=== PATIENT | female | born 1960 | race Caucasian/White ===

== ENCOUNTER → 2016-09-16 | Outpatient (CLI) | payer OTHER ==
[~2016-09-16] MED LIST: ASPI81CH PO; AUGM875T27 PO; BACIDCA PO; BACT800T5 PO; BACTDSTA PO; CEPA5.4L2 MT; CEPH500C PO; DOCU10CA PO; DOCU10ELUD PO; ENDO5TAB7 PO; GLIP5TAB8 PO; INSUH10VL SQ; INSULANT SC; METFORMIN PO; MICO2POW TOP; NAPR250T2 PO; NEUR250S PO; NOVOINJ13 SC; PERC5TAB6 PO; PERCOCET PO; SULF400T PO; TYLE325T5 PO
[2016-09-16 17:22] LABS: BASO # 0.1 K/mm3 (0.0-0.2); BASO % 0.8 % (0.0-1.0); EOS # 0.3 K/mm3 (0.0-0.50); LARGE UNSTAINED CELL # 0.2 K/mm3 (0.0-0.4); LARGE UNSTAINED CELL % 2.9 % (0.0-4.0); LYMPH # 2.5 K/mm3 (1.5-4.5); LYMPH % 34.3 % (24.0-44.0); MEAN CORPUSCULAR HEMOGLOBIN 28.3 pg (27.0-33.0); MEAN CORPUSCULAR HGB CONC 31.8 g/dl (32.0-36.5); MONO # 0.4 K/mm3 (0.0-0.8); MONO % 5.8 % (0.0-5.0); NEUTROPHILS # 3.9 K/mm3 (1.8-7.7); NEUTROPHILS % 52.2 % (36.0-66.0); PLATELET COUNT, AUTOMATED 224 k/mm3 (150-450); RED CELL DISTRIBUTION WIDTH 12.4 % (11.5-14.5); WHITE BLOOD COUNT 7.4 K/mm3 (4.0-10.0)
[2016-09-16 17:55] LABS: INR 0.81
[2016-09-16 21:28] LABS: ANION GAP 7 MEQ/L (8-16); BLOOD UREA NITROGEN 18 MG/DL (7-18); CALCIUM LEVEL 8.6 MG/DL (8.5-10.1); CARBON DIOXIDE LEVEL 28 MEQ/L (21-32); CHLORIDE LEVEL 102 MEQ/L (98-107); CREATININE FOR GFR 0.76 MG/DL (0.55-1.02); GLOMERULAR FILTRATION RATE > 60.0 (>51); POTASSIUM SERUM 5.1 MEQ/L (3.5-5.1); SODIUM LEVEL 137 MEQ/L (136-145)
[2016-09-16 21:41] LABS: GLUCOSE, FASTING 422 MG/DL (70-105)
== END ==
LOC: M LRY 14:47
PROVIDERS: ATTEND Surgery Vascular Surgery
DX: I70.212 Atherosclerosis of native arteries of extremities with intermittent claudication, left leg (principal); Z01.818 Encounter for other preprocedural examination; D69.8 Other specified hemorrhagic conditions

== ENCOUNTER → 2016-09-16 | Outpatient (REF) | payer OTHER ==
[2016-09-16 17:49] LABS: ALBUMIN 3.5 GM/DL (3.2-5.2); ALBUMIN/GLOBULIN RATIO 0.92 (1.00-1.93); ALKALINE PHOSPHATASE 110 U/L (45-117); ALT/SGPT 28 U/L (12-78); ANION GAP 9 MEQ/L (8-16); AST/SGOT 15 U/L (15-37); BILIRUBIN,TOTAL 0.4 MG/DL (0.2-1.0); BLOOD UREA NITROGEN 18 MG/DL (7-18); CALCIUM LEVEL 8.9 MG/DL (8.5-10.1); CARBON DIOXIDE LEVEL 27 MEQ/L (21-32); CHLORIDE LEVEL 102 MEQ/L (98-107); CHOLESTEROL LEVEL 266 MG/DL (<200); CREATININE FOR GFR 0.77 MG/DL (0.55-1.02); GLOMERULAR FILTRATION RATE > 60.0 (>51); POTASSIUM SERUM 5.1 MEQ/L (3.5-5.1); SODIUM LEVEL 138 MEQ/L (136-145); TOTAL PROTEIN 7.3 GM/DL (6.4-8.2); TRIGLYCERIDES LEVEL 382 MG/DL (<150)
[2016-09-16 18:58] LABS: GLUCOSE, FASTING 429 MG/DL (70-105)
[2016-09-16 21:20] LABS: MEAN CORPUSCULAR HEMOGLOBIN 28.7 pg (27.0-33.0); MEAN CORPUSCULAR HGB CONC 32.2 g/dl (32.0-36.5); RED CELL DISTRIBUTION WIDTH 13.4 % (11.5-14.5); WHITE BLOOD COUNT 8.5 K/mm3 (4.0-10.0)
== END ==
LOC: M SFHCLERA 14:12
PROVIDERS: ATTEND Family Medicine
DX: E11.8 Type 2 diabetes mellitus with unspecified complications (principal)

== ENCOUNTER → 2016-11-14 | Outpatient (REF) | payer OTHER ==
[2016-11-14 19:11] LABS: ANION GAP 6 MEQ/L (8-16); BLOOD UREA NITROGEN 12 MG/DL (7-18); CALCIUM LEVEL 9.2 MG/DL (8.5-10.1); CARBON DIOXIDE LEVEL 30 MEQ/L (21-32); CHLORIDE LEVEL 105 MEQ/L (98-107); GLOMERULAR FILTRATION RATE > 60.0 (>51); GLUCOSE, FASTING 134 MG/DL (70-105); POTASSIUM SERUM 4.2 MEQ/L (3.5-5.1); SODIUM LEVEL 141 MEQ/L (136-145)
== END ==
LOC: M LABDRAW1 16:52
PROVIDERS: ATTEND Physician Assistant Medical
DX: E11.621 Type 2 diabetes mellitus with foot ulcer (principal)

== ENCOUNTER → 2017-01-27 | Outpatient (REF) | payer OTHER ==
[2017-01-27 17:06] LABS: MEAN CORPUSCULAR HEMOGLOBIN 30.1 pg (27.0-33.0); MEAN CORPUSCULAR VOLUME 88.6 fl (80.0-96.0); RED CELL DISTRIBUTION WIDTH 12.5 % (11.5-14.5); WHITE BLOOD COUNT 10.3 K/mm3 (4.0-10.0)
[2017-01-27 17:27] LABS: ALBUMIN/GLOBULIN RATIO 1.05 (1.00-1.93); ALKALINE PHOSPHATASE 89 U/L (45-117); ALT/SGPT 28 U/L (12-78); ANION GAP 8 MEQ/L (8-16); AST/SGOT 12 U/L (15-37); BILIRUBIN,TOTAL 0.8 MG/DL (0.2-1.0); BLOOD UREA NITROGEN 21 MG/DL (7-18); CALCIUM LEVEL 9.4 MG/DL (8.5-10.1); CARBON DIOXIDE LEVEL 28 MEQ/L (21-32); CHLORIDE LEVEL 98 MEQ/L (98-107); CREATININE FOR GFR 0.95 MG/DL (0.55-1.02); GLOMERULAR FILTRATION RATE > 60.0 (>51); GLUCOSE, FASTING 291 MG/DL (70-105); POTASSIUM SERUM 4.7 MEQ/L (3.5-5.1); SODIUM LEVEL 134 MEQ/L (136-145); TOTAL PROTEIN 7.8 GM/DL (6.4-8.2)
== END ==
LOC: M SFHCLERA 11:53
PROVIDERS: ATTEND Family Medicine
DX: E11.621 Type 2 diabetes mellitus with foot ulcer (principal)

== ENCOUNTER → 2017-01-30 | Outpatient (REF) | payer OTHER | LOC: M LAB REF 16:51 | PROVIDERS: ATTEND Advanced Practice Midwife | DX: Z12.4 Encounter for screening for malignant neoplasm of cervix (principal) ==

== ENCOUNTER → 2017-03-13 | Outpatient (CLI) | payer OTHER ==
[~2017-03-13] MED LIST changes: +ENDO5TAB PO; -ENDO5TAB7 PO; +PERC5TAB12 PO; -PERC5TAB6 PO
--- NOTE | 2017-03-18 11:40 | REPMRS ---
Patient History The patient states she had a clinical breast exam in November 2016.Patient is postmenopausal. No known family history of cancer. Digital Mammo Screening Bilat: March 13, 2017 - Exam #: [id number] Bilateral CC and MLO view(s) were taken. Technologist: Pinky Vigil, Technologist FINDINGS: There are scattered fibroglandular densities. There has been no change in the appearance of the mammogram from the prior studies. There is a mild amount of residual fibroglandular tissue which is fairly symmetric. There is no interval development of dominant mass, architectural distortion, or clustered microcalcification suggestive of malignancy. Large coarse benign appearing calcifications are present. We were unable to locate any priors for comparison. No significant changes when compared with prior studies. ASSESSMENT: BI-RADS/ACR category 2 mammogram. Benign finding(s). Recommendation Routine screening mammogram in 1 year (for women over age 40). This mammogram was interpreted with the aid of an FDA-approved computer-aided dectection system. A. Negative x-ray reports should not delay biopsy if a dominant or clinically suspicious mass is present. B. Four to eight percent of cancers are not identified by mammography. C. Adenosis and dense breast may obscure an underlying neoplasm. Electronically Signed By: Jin Henning MD 03/18/17 [id number]
== END ==
LOC: M RAD 13:20
PROVIDERS: ATTEND Family Medicine
DX: Z12.4 Encounter for screening for malignant neoplasm of cervix (principal); Z12.39 Encounter for other screening for malignant neoplasm of breast

== ENCOUNTER → 2017-06-15 | Outpatient (REF) | payer MEDICARE, MEDICAID | LOC: M SFHCLERA 13:10 | PROVIDERS: ATTEND Family Medicine | DX: E10.65 Type 1 diabetes mellitus with hyperglycemia (principal) | CPT/HCPCS: 82043; 83036; G0463 ==

== ENCOUNTER → 2017-09-29 | Outpatient (REF) | payer MEDICARE, MEDICAID ==
[2017-09-29 21:12] LABS: ANION GAP 11 MEQ/L (8-16); BLOOD UREA NITROGEN 22 MG/DL (7-18); CALCIUM LEVEL 9.7 MG/DL (8.5-10.1); CARBON DIOXIDE LEVEL 29 MEQ/L (21-32); CHLORIDE LEVEL 101 MEQ/L (98-107); CREATININE FOR GFR 0.97 MG/DL (0.55-1.30); GLOMERULAR FILTRATION RATE > 60.0 (>51); POTASSIUM SERUM 4.4 MEQ/L (3.5-5.1); SODIUM LEVEL 141 MEQ/L (136-145)
[2017-09-29 21:19] LABS: GLUCOSE, FASTING 414 MG/DL (70-100)
[2017-09-29 21:34] LABS: ESTIMATED AVERAGE GLUCOSE 352 MG/DL (60-110); HEMOGLOBIN A1c 13.9 %
== END ==
LOC: M SFHCLERA 17:25
DX: E11.65 Type 2 diabetes mellitus with hyperglycemia (principal)
CPT/HCPCS: 83036

== ENCOUNTER → 2018-01-14 | Outpatient (REF) | payer MEDICARE, MEDICAID ==
[2018-01-14 12:35] LABS: HEMATOCRIT 38.6 % (36.0-47.0); HEMOGLOBIN 13.1 g/dl (12.0-15.5); MEAN CORPUSCULAR HEMOGLOBIN 29.6 pg (27.0-33.0); MEAN CORPUSCULAR HGB CONC 33.9 g/dl (32.0-36.5); MEAN CORPUSCULAR VOLUME 87.3 fl (80.0-96.0); PLATELET COUNT, AUTOMATED 222 10^3/uL (150-450); RED BLOOD COUNT 4.42 10^6/uL (4.00-5.40); RED CELL DISTRIBUTION WIDTH 12.2 % (11.5-14.5); WHITE BLOOD COUNT 8.5 10^3/uL (4.0-10.0)
[2018-01-14 12:57] LABS: ESTIMATED AVERAGE GLUCOSE 292 MG/DL (60-110); HEMOGLOBIN A1c 11.8 %
[2018-01-14 13:08] LABS: ALBUMIN 3.6 GM/DL (3.2-5.2); ALBUMIN/GLOBULIN RATIO 0.92 (1.00-1.93); ALKALINE PHOSPHATASE 117 U/L (45-117); ALT/SGPT 26 U/L (12-78); ANION GAP 9 MEQ/L (8-16); AST/SGOT 11 U/L (7-37); BILIRUBIN,TOTAL 0.7 MG/DL (0.2-1.0); BLOOD UREA NITROGEN 17 MG/DL (7-18); CALCIUM LEVEL 9.3 MG/DL (8.5-10.1); CARBON DIOXIDE LEVEL 26 MEQ/L (21-32); CHLORIDE LEVEL 103 MEQ/L (98-107); CHOLESTEROL LEVEL 183 MG/DL (<200); CHOLESTEROL RISK RATIO 3.155 (<5); CREATININE FOR GFR 0.81 MG/DL (0.55-1.30); GLOMERULAR FILTRATION RATE > 60.0 (>51); GLUCOSE, FASTING 353 MG/DL (70-100); HDL CHOLESTEROL 58 MG/DL (>40); LDL CHOLESTEROL 78.8 MG/DL (<100); NON-HDL-C 125 MG/DL; POTASSIUM SERUM 4.9 MEQ/L (3.5-5.1); SODIUM LEVEL 138 MEQ/L (136-145); TOTAL PROTEIN 7.5 GM/DL (6.4-8.2); TRIGLYCERIDES LEVEL 231 MG/DL (<150)
== END ==
LOC: M SFHCLERA 08:17
DX: E11.65 Type 2 diabetes mellitus with hyperglycemia (principal)
CPT/HCPCS: 84443

== ENCOUNTER → 2018-05-25 | Outpatient (REF) | payer MEDICARE, OTHER ==
[2018-05-25 17:41] LABS: ANION GAP 10 MEQ/L (8-16); BLOOD UREA NITROGEN 28 MG/DL (7-18); CALCIUM LEVEL 8.9 MG/DL (8.8-10.2); CARBON DIOXIDE LEVEL 26 MEQ/L (21-32); CHLORIDE LEVEL 101 MEQ/L (98-107); GLOMERULAR FILTRATION RATE > 60.0 (>45); GLUCOSE, FASTING 300 MG/DL (70-100); POTASSIUM SERUM 4.8 MEQ/L (3.5-5.1); SODIUM LEVEL 137 MEQ/L (136-145)
[2018-05-25 18:31] LABS: ESTIMATED AVERAGE GLUCOSE 272 MG/DL (60-110); HEMOGLOBIN A1c 11.1 %
== END ==
LOC: M SFHCLERA 14:39
DX: E11.621 Type 2 diabetes mellitus with foot ulcer (principal)
CPT/HCPCS: 83036

== ENCOUNTER → 2018-08-25 | Outpatient (REF) | payer MEDICARE, MEDICAID ==
[2018-08-25 20:18] LABS: BLOOD UREA NITROGEN 18 MG/DL (7-18); CALCIUM LEVEL 9.5 MG/DL (8.8-10.2); CARBON DIOXIDE LEVEL 29 MEQ/L (21-32); CHLORIDE LEVEL 104 MEQ/L (98-107); CREATININE FOR GFR 0.79 MG/DL (0.55-1.30); GLOMERULAR FILTRATION RATE > 60.0 (>45); GLUCOSE, FASTING 111 MG/DL (70-100); POTASSIUM SERUM 4.1 MEQ/L (3.5-5.1); SODIUM LEVEL 141 MEQ/L (136-145)
[2018-08-25 20:41] LABS: HEMOGLOBIN A1c 8.4 %
== END ==
LOC: M SFHCLERA 16:48
PROVIDERS: ATTEND Family Medicine
DX: E11.621 Type 2 diabetes mellitus with foot ulcer (principal)

== ENCOUNTER → 2018-09-08 | Outpatient (REF) | payer MEDICARE, MEDICAID ==
[2018-09-08 17:17] LABS: ALBUMIN 3.7 GM/DL (3.2-5.2); ALT/SGPT 44 U/L (12-78); BILIRUBIN,TOTAL 0.7 MG/DL (0.2-1.0); BLOOD UREA NITROGEN 18 MG/DL (7-18); CALCIUM LEVEL 9.2 MG/DL (8.8-10.2); CARBON DIOXIDE LEVEL 29 MEQ/L (21-32); CHLORIDE LEVEL 106 MEQ/L (98-107); CREATININE FOR GFR 0.71 MG/DL (0.55-1.30); GLOMERULAR FILTRATION RATE > 60.0 (>45); GLUCOSE, FASTING 102 MG/DL (70-100); POTASSIUM SERUM 4.2 MEQ/L (3.5-5.1); SODIUM LEVEL 140 MEQ/L (136-145); TOTAL PROTEIN 7.3 GM/DL (6.4-8.2)
== END ==
LOC: M SFHCLERA 10:44
PROVIDERS: ATTEND Family Medicine
DX: Z01.818 Encounter for other preprocedural examination (principal); H43.12 Vitreous hemorrhage, left eye

== ENCOUNTER → 2018-11-08 | Outpatient (REF) | payer MEDICARE, MEDICAID ==
[2018-11-08 20:51] LABS: ALBUMIN 3.6 GM/DL (3.2-5.2); ALT/SGPT 51 U/L (12-78); BILIRUBIN,TOTAL 0.6 MG/DL (0.2-1.0); BLOOD UREA NITROGEN 18 MG/DL (7-18); CALCIUM LEVEL 9.2 MG/DL (8.8-10.2); CARBON DIOXIDE LEVEL 29 MEQ/L (21-32); CHLORIDE LEVEL 106 MEQ/L (98-107); CHOLESTEROL LEVEL 236 MG/DL (<200); CHOLESTEROL RISK RATIO 4.627 (<5); CREATININE FOR GFR 0.72 MG/DL (0.55-1.30); GLOMERULAR FILTRATION RATE > 60.0 (>45); GLUCOSE, FASTING 127 MG/DL (70-100); HDL CHOLESTEROL 51 MG/DL (>40); LDL CHOLESTEROL 107 MG/DL (<100); NON-HDL-C 185 MG/DL; POTASSIUM SERUM 4.2 MEQ/L (3.5-5.1); SODIUM LEVEL 141 MEQ/L (136-145); TOTAL PROTEIN 7.3 GM/DL (6.4-8.2); TRIGLYCERIDES LEVEL 388 MG/DL (<150)
[2018-11-08 20:57] LABS: HEMOGLOBIN A1c 6.9 %
== END ==
LOC: M SFHCLERA 15:49
PROVIDERS: ATTEND Family Medicine
DX: E11.621 Type 2 diabetes mellitus with foot ulcer (principal)

== ENCOUNTER → 2019-03-03 | Outpatient (REF) | payer MEDICARE, MEDICAID ==
[~2019-03-03] MED LIST changes: -ASPI81CH PO; +ASPI81CH49 PO; -BACTDSTA PO; -DOCU10ELUD PO; +DOCU5LIQ PO; +OXYC1TAB23 PO; -PERCOCET PO; +SULF1TAB23 PO
[2019-03-03 17:01] LABS: ALBUMIN 3.5 GM/DL (3.2-5.2); ALT/SGPT 57 U/L (12-78); BILIRUBIN,TOTAL 0.8 MG/DL (0.2-1.0); BLOOD UREA NITROGEN 16 MG/DL (7-18); CALCIUM LEVEL 9.5 MG/DL (8.8-10.2); CARBON DIOXIDE LEVEL 29 MEQ/L (21-32); CHLORIDE LEVEL 105 MEQ/L (98-107); CHOLESTEROL LEVEL 141 MG/DL (<200); CHOLESTEROL RISK RATIO 2.711 (<5); CREATININE FOR GFR 0.91 MG/DL (0.55-1.30); GLOMERULAR FILTRATION RATE > 60.0 (>45); GLUCOSE, FASTING 222 MG/DL (70-100); HDL CHOLESTEROL 52 MG/DL (>40); LDL CHOLESTEROL 49 MG/DL (<100); NON-HDL-C 89 MG/DL; POTASSIUM SERUM 4.1 MEQ/L (3.5-5.1); SODIUM LEVEL 141 MEQ/L (136-145); TOTAL PROTEIN 7.2 GM/DL (6.4-8.2); TRIGLYCERIDES LEVEL 202 MG/DL (<150)
[2019-03-03 17:02] LABS: BASO # 0.1 10^3/uL (0.0-0.2); BASO % 0.5 % (0.0-1.0); EOS # 0.5 10^3/uL (0.0-0.50); EOS % 4.8 % (0.0-3.0); HEMATOCRIT 41.3 % (36.0-47.0); HEMOGLOBIN 13.2 g/dl (12.0-15.5); LYMPH # 2.5 10^3/uL (1.5-4.5); LYMPH % 23.7 % (24.0-44.0); MEAN CORPUSCULAR HEMOGLOBIN 28.6 pg (27.0-33.0); MEAN CORPUSCULAR VOLUME 89.6 fl (80.0-96.0); MONO # 0.8 10^3/uL (0.0-0.8); MONO % 7.8 % (0.0-5.0); NEUTROPHILS # 6.7 10^3/uL (1.8-7.7); NEUTROPHILS % 62.8 % (36.0-66.0); PLATELET COUNT, AUTOMATED 232 10^3/uL (150-450); RED BLOOD COUNT 4.61 10^6/uL (4.00-5.40); WHITE BLOOD COUNT 10.7 10^3/uL (4.0-10.0)
[2019-03-03 18:01] LABS: HEMOGLOBIN A1c 7.7 %
== END ==
LOC: M SFHCLERA 11:49
PROVIDERS: ATTEND Family Medicine
DX: E78.5 Hyperlipidemia, unspecified (principal); R10.11 Right upper quadrant pain; E11.621 Type 2 diabetes mellitus with foot ulcer

== ENCOUNTER → 2019-04-06 | Outpatient (REF) | payer MEDICARE, MEDICAID ==
[2019-04-06 19:16] LABS: APPEARANCE, URINE CLOUDY (CLEAR); BACTERIA, URINE AUTO 2+ (NEGATIVE); BILIRUBIN, URINE AUTO NEGATIVE (NEGATIVE); BLOOD, URINE BLOOD NEGATIVE (NEGATIVE); COLOR, URINE YELLOW (YELLOW); GLUCOSE, URINE (UA) AUTO NEGATIVE (NEGATIVE); KETONE, URINE AUTO NEGATIVE (NEGATIVE); LEUKOCYTE ESTERASE, URINE AUTO 3+ (NEGATIVE); MUCUS, URINE SMALL (NEGATIVE); NITRITE, URINE AUTO NEGATIVE (NEGATIVE); PROTEIN, URINE AUTO NEGATIVE (NEGATIVE); RBC, URINE AUTO 2 /HPF (0-3); SQUAMOUS EPITHELIAL CELL UR AU 2 /HPF (0-6); UROBILINOGEN, URINE AUTO 0.2 mg/dL (0.0-2.0); WBC, URINE AUTO TNTC /HPF (0-3)
== END ==
LOC: M SFHCLERA 11:30
PROVIDERS: ATTEND Family Medicine
DX: N39.41 Urge incontinence (principal)

== ENCOUNTER → 2019-05-31 | Outpatient (REF) | payer MEDICARE, MEDICAID ==
[2019-05-31 17:00] LABS: APPEARANCE, URINE CLEAR (CLEAR); BACTERIA, URINE AUTO NEGATIVE (NEGATIVE); BILIRUBIN, URINE AUTO NEGATIVE (NEGATIVE); BLOOD, URINE BLOOD NEGATIVE (NEGATIVE); COLOR, URINE YELLOW (YELLOW); GLUCOSE, URINE (UA) AUTO 1+ mg/dL (NEGATIVE); KETONE, URINE AUTO NEGATIVE (NEGATIVE); LEUKOCYTE ESTERASE, URINE AUTO NEGATIVE (NEGATIVE); MUCUS, URINE SMALL (NEGATIVE); NITRITE, URINE AUTO NEGATIVE (NEGATIVE); PROTEIN, URINE AUTO NEGATIVE (NEGATIVE); RBC, URINE AUTO 1 /HPF (0-3); SPECIFIC GRAVITY URINE AUTO 1.014 (1.002-1.035); SQUAMOUS EPITHELIAL CELL UR AU 0 /HPF (0-6); UROBILINOGEN, URINE AUTO 0.2 mg/dL (0.0-2.0); WBC, URINE AUTO 2 /HPF (0-3)
== END ==
LOC: M SFHCLERA 12:21
PROVIDERS: ATTEND Family Medicine
DX: R82.90 Unspecified abnormal findings in urine (principal); Z23 Encounter for immunization
CPT/HCPCS: 81001; 87086; 90682; G0008; G0463

== ENCOUNTER → 2019-06-16 | Outpatient (CLI) | payer MEDICARE, MEDICAID ==
--- NOTE | 2019-06-16 15:26 | REPMRS ---
Patient History The patient states she has not had a clinical breast exam in over a year. No known family history of cancer. The [facility] lifetime risk for breast cancer is 7.2 %. Digital Mammo Screening Bilat: June 16, 2019 - Exam #: [id number] Bilateral CC and MLO view(s) were taken. Technologist: Chrissy Dykes, Technologist Prior study comparison: March 13, 2017, bilateral digital mammo screening bilat performed at [facility]. FINDINGS: There are scattered fibroglandular densities. There has been no change in the appearance of the mammogram from the prior studies. There is a mild amount of residual fibroglandular tissue which is fairly symmetric. There is no interval development of dominant mass, architectural distortion, or clustered microcalcification suggestive of malignancy. Assessment: BI-RADS/ACR category 1 mammogram. Negative Mammogram. Recommendation Routine screening mammogram in 1 year (for women over age 40). This mammogram was interpreted with the aid of an FDA-approved computer-aided dectection system. Electronically Signed By: Peter Young MD 06/16/19 [id number]
== END ==
LOC: M RAD 10:49
PROVIDERS: ATTEND Family Medicine
DX: Z12.31 Encounter for screening mammogram for malignant neoplasm of breast (principal)

== ENCOUNTER → 2019-07-04 | Outpatient (REF) | payer MEDICARE, MEDICAID ==
[2019-07-04 17:37] LABS: CREATININE FOR GFR 1.13 MG/DL (0.55-1.30)
[2019-07-04 17:38] LABS: CALCIUM LEVEL 9.5 MG/DL (8.8-10.2); GLOMERULAR FILTRATION RATE 52.1 (>45); POTASSIUM SERUM 4.5 MEQ/L (3.5-5.1); THYROID STIMULATING HORMONE 1.73 uIU/ML (0.358-3.740)
[2019-07-04 19:22] LABS: HEMOGLOBIN A1c 7.4 %
== END ==
LOC: M SFHCLERA 12:38
PROVIDERS: ATTEND Family Medicine
DX: E11.621 Type 2 diabetes mellitus with foot ulcer (principal)
CPT/HCPCS: 80048; 83036; 84443; G0463

== ENCOUNTER → 2019-09-19 | Outpatient (REF) | payer MEDICARE, MEDICAID ==
[2019-09-19 18:06] LABS: CALCIUM LEVEL 9.5 MG/DL (8.8-10.2); CREATININE FOR GFR 1.2 MG/DL (0.55-1.30); GLOMERULAR FILTRATION RATE 48.6 (>45); POTASSIUM SERUM 4.6 MEQ/L (3.5-5.1)
== END ==
LOC: M SFHCLERA 10:20
PROVIDERS: ATTEND Family Medicine
DX: R82.90 Unspecified abnormal findings in urine (principal); E11.621 Type 2 diabetes mellitus with foot ulcer; I10 Essential (primary) hypertension
CPT/HCPCS: 80048; 83036; 87086; G0463

== ENCOUNTER → 2019-12-28 | Outpatient (REF) | payer MEDICARE, MEDICAID ==
[2019-12-28 18:24] LABS: CALCIUM LEVEL 8.8 MG/DL (8.8-10.2); POTASSIUM SERUM 4.5 MEQ/L (3.5-5.1)
[2019-12-28 18:30] LABS: HEMOGLOBIN A1c 7.3 %
== END ==
LOC: M SFHCLERA 14:13
PROVIDERS: ATTEND Family Medicine
DX: E11.65 Type 2 diabetes mellitus with hyperglycemia (principal)

== ENCOUNTER 2020-02-28 10:04 | Outpatient (RCR) | payer MEDICARE, MEDICAID | END 2020-03-16 | LOC: M PT 10:04 | PROVIDERS: ATTEND Family Medicine | DX: N39.41 Urge incontinence (principal) ==

== ENCOUNTER → 2020-08-27 | Outpatient (CLI) | payer MEDICARE, MEDICAID ==
--- NOTE | 2020-08-27 14:18 | REPMRS ---
Patient History The patient states she has not had a clinical breast exam in over a year. No known family history of cancer. 3D TOMOSYNTHESIS WAS PERFORMED. The [facility] lifetime risk for breast cancer is 7.0%. Volpara breast density b. Digital Woman Screen Mammo: August 27, 2020 - Exam #: [id number] Bilateral CC and MLO view(s) were taken. Technologist: Pinky Vigil, Technologist Prior study comparison: June 16, 2019, bilateral digital mammo screening bilat, performed at [facility]. March 13, 2017, bilateral digital mammo screening bilat, performed at [facility]. FINDINGS: There are scattered fibroglandular densities. There has been no change in the appearance of the mammogram from the prior studies. There is a mild amount of residual fibroglandular tissue which is fairly symmetric. There is no interval development of dominant mass, architectural distortion, or clustered microcalcification suggestive of malignancy. Assessment: BI-RADS/ACR category 1 mammogram. Negative Mammogram. Recommendation Routine screening mammogram in 1 year (for women over age 40). This mammogram was interpreted with the aid of an FDA-approved computer-aided dectection system. Electronically Signed By: Peter Young MD 08/27/20 [id number]
== END ==
LOC: M WHC 13:24
PROVIDERS: ATTEND Family Medicine
DX: Z12.31 Encounter for screening mammogram for malignant neoplasm of breast (principal)

== ENCOUNTER → 2020-09-26 | Outpatient (CLI) | payer MEDICARE, MEDICAID ==
[2020-09-26 13:05] LABS: C REACTIVE PROTEIN QUANTITATIV 0.3 MG/DL (0.00-0.30); CALCIUM LEVEL 9.7 MG/DL (8.8-10.2); CHOLESTEROL RISK RATIO 2.415 (<5); CREATININE FOR GFR 1.48 MG/DL (0.55-1.30); POTASSIUM SERUM 4.5 MEQ/L (3.5-5.1); THYROID STIMULATING HORMONE 1.78 uIU/ML (0.358-3.740); TOTAL PROTEIN 7.8 GM/DL (6.4-8.2)
[2020-09-26 13:35] LABS: HEMOGLOBIN A1c 5.6 %
[2020-09-26 16:35] LABS: APPEARANCE, URINE TURBID (CLEAR); BACTERIA, URINE AUTO NEGATIVE (NEGATIVE); BILIRUBIN, URINE AUTO NEGATIVE (NEGATIVE); BLOOD, URINE BLOOD 1+ (NEGATIVE); COLOR, URINE YELLOW (YELLOW); GLUCOSE, URINE (UA) AUTO NEGATIVE (NEGATIVE); KETONE, URINE AUTO NEGATIVE (NEGATIVE); LEUKOCYTE ESTERASE, URINE AUTO 3+ (NEGATIVE); MUCUS, URINE SMALL (NEGATIVE); NITRITE, URINE AUTO NEGATIVE (NEGATIVE); PROTEIN, URINE AUTO 2+ mg/dL (NEGATIVE); RBC, URINE AUTO TNTC /HPF (0-3); RENAL EPITHELIAL CELLS 6 /HPF; SPECIFIC GRAVITY URINE AUTO 1.016 (1.002-1.035); SQUAMOUS EPITHELIAL CELL UR AU 3 /HPF (0-6); UROBILINOGEN, URINE AUTO 0.2 mg/dL (0.0-2.0); WBC, URINE AUTO TNTC /HPF (0-3)
[2020-09-26 17:24] LABS: MAU/CREAT RATIO 51.4 MCG/MG (0.0-30.0)
== END ==
LOC: M WUC 09:37
PROVIDERS: ATTEND Family Medicine
DX: E11.621 Type 2 diabetes mellitus with foot ulcer (principal); R63.4 Abnormal weight loss

== ENCOUNTER → 2020-10-03 | Outpatient (CLI) | payer MEDICARE, MEDICAID ==
[2020-10-03 16:09] LABS: BASO # 0.1 10^3/uL (0.0-0.2); BASO % 0.5 % (0.0-1.0); EOS # 0.3 10^3/uL (0.0-0.5); EOS % 2.5 % (0.0-3.0); HEMATOCRIT 40.5 % (36.0-47.0); HEMOGLOBIN 13.3 g/dl (12.0-15.5); LYMPH # 3.9 10^3/uL (1.5-5.0); LYMPH % 33.9 % (24.0-44.0); MEAN CORPUSCULAR HEMOGLOBIN 29.6 pg (27.0-33.0); MEAN CORPUSCULAR HGB CONC 32.8 g/dl (32.0-36.5); MEAN CORPUSCULAR VOLUME 90.2 fl (80.0-96.0); MONO # 0.9 10^3/uL (0.0-0.8); MONO % 7.8 % (2.0-8.0); NEUTROPHILS # 6.3 10^3/uL (1.5-8.5); PLATELET COUNT, AUTOMATED 250 10^3/uL (150-450); RED BLOOD COUNT 4.49 10^6/uL (4.00-5.40); WHITE BLOOD COUNT 11.4 10^3/uL (4.0-10.0)
[2020-10-03 16:31] LABS: CALCIUM LEVEL 9.6 MG/DL (8.8-10.2); CREATININE FOR GFR 1.34 MG/DL (0.55-1.30); GLOMERULAR FILTRATION RATE 42.7 (>45); POTASSIUM SERUM 4.3 MEQ/L (3.5-5.1)
== END ==
LOC: M WUC 13:11
PROVIDERS: ATTEND Family Medicine
DX: R42 Dizziness and giddiness (principal)
CPT/HCPCS: 36415; 80048; 85025; G0463

== ENCOUNTER → 2020-11-05 | Outpatient (REF) | payer MEDICARE, MEDICAID | LOC: M SFHCWAGY 13:37 | PROVIDERS: ATTEND Obstetrics & Gynecology | DX: Z12.4 Encounter for screening for malignant neoplasm of cervix (principal); N95.2 Postmenopausal atrophic vaginitis | CPT/HCPCS: 87624; G0101; G0123; G0463 ==

== ENCOUNTER → 2021-04-01 | Outpatient (CLI) | payer MEDICARE, MEDICAID ==
[2021-04-01 16:45] LABS: BASO % 0.3 % (0.0-1.0); EOS # 0.3 10^3/uL (0.0-0.5); EOS % 3.6 % (0.0-3.0); HEMATOCRIT 38.9 % (36.0-47.0); LYMPH # 3.2 10^3/uL (1.5-5.0); LYMPH % 36.6 % (24.0-44.0); MEAN CORPUSCULAR HEMOGLOBIN 29.7 pg (27.0-33.0); MEAN CORPUSCULAR HGB CONC 33.4 g/dl (32.0-36.5); MONO # 0.7 10^3/uL (0.0-0.8); MONO % 7.8 % (2.0-8.0); NEUTROPHILS # 4.5 10^3/uL (1.5-8.5); NEUTROPHILS % 51.6 % (36.0-66.0); PLATELET COUNT, AUTOMATED 223 10^3/uL (150-450); RED BLOOD COUNT 4.37 10^6/uL (4.00-5.40); WHITE BLOOD COUNT 8.7 10^3/uL (4.0-10.0)
[2021-04-01 17:35] LABS: ALBUMIN 3.7 GM/DL (3.2-5.2); ALT/SGPT 23 U/L (12-78); BLOOD UREA NITROGEN 32 MG/DL (7-18); CALCIUM LEVEL 8.9 MG/DL (8.8-10.2); CARBON DIOXIDE LEVEL 25 MEQ/L (21-32); CHLORIDE LEVEL 105 MEQ/L (98-107); CREATININE FOR GFR 1.58 MG/DL (0.55-1.30); FOLATE 10.3 NG/ML; GLOMERULAR FILTRATION RATE 35.2 (>45); GLUCOSE, FASTING 163 MG/DL (70-100); POTASSIUM SERUM 4.4 MEQ/L (3.5-5.1); RHEUMATOID FACTOR QUANT < 10.0 IU/ML (<15.0); SODIUM LEVEL 138 MEQ/L (136-145); TOTAL PROTEIN 7.3 GM/DL (6.4-8.2); VITAMIN B12 LEVEL 635 PG/ML
[2021-04-01 19:41] LABS: ERYTHROCYTE SEDIMENTATION RATE 35 mm/hr (0-30)
== END ==
LOC: M WUC 14:29
PROVIDERS: ATTEND Psychiatry & Neurology Neurology
DX: R41.82 Altered mental status, unspecified (principal); R47.01 Aphasia

== ENCOUNTER → 2021-06-20 | Outpatient (CLI) | payer MEDICARE, MEDICAID ==
[2021-06-20 16:31] LABS: CALCIUM LEVEL 9.5 MG/DL (8.8-10.2); CREATININE FOR GFR 1.15 MG/DL (0.55-1.30); GLOMERULAR FILTRATION RATE 50.7 (>45); POTASSIUM SERUM 4.2 MEQ/L (3.5-5.1)
[2021-06-20 16:49] LABS: HEMOGLOBIN A1c 5.8 %
== END ==
LOC: M WUC 13:13
PROVIDERS: ATTEND Family Medicine
DX: E11.65 Type 2 diabetes mellitus with hyperglycemia (principal)
CPT/HCPCS: 36415; 80048; 83036; G0463

== ENCOUNTER 2021-06-25 09:58 | Inpatient (IN) | payer MEDICARE, MEDICAID ==
[~2021-06-25] VITALS: Ht 160 cm; Wt 77.9 kg
[2021-06-25] MEDS ORDERED: LIDOCAINE 2% 5ML JELLY UROJET TOP ONE (10:20)
[2021-06-25 10:43] LABS: EOS % 0.6 % (0.0-3.0); HEMOGLOBIN 12.5 g/dl (12.0-15.5); LYMPH # 1.6 10^3/uL (1.5-5.0); LYMPH % 24.7 % (24.0-44.0); MEAN CORPUSCULAR HEMOGLOBIN 29.8 pg (27.0-33.0); MEAN CORPUSCULAR HGB CONC 33.8 g/dl (32.0-36.5); MEAN CORPUSCULAR VOLUME 88.3 fl (80.0-96.0); MONO # 0.7 10^3/uL (0.0-0.8); MONO % 10.8 % (2.0-8.0); NEUTROPHILS % 63.6 % (36.0-66.0); PLATELET COUNT, AUTOMATED 149 10^3/uL (150-450); RED BLOOD COUNT 4.19 10^6/uL (4.00-5.40); WHITE BLOOD COUNT 6.3 10^3/uL (4.0-10.0)
--- NOTE | 2021-06-25 11:09 | REP ---
INDICATION: Altered Mental Status. COMPARISON: None. TECHNIQUE: Noncontrast axial soft tissue and bone windows with coronal reconstructions provided. FINDINGS: Ventricles are midline generally symmetric and dilated in proportion to the moderately severe diffuse atrophy. Basal ganglia are symmetric there heterogeneous low-attenuation white matter changes in the periventricular, centrum semiovale and subcortical white matter in both hemispheres. Cortical stripe shows diffuse atrophy, greatest in temporal and frontal lobes. No vascular territory infarct, intracranial hemorrhage, mass or mass effect. The brainstem grossly intact there is some mild cerebellar atrophy without definite infarct, mass or posterior fossa hemorrhage basal cisterns intact visualized mastoids intact sinuses show some minor ethmoid sinus mucosal thickening but otherwise clear. The skull base and calvarium are without fracture or focal lesion. IMPRESSION: 1. Ventriculomegaly in proportion to cerebral/cerebellar atrophy without intracranial hemorrhage, vascular territory infarct, mass or mass effect. 2. Chronic small vessel white matter ischemic changes of aging. 3. Some ethmoid sinus mucosal thickening with sinuses, mastoids, skull base and calvarium without acute finding otherwise. <Electronically signed by Jin Henning > 06/25/21 [id number]
--- NOTE | 2021-06-25 11:13 | REP ---
INDICATION: Altered Mental Status. COMPARISON: None. TECHNIQUE: Trauma protocol with axial soft tissue and bone window settings in both coronal and sagittal bone window reconstructions. FINDINGS: Mastoid aeration symmetric and normal visualized skull base intact the ring of C1 is intact in the patient's ship of the dens to anterior arch and lateral masses C1 is normal. Some loss of the normal cervical lordosis. Vertebral body heights and disc space heights are preserved. No compression deformity or prevertebral swelling. The dens shows some spurring superiorly in narrowing at the articulation between the anterior arch of C1 and the dens. No prevertebral swelling. Spinous processes, lamina, pedicles facets, transverse processes and transverse foramina are without acute finding I see no spinal or foraminal stenosis. Lung apices are clear no abnormal soft tissues findings about the cervical spine no prevertebral swelling. IMPRESSION: 1. Some minor degenerative changes without destructive lesion, fracture, spinal or foraminal stenosis. No prevertebral swelling or other acute finding about the cervical spine. <Electronically signed by Jin Henning > 06/25/21 0611
[2021-06-25 11:24] LABS: RSV AMPLIFICATION NEGATIVE (NEGATIVE)
[2021-06-25] MEDS ORDERED: LISI-898 PO (11:41)
[2021-06-25] MEDS ORDERED: ATOR40TA75 PO (11:41)
[2021-06-25] MEDS ORDERED: TRIA1OI TOP (11:41)
[2021-06-25] MEDS ORDERED: BASA100I SC ×2 (11:41)
[2021-06-25] MEDS ORDERED: CLAR10CA3 PO (11:41)
[2021-06-25] MEDS ORDERED: POLY1POW38 PO (11:41)
[2021-06-25 11:49] LABS: ALT/SGPT 35 IU/L (0-32); BILIRUBIN,TOTAL 0.8 MG/DL (0.2-1.0); BLOOD UREA NITROGEN 23 MG/DL (7-18); CALCIUM LEVEL 8.7 MG/DL (8.8-10.2); CARBON DIOXIDE LEVEL 29 mmol/L (20-29); CHLORIDE LEVEL 106 MEQ/L (98-107); CK-MB VALUE MASS 1.6 NG/ML (<3.6); CPK CREATINE PHOSPHOKINASE 847 U/L (26-192); CREATININE FOR GFR 1.03 MG/DL (0.55-1.30); GLOMERULAR FILTRATION RATE 57.6 (>45); GLUCOSE, FASTING 114 MG/DL (70-100); MB/CK RELATIVE INDEX 0.18 (< OR =4); POTASSIUM SERUM 4.3 MEQ/L (3.5-5.1); SODIUM LEVEL 142 MEQ/L (136-145)
[2021-06-25 11:50] LABS: ACETAMINOPHEN LEVEL < 2.0 UG/ML (10.0-30.0); ALBUMIN 3.1 GM/DL (3.2-5.2); BILIRUBIN,DIRECT 0.3 MG/DL (0.0-0.2); ETHYL ALCOHOL (ETHANOL) < 0.003 % (0.000-0.010); SALICYLATE LEVEL < 1.7 MG/DL (5.0-30.0); THYROID STIMULATING HORMONE 0.268 uIU/ML (0.358-3.740); TOTAL PROTEIN 7.1 GM/DL (6.4-8.2); TROPONIN I 0.07 NG/ML (< 0.10)
[2021-06-25] MEDS ORDERED: LORA-674 PO (12:04)
[2021-06-25] MEDS ORDERED: HOME MED LIST COMPLETE! XX SCH (12:05)
--- NOTE | 2021-06-25 12:12 | REP ---
INDICATION: Altered Mental Status. COMPARISON: None. TECHNIQUE: AP supine FINDINGS: The technique utilized in obtaining the radiograph has magnified the cardiac silhouette and accentuated the interstitial markings. The superior mediastinal structures are midline. The cardiac silhouette is unremarkable in size, shape, and position. The diaphragmatic surfaces of the lungs are regular, and the costophrenic angles are clear. The pulmonary delacruz are clear. The imaged osseous structures are intact. IMPRESSION: There is no acute cardiopulmonary disease. <Electronically signed by Serjio Porter > 06/25/21 2500
--- NOTE | 2021-06-25 12:14 | REP ---
INDICATION: Altered Mental Status. COMPARISON: None. TECHNIQUE: A single AP view of the pelvis was performed. FINDINGS: There is a left femoral neck fracture. There is evidence of a left pubic symphysis fracture. Examination is markedly limited as the AP view is seen with gross artifact and the other attempted AP views which are actually oblique views show the abnormal lucency parent IMPRESSION: There is a fracture of the left femoral neck. Additional pelvic fractures cannot be ruled out. CT is recommended. At least, there appears to be an additional left-sided pubic symphysis fracture. <Electronically signed by Serjio Porter > 06/25/21 [id number]
--- NOTE | 2021-06-25 12:16 | REP ---
INDICATION: Altered Mental Status. COMPARISON: None. TECHNIQUE: AP and lateral views bilateral FINDINGS: The bones are markedly demineralized. There has been previous right tibial and fibular ORIF. There is no evidence of an acute fracture. IMPRESSION: No evidence of an acute osseous abnormality. <Electronically signed by Serjio Porter > 06/25/21 [id number]
--- NOTE | 2021-06-25 12:17 | REP ---
INDICATION: Altered Mental Status. COMPARISON: Bilateral hips and AP pelvis today TECHNIQUE: A total of 9 views were utilized to encompass the entirety of the femur in 2 projections. Exam difficult as patient movement was limited. FINDINGS: Right femur: Some minor degenerative changes of the right hip. There is no fracture or focal lesion of the femoral shaft on the right the distal femoral condyles and patella were without fracture. There are vascular calcifications of the femoral and popliteal arteries as well as proximal calf arteries. Left femur: Subcapital fracture of the left femoral neck with varus deformity. Intertrochanteric region intact proximal to distal femoral shaft unremarkable. Femoral condyles and patella were unremarkable on the right side. Heavy vascular calcifications in the femoral artery. IMPRESSION: 1. Left femoral neck fracture with varus deformity but no dislocation of the femoral head from the acetabulum. Some degenerative changes at the hips on both sides but no other fractures or focal lesions in either femur. <Electronically signed by Jin Henning > 06/25/21 2557
--- NOTE | 2021-06-25 12:17 | REP ---
INDICATION: Altered Mental Status. COMPARISON: None TECHNIQUE: A single attempted frog-lateral view of each hip was obtained FINDINGS: There is a left femoral neck fracture. IMPRESSION: Left femoral neck fracture. Please review the report generated from the AP pelvis also obtained today. <Electronically signed by Serjio Porter > 06/25/21 [id number]
[2021-06-25 13:02] LABS: AMPHETAMINES LEVEL URINE NEGATIVE (NEGATIVE); BARBITURATES URINE NEGATIVE (NEGATIVE); BENZODIAZEPINES URINE NEGATIVE (NEGATIVE); CANNABINOIDS URINE NEGATIVE (NEGATIVE); COCAINE METABOLITE URINE NEGATIVE (NEGATIVE); METHADONE URINE NEGATIVE (NEGATIVE); OPIATES URINE NEGATIVE (NEGATIVE); PHENCYCLIDINE URINE NEGATIVE (NEGATIVE)
--- NOTE | 2021-06-25 13:14 | REP ---
INDICATION: fall...include both hips; plain film + hip fx left. COMPARISON: None. TECHNIQUE: 3 x 3 mm increments using helical technique in windowed primarily in bone settings. FINDINGS: There is a partially impacted left femoral neck fracture. There are no additional fractures. Degenerative changes seen involving the hip joints and sacroiliac joints. There is a pelvic mass with calcifications likely uterine myomatous changes. IMPRESSION: Left hip fracture and degenerative changes. No additional fractures are identified. <Electronically signed by Serjio Porter > 06/25/21 0398
[2021-06-25 13:19] LABS: ABG BASE EXCESS 2.3 (-2.0-2.0); ABG HCO3 26.3 MEQ/L (22.0-26.0); ABG O2 SATURATION 93.9 % (95.0-99.0); ABG PARTIAL PRESSURE CO2 38.4 mmHg (35.0-45.0); ABG PARTIAL PRESSURE O2 67.5 mmHg (75.0-100.0); ABG STANDARD HCO3 26.5 MEQ/L (22.0-26.0); ABG TOTAL CO2 27.4 MEQ/L (23.0-31.0); ABG pH (ARTERIAL) 7.453 UNITS (7.350-7.450)
--- NOTE | 2021-06-25 14:44 | HPEPDOC ---
General Date of Admission 06/25/21 Date of Service: Jun 25, 2021 Chief Complaint The patient is a 61-year-old female admitted with a reason for visit of S/P Fall,Ams. Source: Patient Exam Limitations: No limitations History of Present Illness Patient is 61 years old female with past medical history of expressive aphasia, CVA, type 2 diabetes presented to hospital after mechanical fall. According to her who was present in the room she developed mechanical fall 4 days ago. Patient usually walks with walker after possible stroke around 6 months ago. Her stated that in January 2021 patient developed difficulties in speech and left sided weakness. He did not bring her to the emergency room or to primary care doctor. Patient started using a walker and became aphasic. According to her she understand questions and she can write answer. Sometimes she can tell yes or no. Today, he decided to bring the patient to ER because of her persistent pain over left hip area. In ER CT head was done and showed Ventriculomegaly in proportion to cerebral/cerebellar atrophy without intracranial hemorrhage, vascular territory infarct, mass or mass effect.. Left hip x-ray showed left femoral neck fracture Additional pelvic fractures cannot be ruled out,. Chest x-ray showed no acute cardiopulmonary disease. CT abdomen/pelvis showed Left hip fracture and degenerative changes. No additional fractures are identified. EKG shows normal sinus rhythm without acute ischemic changes. Patient does not have leukocytosis, CPK 847. COVID-19 test positive Home Medications Scheduled Atorvastatin Calcium (Atorvastatin Calcium) 40 Mg Tablet, 40 MG PO QHS, (Reported) Insulin Glargine,Hum.rec.anlog (Basaglar Kwikpen U-100) 100 Unit/1 Ml Insuln.pen, 65 UNITS SC BID, (Reported) Lisinopril (Lisinopril) 5 Mg Tablet, 5 MG PO DAILY, (Reported) Loratadine (Loratadine) 10 Mg Tablet, 10 MG PO DAILY, (Reported) Scheduled PRN Polyethylene Glycol 3350 (Polyethylene Glycol 3350) 17 Gm Powd.pack, 17 GM PO DAILY PRN for CONSTIPATION, (Reported) Triamcinolone Acet (Triamcinolone Acetonide 0.1% Oint) 15 Gm Oint...g., 1 APLCT TOP BID PRN for RASH, (Reported) APPLY TO AFFECTED AREA OF ARMS Allergies Coded Allergies: No Known Allergies (Unverified , 06/25/21) Past Medical History Medical History expressive aphasia, possible CVA, type 2 diabetes Family History Unable to obtain Social History * Smoker: Denies Alcohol: Denies Drugs: denies A-FIB/CHADSVASC A-FIB History Current/History of A-Fib/PAF?: No Current PO Anticoag Therapy: No Review of Systems Constitutional: Denies: Chills, Fever Eyes: Denies: Pain ENT: Denies: Head Aches Pulmonary: Denies: Dyspnea Cardiovascular: Denies: Chest Pain Gastrointestinal: Denies: Nausea Genitourinary: Denies: Dysuria Hematologic: Denies: Bruising Endocrine: Denies: Polydipsia Musculoskeletal: Reports: Leg Pain Neurological: Reports: Weakness (Left-sided weakness), Change in speech Psych: Reports: Mood Normal Physical Examination General Exam: Positive: Alert Eye Exam: Positive: PERRLA ENT Exam: Positive: Atraumatic Neck Exam: Positive: Supple; Negative: JVD Chest Exam: Positive: Clear to auscultation Heart Exam: Positive: Rate Normal Telemetry: Positive: No significant arrhythmia Abdomen Exam: Positive: Normal bowel sounds Extremity Exam: Positive: Tenderness (Over left hip); Negative: Clubbing, Edema Skin Exam: Positive: Nl turgor and temperature Neuro Exam: Positive: Cranial Nerves 3-12 NL Psych Exam: Positive: Mood NL Vital Signs Vital Signs Date Time Temp Pulse Resp B/P (MAP) Pulse Ox O2 Delivery O2 Flow Rate FiO2 06/25/21 14:00 16 149/76 (100) 96 06/25/21 13:58 97 06/25/21 10:18 98.8 Room Air Laboratory Data Labs 24H Laboratory Tests 2 06/25/21 10:34: Anion Gap 7L, Glomerular Filtration Rate 57.6, Calcium Level 8.7L, Total Bilirubin 0.8, Direct Bilirubin 0.3H, Aspartate Amino Transf (AST/SGOT) 71, Alanine Aminotransferase (ALT/SGPT) 35H, Alkaline Phosphatase 64, Ammonia < 10, Total Creatine Kinase 847H, Creatine Kinase MB 1.6, Creatine Kinase MB Relative Index 0.18, Troponin I 0.07, Total Protein 7.1, Albumin 3.1L, Albumin/Globulin Ratio 0.8L, Thyroid Stimulating Hormone (TSH) 0.268L, Salicylates Level < 1.7L, Acetaminophen Level < 2.0L, Ethyl Alcohol Level < 0.003 06/25/21 10:35: Immature Granulocyte % (Auto) 0.3, Neutrophils (%) (Auto) 63.6, Lymphocytes (%) (Auto) 24.7, Monocytes (%) (Auto) 10.8H, Eosinophils (%) (Auto) 0.6, Basophils (%) (Auto) 0.0, Neutrophils # (Auto) 4.0, Lymphocytes # (Auto) 1.6, Monocytes # (Auto) 0.7, Eosinophils # (Auto) 0.0, Basophils # (Auto) 0.0, Nucleated Red Blood Cells % (auto) 0.0, Lactic Acid Level 0.9 06/25/21 10:40: Coronavirus (COVID-19)(PCR) POSITIVEA, Influenza Type A (RT-PCR) NEGATIVE, Influenza Type B (RT-PCR) NEGATIVE, Respiratory Syncytial Virus (PCR) NEGATIVE 06/25/21 12:14: Urine Color JESUS, Urine Appearance CLOUDYH, Urine pH 5.0, Urine Specific Shidler 1.026, Urine Protein 2+H, Urine Glucose (UA) 1+H, Urine Ketones NEGATIVE, Urine Blood NEGATIVE, Urine Nitrite NEGATIVE, Urine Bilirubin NEGATIVE, Urine Urobilinogen 0.2, Urine Leukocyte Esterase NEGATIVE, Urine WBC (Auto) 7H, Urine RBC (Auto) 9H, Urine Hyaline Casts (Auto) 0, Urine Bacteria (Auto) NEGATIVE, Urine Squamous Epithelial Cells 5, Urine Mucus (Auto) LARGE, Urine Sperm (Auto) , Urine Opiates Screen NEGATIVE, Urine Methadone Screen NEGATIVE, Urine Barbiturates Screen NEGATIVE, Urine Phencyclidine Screen NEGATIVE, Urine Amphetamines Screen NEGATIVE, Urine Benzodiazepines Screen NEGATIVE, Urine Cocaine Metabolite Screen NEGATIVE, Urine Cannabinoids Screen NEGATIVE 06/25/21 12:59: Blood Gas Bicarbonate Standard 26.5H, Arterial Blood pH 7.453H, Arterial Blood Partial Pressure CO2 38.4, Arterial Blood Partial Pressure O2 67.5L, Arterial Blood Total CO2 27.4, Arterial Blood HCO3 26.3H, Arterial Blood Base Excess 2.3H, Arterial Blood Oxygen Saturation 93.9L CBC/BMP Laboratory Tests 06/25/21 10:34 06/25/21 10:35 Microbiology Microbiology 06/25/21 Blood Culture, Received Pending Assessment/Plan Patient is 61 years old female with past medical history of expressive aphasia, CVA, type 2 diabetes presented to hospital after mechanical fall. According to her who was present in the room she developed mechanical fall 4 days ago. Patient usually walks with walker after possible stroke around 6 months ago. Her stated that in January 2021 patient developed difficulties in speech and left sided weakness. He did not bring her to the emergency room or to primary care doctor. Patient started using a walker and became aphasic. According to her she understand questions and she can write answer. Sometimes she can tell yes or no. Today, he decided to bring the patient to ER because of her persistent pain over left hip area. In ER CT head was done and showed Ventriculomegaly in proportion to cerebral/cerebellar atrophy without intracranial hemorrhage, vascular territory infarct, mass or mass effect.. Left hip x-ray showed left femoral neck fracture Additional pelvic fractures cannot be ruled out,. Chest x-ray showed no acute cardiopulmonary disease. CT abdomen/pelvis showed Left hip fracture and degenerative changes. No additional fractures are identified. EKG shows normal sinus rhythm without acute ischemic changes. Patient does not have leukocytosis, CPK 847. COVID-19 test positive Problems (1) Femoral neck fracture Status: Acute Problem Text: Appreciate/agree with orthopedic surgeon consult Pain management EKG does not show any acute ischemic changes Around 5 PM patient developed fever 101. Most likely secondary to viral infection with COVID-19. Patient not tachycardic, normotensive. Unlikely patient has any source of bacterial infection. Chest x-ray negative for acute pulmonary infiltrate. No open skin sources of infection. Patient cleared for surgery today (2) Fall Status: Acute Problem Text: PT/OT (3) Type 2 diabetes mellitus Problem Text: Detemir 65 units twice daily Insulin sliding scale (4) Neglected elder Status: Acute Problem Text: Social work on board (5) Expressive aphasia Status: Chronic Problem Text: Unclear etiology Differential diagnosis includes CV versus normal pressure hydrocephalus I talked to Dr. Sabillon he recommended neck MRI and MRI of the brain (6) COVID-19 Status: Acute Problem Text: Patient seems to be asymptomatic She is on room air Lungs clear on auscultation Continue to monitor labs according to COVID-19 protocol Plan / VTE VTE Prophylaxis Ordered?: Yes ARACELI TORRES DO Jun 25, 2021 14:44
[2021-06-25] MEDS ORDERED: GLUCOSE 4GM CHEW TABLET PO PRN (14:50)
[2021-06-25] MEDS ORDERED: GLUCAGON INJ 1MG VIAL SC PRN (14:50)
[2021-06-25 16:50] VITALS: BP 122/76
[2021-06-25] MEDS: HumaLOG INSULIN (NovoLOG) PER UNIT SC SCH ×2 (17:30→21:00)
[2021-06-25] MEDS ORDERED: methylPREDNISolone 125MG 2ML VIAL IV PRN (17:40)
[2021-06-25] MEDS ORDERED: diphenhydrAMINE 50MG/ML VIAL (J1200) IV PRN (17:40)
[2021-06-25] MEDS ORDERED: NS 1,000 ML IV SCH (17:40)
[2021-06-25] MEDS ORDERED: ALBUTEROL SULFATE 2.5 MG/0.5 ML INH NEB SOLN INH PRN (17:40)
[2021-06-25] MEDS ORDERED: ALBUTEROL 90 MCG/ACT 8GM HFA INHALER INH PRN (17:40)
[2021-06-25] MEDS ORDERED: BAMLANIVIMAB 700 MG, ETESEVIMAB 1,400 MG in NS 250 ML IV ONE (17:40)
[2021-06-25] MEDS ORDERED: EPINEPHrine INJ 1 MG/ML 1ML AMP IM PRN (17:40)
[2021-06-25] MEDS ORDERED: VANCOMYCIN 1000MG/20ML VIAL As Ordered ONE (18:39)
[2021-06-25] MEDS ORDERED: ceFAZolin 1GM VIAL (J0690 PER 500MG) As Ordered ONE (18:40)
[2021-06-25] MEDS: NS 1,000 ML IV SCH ×2 (18:52→21:10)
--- NOTE | 2021-06-25 19:36 | ECGEPIP ---
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
[2021-06-25 20:00] VITALS: O2SAT 94
[2021-06-25] MEDS ORDERED: CASIRIVIMAB (REGN10933) 600 MG, IMDEVIMAB (REGN10987) 600 MG in NS 250 ML IV ONE (21:00)
[2021-06-25] MEDS: ATORVASTATIN 20 MG TAB PO SCH (21:33)
[2021-06-25] MEDS: LEVEMIR (INSULIN DETEMIR) 1 UNITS/0.01ML SC SCH (21:33)
[2021-06-25] MEDS: HEPARIN SOD (PORCINE) 5000UNITS/ML 1ML VIAL/SYRINGE SC SCH (21:33)
[2021-06-25 22:00] VITALS: BP 126/85
[2021-06-26] VITALS (9 sets, daily range): BP systolic 113–136; BP diastolic 63–98; O2SAT 93–100
[2021-06-26] MEDS: NS 1,000 ML IV SCH ×3 (05:44→19:47)
[2021-06-26 06:14] LABS: BASO % 0.2 % (0.0-1.0); EOS % 0.4 % (0.0-3.0); HEMOGLOBIN 11.4 g/dl (12.0-15.5); LYMPH # 1.7 10^3/uL (1.5-5.0); LYMPH % 31.3 % (24.0-44.0); MEAN CORPUSCULAR HEMOGLOBIN 29.5 pg (27.0-33.0); MEAN CORPUSCULAR HGB CONC 33.5 g/dl (32.0-36.5); MEAN CORPUSCULAR VOLUME 88.1 fl (80.0-96.0); MONO # 0.7 10^3/uL (0.0-0.8); MONO % 13.5 % (2.0-8.0); NEUTROPHILS # 2.9 10^3/uL (1.5-8.5); NEUTROPHILS % 54.2 % (36.0-66.0); PLATELET COUNT, AUTOMATED 134 10^3/uL (150-450); RED BLOOD COUNT 3.86 10^6/uL (4.00-5.40); WHITE BLOOD COUNT 5.3 10^3/uL (4.0-10.0)
[2021-06-26 06:28] LABS: BLOOD UREA NITROGEN 29 MG/DL (7-18); CARBON DIOXIDE LEVEL 26 MEQ/L (21-32); CHLORIDE LEVEL 110 MEQ/L (98-107); CREATININE FOR GFR 0.96 MG/DL (0.55-1.30); GLOMERULAR FILTRATION RATE > 60.0 (>45); GLUCOSE, FASTING 94 MG/DL (70-100); POTASSIUM SERUM 3.9 MEQ/L (3.5-5.1); SODIUM LEVEL 142 MEQ/L (136-145)
[2021-06-26 06:29] LABS: ALBUMIN 2.5 GM/DL (3.2-5.2); ALT/SGPT 31 U/L (12-78); BILIRUBIN,TOTAL 0.7 MG/DL (0.2-1.0); CALCIUM LEVEL 8.3 MG/DL (8.8-10.2); TOTAL PROTEIN 6.7 GM/DL (6.4-8.2)
[2021-06-26] MEDS: HumaLOG INSULIN (NovoLOG) PER UNIT SC SCH ×4 (07:30→21:00)
[2021-06-26] MEDS ORDERED: EPINEPHrine INJ 1 MG/ML 1ML AMP IM PRN (09:00)
[2021-06-26] MEDS ORDERED: ALBUTEROL SULFATE 2.5 MG/0.5 ML INH NEB SOLN INH PRN (09:00)
[2021-06-26] MEDS ORDERED: CASIRIVIMAB (REGN10933) 600 MG, IMDEVIMAB (REGN10987) 600 MG in NS 250 ML IV ONE (09:00)
[2021-06-26] MEDS ORDERED: diphenhydrAMINE 50MG/ML VIAL (J1200) IV PRN (09:00)
[2021-06-26] MEDS ORDERED: ALBUTEROL 90 MCG/ACT 8GM HFA INHALER INH PRN (09:00)
[2021-06-26] MEDS ORDERED: methylPREDNISolone 125MG 2ML VIAL IV PRN (09:00)
[2021-06-26] MEDS: lisinopriL 5 MG TAB PO SCH (09:16)
[2021-06-26] MEDS: LEVEMIR (INSULIN DETEMIR) 1 UNITS/0.01ML SC SCH ×2 (09:17→21:00)
[2021-06-26] MEDS: HEPARIN SOD (PORCINE) 5000UNITS/ML 1ML VIAL/SYRINGE SC SCH (09:17)
[2021-06-26] MEDS: LORATADINE 10 MG TAB PO SCH (09:19)
[2021-06-26] MEDS: D5W/0.45% SODIUM CHLORIDE 1,000 ML IV SCH (12:38)
--- NOTE | 2021-06-26 13:48 | IPNPDOC ---
Text Note Date of Service The patient was seen on 06/26/21. NOTE Subjective: No new acute events overnight. Patient denied shortness of breath, chest pain, palpitations, diarrhea or dysuria. Patient developed fever yesterday subsided after Tylenol. Objective: GENERAL APPEARANCE: Aphasic female HEENT: no scleral icterus, no JVD, EOMI CARDIOVASCULAR: S1S2 LUNGS: Diminished lung sounds bilaterally ABDOMEN: soft & not tender w palpation MUSCULOSKELETAL: no cyanosis, no swelling INTEGUMENT: no generalized pallor NEUROLOGICAL: cranial nerve function from 2-12 intact, follows commands Assessment/Plan Patient is 61 years old female with past medical history of expressive aphasia, CVA, type 2 diabetes presented to hospital after mechanical fall. According to her who was present in the room she developed mechanical fall 4 days ago. Patient usually walks with walker after possible stroke around 6 months ago. Her stated that in January 2021 patient developed difficulties in speech and left sided weakness. He did not bring her to the emergency room or to primary care doctor. Patient started using a walker and became aphasic. According to her she understand questions and she can write answer. Sometimes she can tell yes or no. Today, he decided to bring the patient to ER because of her persistent pain over left hip area. In ER CT head was done and showed Ventriculomegaly in proportion to cerebral/cerebellar atrophy without intracranial hemorrhage, vascular territory infarct, mass or mass effect.. Left hip x-ray showed left femoral neck fracture Additional pelvic fractures cannot be ruled out,. Chest x-ray showed no acute cardiopulmonary disease. CT abdomen/pelvis showed Left hip fracture and degenerative changes. No additional fractures are identified. EKG shows normal sinus rhythm without acute ischemic changes. Patient does not have leukocytosis, CPK 847. COVID-19 test positive Problems (1) Femoral neck fracture Orthopedics team will proceed with surgery today Pain management Patient cleared for surgery today (2) Fall/deconditioning PT/OT (3) Type 2 diabetes mellitus Detemir 65 units twice daily Insulin sliding scale (4) Neglected elder Social work on board (5) Expressive aphasia Unclear etiology Differential diagnosis includes CV versus normal pressure hydrocephalus I talked to Dr. Sabillon he recommended neck MRI and MRI of the brain (6) COVID-19 Patient seems to be asymptomatic She is on room air Lungs clear on auscultation Continue to monitor labs according to COVID-19 protocol Patient will receive monoclonal antibody infusion DVT prophylaxis with heparin 5000 units twice daily VS,Fishbone, I+O VS, Fishbone, I+O Laboratory Tests 06/26/21 05:30 Vital Signs Date Time Temp Pulse Resp B/P (MAP) Pulse Ox O2 Delivery O2 Flow Rate FiO2 06/26/21 12:00 100 Nasal Cannula 2.0 06/26/21 11:30 97.6 80 16 126/74 (91) I&O- Last 24 Hours up to 6 AM 06/26/21 06:00 Intake Total 720 ml Output Total 500 ml Balance 220 ml ARACELI TORRES DO Jun 26, 2021 13:48
[2021-06-26] MEDS ORDERED: MIDAZOLAM INJ 2MG/2ML VIAL (J2250 PER 1MG) As Ordered ONE (16:46)
[2021-06-26] MEDS ORDERED: ROCURONIUM BROMIDE 50 MG/5 ML VIAL As Ordered ONE (16:46)
[2021-06-26] MEDS ORDERED: propofoL 200 MG/20 ML VIAL As Ordered ONE ×7 (16:46→23:43)
[2021-06-26] MEDS ORDERED: LIDOCAINE 2% 100MG/5ML SDV (FOR ANES.) As Ordered ONE (16:46)
[2021-06-26] MEDS ORDERED: fentaNYL 100 MCG/2 ML INJECTION (J3010) As Ordered ONE (16:47)
[2021-06-26] MEDS ORDERED: dexameTHASONE 4 MG/ML 1ML VIAL (J1100 PER 1MG) As Ordered ONE (16:47)
[2021-06-26] MEDS ORDERED: ONDANSETRON 4MG/2ML VIAL As Ordered ONE (16:47)
[2021-06-26] MEDS: DEXTROSE 50% 50 ML SYRINGE IV PRN (17:04)
[2021-06-26] MEDS ORDERED: VANCOMYCIN 1000MG/20ML VIAL As Ordered ONE (17:08)
[2021-06-26] MEDS ORDERED: ceFAZolin 1GM VIAL (J0690 PER 500MG) As Ordered ONE (17:08)
[2021-06-26] MEDS ORDERED: KETAMINE HCL 200 MG/20 ML VIAL As Ordered ONE (18:01)
[2021-06-26] MEDS ORDERED: PHENYLephrine 500MCG 5ML (100MCG/ML) SYRINGE As Ordered ONE ×2 (18:50→20:40)
[2021-06-26] MEDS ORDERED: DEXTROSE 50% 50 ML VIAL As Ordered ONE (19:37)
[2021-06-26] MEDS ORDERED: TRANEXAMIC ACID 100 MG/ML 10ML VIAL As Ordered ONE (19:56)
[2021-06-26] MEDS ORDERED: ceFAZolin 2 GM/D5W 50 ML IV BAG (J0690 PER 500MG) As Ordered ONE ×2 (19:56→22:51)
[2021-06-26] MEDS ORDERED: LIDOCAINE 2% W/EPINEPHRINE 20ML VIAL **PRES FREE As Ordered ONE (20:26)
[2021-06-26] MEDS ORDERED: PHENYLEPHRINE 10MG/ML 1ML VIAL (J2370 PER 1) As Ordered ONE (21:21)
[2021-06-26] MEDS ORDERED: BUPIVACAINE LIPOSOME/PF 1.3% 20ML VIAL (13.3MG/ML)(EXPAREL)(C9290 PER1MG) As Ordered ONE (22:34)
[2021-06-26] MEDS ORDERED: BUPIVACAINE HCL 0.25% 10ML VIAL As Ordered ONE (22:34)
[2021-06-27] VITALS (13 sets, daily range): BP systolic 78–113; BP diastolic 46–67; O2SAT 94–95
[2021-06-27] MEDS ORDERED: NS 500 ML IV ONE (02:05)
[2021-06-27] MEDS: D5W/0.45% SODIUM CHLORIDE 1,000 ML IV SCH ×2 (02:27→09:33)
[2021-06-27] MEDS: HEPARIN SOD (PORCINE) 5000UNITS/ML 1ML VIAL/SYRINGE SC SCH ×3 (02:27→21:55)
[2021-06-27] MEDS: ATORVASTATIN 20 MG TAB PO SCH ×2 (02:27→21:54)
--- NOTE | 2021-06-27 05:55 | CR ---
CONSULTATION DATE: 06/25/2021 CONSULTING SERVICE: Orthopedic Surgery CONSULTING PHYSICIAN: PAOLA CRABTREE MD HISTORY OF PRESENT ILLNESS: This is a 61-year-old female with a left Garden Type 4 femoral neck fracture which is closed. Patient sustained a ground-level fall, reported to be on the June. Patient was brought to the [facility] Emergency Department by her for inability to bear weight on the left lower extremity. Orthopedic Surgery was consulted for further evaluation and treatment regarding her left hip pain and left hip fracture. PAST MEDICAL HISTORY: Stroke, aphasia. Please see internal medicine note for further details. PAST SURGICAL HISTORY: Please see internal medicine note for further details. ALLERGIES TO MEDICATIONS: Please see internal medicine note for further details. CURRENT MEDICATIONS: Please see internal medicine note for further details. REVIEW OF SYSTEMS: A 14 point review of systems is negative unless otherwise described in the HPI above. PHYSICAL EXAMINATION: Patient was alert and oriented to person, time and place. The left lower extremity was resting in a flexion, abducted and externally rotated position. However, she had no breaks in the skin. She had a positive log roll exam, tenderness with palpation of the left hip, 5/5 motor strength in the EHL, FHL, tibialis anterior, gastrocnemius and peroneal musculature. Sensation intact to light touch to the deep and superficial sural saphenous and tibial nerve distributions. She had a warm well-perfused foot, palpable dorsalis pedis and posterior tibial pulse. Radiographs were of poor quality but demonstrated a Type [address] left femoral neck fracture. CT scan confirmed the above diagnosis with a left femoral neck fracture Garden Type 4 with a completely displaced femoral neck. IMPRESSION: A 66-year-old female with a left femoral neck fracture Garden Type 4. PLAN: At this point in time, the patient had been optimized for surgery. She had a low-grade fever which kept her out of the OR yesterday, however today she has been optimized for surgery. She is COVID positive. We are taking the necessary precautions to perform a left hip hemiarthroplasty which will allow her to bear weight immediately after surgery to help mobilize the patient and help with pain control. Patient is going for the aforementioned surgery of the left hip hemiarthroplasty this evening on the June.
--- NOTE | 2021-06-27 07:13 | RO ---
OPERATIVE NOTE DATE OF OPERATION: 06/26/2021 TIME: 8 p.m. PREOPERATIVE DIAGNOSIS: Left femoral neck fracture and chronic greater trochanteric fracture and callus. POSTOPERATIVE DIAGNOSIS: Left femoral neck fracture and chronic greater trochanteric fracture and callus. NAME OF OPERATION: Left hip hemiarthroplasty with greater trochanteric open reduction and internal fixation. SURGEON: Davonte Rush MD PARKING RAMP ATTENDANT: None. SUPERVISING ATTENDING: Davonte Rush MD FINDINGS: The patient had a type IV left femoral neck fracture, significant displacement and an intraoperative propagation of a greater trochanter fracture. INDICATIONS: This was a 61-year-old female who sustained a ground-level fall in her home residence. She sustained the aforementioned injury. She has a medical history of expressive aphasia, CVA, type 2 diabetes, is indicated for the aforementioned procedure in order to encourage painless transfers and to allow her minimal ambulation with use of a walker which is her previous baseline. ANESTHESIA: GETA. TOURNIQUET TIME: None used. ESTIMATED BLOOD LOSS: 750 mL. IV FLUIDS: Please see anesthesia report. IV ANTIBIOTICS: Please see anesthesia report. IMPLANTS: DePuy [employer]. CULTURES: None. SPECIMENS: None. DESCRIPTION OF PROCEDURE: The patient was met in the preoperative holding area where the patient's operative extremity was signed, the patient's consent was confirmed to be correct, and the patient's identity was confirmed to be correct. The patient was then transported to the operating theater where she was placed in the lateral decubitus position using a pegboard table. A safety strap secured the patient to the bed. All bony prominences were well padded. The contralateral lower extremity had an SCD placed. A timeout was called which confirmed the correct patient, correct operative extremity and correct consent. All staff were in agreement. The patient was then draped in the usual sterile fashion. We began the procedure by using a direct lateral approach for the hip hemiarthroplasty, incised the skin sharply and used meticulous hemostasis to make my way to the iliotibial band. This was incised sharp and divided and retracted using a Charnley retractor. This exposed the proximal aspect of the vastus lateralis as well as the anterior 2/3 of the gluteus medius insertion of the greater trochanter. There appeared to be small fracture. However, this was very minimal and likely could have been chronic fracture. I then made my way to the femoral neck fracture by elevating the anterior 1/3 of the gluteus medius and the anterior 1/3 of the vastus lateralis along the femoral neck using electrocautery. When I made my way to the femoral neck, I whipstitched the nondividing capsule in order to reflect the capsule away from the acetabulum. We identified the fracture. I then identified the fracture. I then made a femoral neck cut using the shallow point as a reference and the lesser trochanter as a second reference and my cut just 12 mm proximal to the lesser trochanter. Once I made my cut using an osteotome to complete my cut and remove the wafer of bone which was excised femoral neck, I then used a corkscrew drill in order to gain purchase of the femoral head which was then removed, incised with a 49 mm head. This was trialed and this obtained appropriate suction seal at this point in time and then placed the patient's left leg into the bag on the contralateral side of the table. This was flexion, adduction and external rotation position. This exposed the proximal femur where we began sequentially broaching from 1 to 3 during trialing of the #3 broach, -3 femoral neck and 49 mm femoral head. There was propagation of the previous chronic greater trochanter fracture. At this point in time, we elected to proceed with additional fixation in order to fix the greater trochanter fracture. We kept the 3 broach in position, placed two large cables about the patient's femoral neck and three additional cables to secure the hook plate which now secured our greater trochanter avulsion fracture. We then completed our broaching. We performed a reduction with trials in place to include those mentioned before and the patient had supraphysiologic range of motion and stability throughout. We removed the trials. I then exposed the proximal femur, placed a #3 cement restrictor 2 cm distal to where the planned placement of the femoral implant would be, prepared the cement, used fourth generation cement technique in order to fill the canal, placed our femoral implant which is a size #3 into position and held it until the glue dries. I then placed a -3 femoral neck spacer within the femoral head which was measured to be 49 mm and unipolar. The patient's hip was then reduced. We then tested the range of motion which was supraphysiologic. The patient had no instability. There was supraphysiologic range of motion. There was no shuck. The patient had near restored limb length. We then placed one liter of Betadine solution within the wound. This was then removed with normal saline. I placed one gram of vancomycin in direct contact with the femoral implant. I then closed the capsule. I then closed the gluteus medius and vastus lateralis using a Stratafix suture size 0. I then copiously irrigated. Then I closed the IT band over the greater trochanter plate using #2 braided polyethylene suture as well as Stratafix. I then closed the skin using 2-0 Vicryl to close the lateral incision using metallic brandi. The patient was then extubated without complication and transferred to the postanesthesia care unit. At this point in time, I would like to protect the patient's weightbearing for 6-8 weeks for weightbearing as tolerated with use of a walker to the left lower extremity. I do encourage the patient to walk around. However, I would protect weightbearing to the patient's left lower extremity given the greater trochanter fracture. The patient otherwise will continue range of motion and strengthening of the left lower extremity per the physical therapy rehabilitative protocol. She is a minimal ambulator but whatever she is able to achieve would be the best. The patient can follow up with Dr. Cox on the June, for postoperative wound check. He will follow up with myself in the [facility] on the July, for a six week postoperative followup. The patient's care will be transferred to the internal medicine team and we recommend 81 mg of aspirin daily or the equivalent for 30 days or a similar DVT chemoprophylaxis.
[2021-06-27 08:00] LABS: INR 1.1; PROTHROMBIN TIME 14.6 SECONDS (12.7-14.5)
[2021-06-27 08:01] LABS: PARTIAL THROMBOPLASTIN TIME 49.9 SECONDS (25.9-37.0)
[2021-06-27 08:02] LABS: HEMATOCRIT 25.9 % (36.0-47.0); LYMPH # 1.6 10^3/uL (1.5-5.0); LYMPH % 23.3 % (24.0-44.0); MEAN CORPUSCULAR HEMOGLOBIN 29.9 pg (27.0-33.0); MEAN CORPUSCULAR VOLUME 88.1 fl (80.0-96.0); MONO # 0.6 10^3/uL (0.0-0.8); MONO % 8.3 % (2.0-8.0); NEUTROPHILS # 4.8 10^3/uL (1.5-8.5); PLATELET COUNT, AUTOMATED 141 10^3/uL (150-450); RED BLOOD COUNT 2.94 10^6/uL (4.00-5.40)
[2021-06-27 08:06] LABS: HEMOGLOBIN 8.8 g/dl (12.0-15.5)
[2021-06-27 08:24] LABS: ALT/SGPT 27 U/L (12-78); BILIRUBIN,DIRECT 0.2 MG/DL (0.0-0.2); BILIRUBIN,TOTAL 0.4 MG/DL (0.2-1.0); BLOOD UREA NITROGEN 20 MG/DL (7-18); CALCIUM LEVEL 7.7 MG/DL (8.8-10.2); CARBON DIOXIDE LEVEL 25 MEQ/L (21-32); CHLORIDE LEVEL 109 MEQ/L (98-107); CPK CREATINE PHOSPHOKINASE 1771 U/L (26-192); CREATININE FOR GFR 0.75 MG/DL (0.55-1.30); FERRITIN 1389 NG/ML (8-252); GLOMERULAR FILTRATION RATE > 60.0 (>45); GLUCOSE, FASTING 172 MG/DL (70-100); LDH LACTATE DEHYDROGENASE 340 U/L (84-246); NT-PRO BNP 92 PG/ML (<125); POTASSIUM SERUM 4.5 MEQ/L (3.5-5.1); SODIUM LEVEL 140 MEQ/L (136-145); TOTAL PROTEIN 5.1 GM/DL (6.4-8.2); TROPONIN I 0.06 NG/ML (< 0.10)
--- NOTE | 2021-06-27 08:29 | REP ---
INDICATION: SURGERY-NOT NEEDED RIGHT NOW, WILL CALL WHEN READY. COMPARISON: 06/25/2021 a pre operative exam TECHNIQUE: A single AP view of the pelvis was performed. FINDINGS: Since the last examination a total left hip prosthesis has been placed. The femoral and acetabular components appear well seated and well approximated. The alignment is near anatomical. IMPRESSION: Status post THR as described <Electronically signed by Serjio Porter > 06/27/21 [id number]
[2021-06-27] MEDS: lisinopriL 5 MG TAB PO SCH (09:00)
[2021-06-27] MEDS: ASPIRIN 81MG ENTERIC TABLET PO SCH (09:29)
[2021-06-27] MEDS: LEVEMIR (INSULIN DETEMIR) 1 UNITS/0.01ML SC SCH ×2 (09:29→21:00)
[2021-06-27] MEDS: LORATADINE 10 MG TAB PO SCH (09:29)
[2021-06-27] MEDS: HumaLOG INSULIN (NovoLOG) PER UNIT SC SCH ×4 (09:30→21:00)
--- NOTE | 2021-06-27 14:59 | IPNPDOC ---
Text Note Date of Service The patient was seen on 06/27/21. NOTE Subjective: No new acute events overnight. Patient stated that she feels better and she does not have any pain. Objective: GENERAL APPEARANCE: Aphasic female HEENT: no scleral icterus, no JVD, EOMI CARDIOVASCULAR: S1S2 LUNGS: Diminished lung sounds bilaterally ABDOMEN: soft & not tender w palpation MUSCULOSKELETAL: no cyanosis, no swelling, dressing over left hip INTEGUMENT: no generalized pallor NEUROLOGICAL: cranial nerve function from 2-12 intact, follows commands Assessment/Plan Patient is 61 years old female with past medical history of expressive aphasia, CVA, type 2 diabetes presented to hospital after mechanical fall. According to her who was present in the room she developed mechanical fall 4 days ago. Patient usually walks with walker after possible stroke around 6 months ago. Her stated that in January 2021 patient developed difficulties in speech and left sided weakness. He did not bring her to the emergency room or to primary care doctor. Patient started using a walker and became aphasic. According to her she understand questions and she can write answer. Sometimes she can tell yes or no. Today, he decided to bring the patient to ER because of her persistent pain over left hip area. In ER CT head was done and showed Ventriculomegaly in proportion to cerebral/cerebellar atrophy without intracranial hemorrhage, vascular territory infarct, mass or mass effect.. Left hip x-ray showed left femoral neck fracture Additional pelvic fractures cannot be ruled out,. Chest x-ray showed no acute cardiopulmonary disease. CT abdomen/pelvis showed Left hip fracture and degenerative changes. No additional fractures are identified. EKG shows normal sinus rhythm without acute ischemic changes. Patient does not have leukocytosis, CPK 847. COVID-19 test positive Problems (1) Femoral neck fracture Orthopedics team performed left hip hemiarthroplasty with greater trochanteric open reduction and internal fixation. Day 1 Ortho team recommended weightbearing for 6-8 weeks for weightbearing as tolerated with use of a walker to the left lower extremity, protect weightbearing to the patient's left lower extremity given the greater trochanter fracture. The patient otherwise will continue range of motion and strengthening of the left lower extremity per the physical therapy rehabilitative protocol. Pain management ARU screen (2) Fall/deconditioning PT/OT (3) Type 2 diabetes mellitus Detemir 65 units twice daily Insulin sliding scale Glucose level under control (4) Neglected elder Social work on board (5) Expressive aphasia Unclear etiology Differential diagnosis includes CV versus normal pressure hydrocephalus I talked to Dr. Sabillon he recommended neck MRI and MRI of the brain, pending (6) COVID-19 Patient seems to be asymptomatic She is on room air Lungs clear on auscultation Continue to monitor labs according to COVID-19 protocol Patient received monoclonal antibody infusion yesterday DVT prophylaxis with heparin 5000 units twice daily VS,Fishbone, I+O VS, Fishbone, I+O Laboratory Tests 06/27/21 06:36 Vital Signs Date Time Temp Pulse Resp B/P (MAP) Pulse Ox O2 Delivery O2 Flow Rate FiO2 06/27/21 10:00 98.2 92 16 98/53 (68) 98 Room Air 06/27/21 01:15 12.0 I&O- Last 24 Hours up to 6 AM 06/27/21 05:59 Intake Total 3360 ml Output Total 1560 ml Balance 1800 ml ARACELI TORRES DO Jun 27, 2021 14:59
[2021-06-27] MEDS: ACETAMINOPHEN TAB 650MG DOSE (2X325MG) PO PRN (18:03)
[2021-06-27] MEDS: NS 1,000 ML IV SCH (20:52)
--- NOTE | 2021-06-27 21:38 | REPVR ---
PROCEDURE INFORMATION: Exam: MR Head Without Contrast Exam date and time: 06/27/2021 8:19 PM Age: 61 years old Clinical indication: Other: Ventriculomegaly TECHNIQUE: Imaging protocol: MR of the head without contrast. COMPARISON: CT Head without contrast 06/25/2021 10:46 AM FINDINGS: Brain: There is marked atrophy most focally in the anterior temporal lobes and frontal lobes. There is increased T2/FLAIR signal within the periventricular white matter most focally in the frontal lobes. There is volume loss in the brainstem as well. Cerebral ventricles: There is enlargement of the lateral and 3rd ventricles. Bones/joints: Unremarkable. Paranasal sinuses: There is minimal mucoperiosteal reaction in the maxillary sinuses. Mastoid air cells: Normal as visualized. No mastoid effusion. Orbital cavity: Unremarkable. Soft tissues: Unremarkable. IMPRESSION: 1. Marked diffuse atrophy with ex vacuo dilatation of the ventricular system. 2. No acute intracranial abnormality. Electronically signed by: Yonathan Martino On 06/27/2021 21:38:04 PM
--- NOTE | 2021-06-27 21:44 | REPVR ---
PROCEDURE INFORMATION: Exam: MR Cervical Spine Without Contrast Exam date and time: 06/27/2021 8:19 PM Age: 61 years old Clinical indication: Other: Ventriculomegaly TECHNIQUE: Imaging protocol: Multiplanar magnetic resonance images of the cervical spine without contrast. COMPARISON: CT Spine,cervical w/o contrast 06/25/2021 10:46 AM FINDINGS: Vertebrae: Unremarkable. Disc spaces: There is loss of T2 signal within intervertebral disc spaces, related to degenerative disc disease. Spinal cord: Normal signal. No cord compression. C2-C3: No significant disc disease. No significant spinal stenosis. C3-C4: No significant disc disease. No significant spinal stenosis. C4-C5: No significant disc disease. No significant spinal stenosis. C5-C6: No significant disc disease. No significant spinal stenosis. C6-C7: No significant disc disease. No significant spinal stenosis. C7-T1: No significant disc disease. No significant spinal stenosis. Soft tissues: Unremarkable. Vertebral arteries: Expected flow voids in the vertebral arteries. IMPRESSION: No disc herniation or central stenosis. Electronically signed by: Yonathan Martino On 06/27/2021 21:43:54 PM
[2021-06-28] VITALS (13 sets, daily range): BP systolic 88–109; BP diastolic 50–73; O2SAT 94–97
[2021-06-28] MEDS: ACETAMINOPHEN TAB 650MG DOSE (2X325MG) PO PRN (02:06)
[2021-06-28] MEDS: lisinopriL 5 MG TAB PO SCH (05:11)
[2021-06-28 06:24] LABS: EOS % 0.2 % (0.0-3.0); HEMATOCRIT 22.6 % (36.0-47.0); HEMOGLOBIN 7.8 g/dl (12.0-15.5); LYMPH # 2.7 10^3/uL (1.5-5.0); LYMPH % 30.4 % (24.0-44.0); MEAN CORPUSCULAR HEMOGLOBIN 29.9 pg (27.0-33.0); MEAN CORPUSCULAR HGB CONC 34.5 g/dl (32.0-36.5); MEAN CORPUSCULAR VOLUME 86.6 fl (80.0-96.0); MONO # 0.8 10^3/uL (0.0-0.8); NEUTROPHILS # 5.3 10^3/uL (1.5-8.5); NEUTROPHILS % 60.1 % (36.0-66.0); PLATELET COUNT, AUTOMATED 142 10^3/uL (150-450); RED BLOOD COUNT 2.61 10^6/uL (4.00-5.40); WHITE BLOOD COUNT 8.9 10^3/uL (4.0-10.0)
[2021-06-28 06:52] LABS: BLOOD UREA NITROGEN 25 MG/DL (7-18); CALCIUM LEVEL 8.2 MG/DL (8.8-10.2); CARBON DIOXIDE LEVEL 26 MEQ/L (21-32); CHLORIDE LEVEL 109 MEQ/L (98-107); CREATININE FOR GFR 0.97 MG/DL (0.55-1.30); GLOMERULAR FILTRATION RATE > 60.0 (>45); GLUCOSE, FASTING 49 MG/DL (70-100); POTASSIUM SERUM 3.9 MEQ/L (3.5-5.1); SODIUM LEVEL 141 MEQ/L (136-145)
[2021-06-28] MEDS: HumaLOG INSULIN (NovoLOG) PER UNIT SC SCH ×4 (07:30→21:00)
[2021-06-28] MEDS: LEVEMIR (INSULIN DETEMIR) 1 UNITS/0.01ML SC SCH (09:00)
[2021-06-28] MEDS: LORATADINE 10 MG TAB PO SCH (09:33)
[2021-06-28] MEDS: ASPIRIN 81MG ENTERIC TABLET PO SCH (09:33)
[2021-06-28] MEDS: HEPARIN SOD (PORCINE) 5000UNITS/ML 1ML VIAL/SYRINGE SC SCH ×2 (09:33→21:42)
--- NOTE | 2021-06-28 14:53 | IPNPDOC ---
Text Note Date of Service The patient was seen on 06/28/21. NOTE Subjective: No new acute events overnight. Patient seems slightly more confused today. Objective: GENERAL APPEARANCE: Aphasic female HEENT: no scleral icterus, no JVD, EOMI CARDIOVASCULAR: S1S2 LUNGS: Diminished lung sounds bilaterally ABDOMEN: soft & not tender w palpation MUSCULOSKELETAL: no cyanosis, no swelling, dressing over left hip INTEGUMENT: no generalized pallor NEUROLOGICAL: cranial nerve function from 2-12 intact, follows commands Assessment/Plan Patient is 61 years old female with past medical history of expressive aphasia, CVA, type 2 diabetes presented to hospital after mechanical fall. According to her who was present in the room she developed mechanical fall 4 days ago. Patient usually walks with walker after possible stroke around 6 months ago. Her stated that in January 2021 patient developed difficulties in speech and left sided weakness. He did not bring her to the emergency room or to primary care doctor. Patient started using a walker and became aphasic. According to her she understand questions and she can write answer. Sometimes she can tell yes or no. Today, he decided to bring the patient to ER because of her persistent pain over left hip area. In ER CT head was done and showed Ventriculomegaly in proportion to cerebral/cerebellar atrophy without intracranial hemorrhage, vascular territory infarct, mass or mass effect.. Left hip x-ray showed left femoral neck fracture Additional pelvic fractures cannot be ruled out,. Chest x-ray showed no acute cardiopulmonary disease. CT abdomen/pelvis showed Left hip fracture and degenerative changes. No additional fractures are identified. EKG shows normal sinus rhythm without acute ischemic changes. Patient does not have leukocytosis, CPK 847. COVID-19 test positive Problems (1) Femoral neck fracture Orthopedics team performed left hip hemiarthroplasty with greater trochanteric open reduction and internal fixation. Day 1 Ortho team recommended weightbearing for 6-8 weeks for weightbearing as tolerated with use of a walker to the left lower extremity, protect weightbearing to the patient's left lower extremity given the greater trochanter fracture. The patient otherwise will continue range of motion and strengthening of the left lower extremity per the physical therapy rehabilitative protocol. Pain management ARU screen (2) Fall/deconditioning PT/OT (3) Type 2 diabetes mellitus Detemir 65 units twice daily Insulin sliding scale Glucose level under control (4) Neglected elder Social work on board (5) Expressive aphasia Unclear etiology Differential diagnosis includes CV versus normal pressure hydrocephalus I talked to Dr. Sabillon he recommended neck MRI and MRI of the brain, pending (6) COVID-19 Patient seems to be asymptomatic She is on room air Lungs clear on auscultation Continue to monitor labs according to COVID-19 protocol Patient received monoclonal antibody infusion yesterday DVT prophylaxis with heparin 5000 units twice daily VS,Fishbone, I+O VS, Fishbone, I+O Laboratory Tests 06/28/21 06:09 Vital Signs Date Time Temp Pulse Resp B/P (MAP) Pulse Ox O2 Delivery O2 Flow Rate FiO2 06/28/21 14:37 99.5 102 18 104/55 96 Room Air 06/27/21 01:15 12.0 I&O- Last 24 Hours up to 6 AM 06/28/21 06:00 Intake Total 110 ml Output Total 475 ml Balance -365 ml ARACELI TORRES DO Jun 28, 2021 14:53
[2021-06-28] MEDS ORDERED: NS 1,000 ML IV ONE (15:50)
[2021-06-28] MEDS ORDERED: LEVEMIR (INSULIN DETEMIR) 1 UNITS/0.01ML SC SCH (21:00)
[2021-06-28] MEDS: ATORVASTATIN 20 MG TAB PO SCH (21:39)
[2021-06-29] VITALS (10 sets, daily range): BP systolic 102–116; BP diastolic 56–67; O2SAT 91–95
[2021-06-29] MEDS: HumaLOG INSULIN (NovoLOG) PER UNIT SC SCH ×4 (07:30→20:13)
[2021-06-29 07:34] LABS: BASO % 0.1 % (0.0-1.0); EOS # 0.1 10^3/uL (0.0-0.5); EOS % 0.9 % (0.0-3.0); HEMATOCRIT 25.3 % (36.0-47.0); HEMOGLOBIN 8.6 g/dl (12.0-15.5); LYMPH # 2.1 10^3/uL (1.5-5.0); LYMPH % 23.3 % (24.0-44.0); MEAN CORPUSCULAR VOLUME 88.2 fl (80.0-96.0); MONO # 0.7 10^3/uL (0.0-0.8); NEUTROPHILS # 6.2 10^3/uL (1.5-8.5); NEUTROPHILS % 67.4 % (36.0-66.0); PLATELET COUNT, AUTOMATED 155 10^3/uL (150-450); RED BLOOD COUNT 2.87 10^6/uL (4.00-5.40); WHITE BLOOD COUNT 9.2 10^3/uL (4.0-10.0)
[2021-06-29 07:53] LABS: INR 1.04
[2021-06-29 07:55] LABS: PARTIAL THROMBOPLASTIN TIME 74.7 SECONDS (25.9-37.0)
[2021-06-29 08:17] LABS: ALBUMIN 1.7 GM/DL (3.2-5.2); ALT/SGPT 28 U/L (12-78); BILIRUBIN,DIRECT 0.2 MG/DL (0.0-0.2); BILIRUBIN,TOTAL 0.5 MG/DL (0.2-1.0); BLOOD UREA NITROGEN 21 MG/DL (7-18); CALCIUM LEVEL 8.2 MG/DL (8.8-10.2); CARBON DIOXIDE LEVEL 26 MEQ/L (21-32); CHLORIDE LEVEL 110 MEQ/L (98-107); CPK CREATINE PHOSPHOKINASE 1267 U/L (26-192); CREATININE FOR GFR 0.62 MG/DL (0.55-1.30); FERRITIN 1210 NG/ML (8-252); GLOMERULAR FILTRATION RATE > 60.0 (>45); GLUCOSE, FASTING 75 MG/DL (70-100); LDH LACTATE DEHYDROGENASE 297 U/L (84-246); NT-PRO BNP 78 PG/ML (<125); POTASSIUM SERUM 3.7 MEQ/L (3.5-5.1); SODIUM LEVEL 141 MEQ/L (136-145); TOTAL PROTEIN 5.5 GM/DL (6.4-8.2); TROPONIN I 0.04 NG/ML (< 0.10)
[2021-06-29] MEDS: LORATADINE 10 MG TAB PO SCH (08:49)
[2021-06-29] MEDS: ASPIRIN 81MG ENTERIC TABLET PO SCH (08:49)
[2021-06-29] MEDS: HEPARIN SOD (PORCINE) 5000UNITS/ML 1ML VIAL/SYRINGE SC SCH ×2 (08:49→20:26)
[2021-06-29] MEDS: LEVEMIR (INSULIN DETEMIR) 1 UNITS/0.01ML SC SCH (08:53)
--- NOTE | 2021-06-29 14:27 | IPNPDOC ---
Text Note Date of Service The patient was seen on 06/29/21. NOTE Subjective: No new acute events overnight. Patient denied any chest pain, p alpitations, abdominal pain. Objective: GENERAL APPEARANCE: Aphasic female HEENT: no scleral icterus, no JVD, EOMI CARDIOVASCULAR: S1S2 LUNGS: Diminished lung sounds bilaterally ABDOMEN: soft & not tender w palpation MUSCULOSKELETAL: no cyanosis, no swelling, dressing over left hip INTEGUMENT: no generalized pallor NEUROLOGICAL: cranial nerve function from 2-12 intact, follows commands Assessment/Plan Patient is 61 years old female with past medical history of expressive aphasia, CVA, type 2 diabetes presented to hospital after mechanical fall. According to her who was present in the room she developed mechanical fall 4 days ago. Patient usually walks with walker after possible stroke around 6 months ago. Her stated that in January 2021 patient developed difficulties in speech and left sided weakness. He did not bring her to the emergency room or to primary care doctor. Patient started using a walker and became aphasic. According to her she understand questions and she can write answer. Sometimes she can tell yes or no. Today, he decided to bring the patient to ER because of her persistent pain over left hip area. In ER CT head was done and showed Ventriculomegaly in proportion to cerebral/cerebellar atrophy without intracranial hemorrhage, vascular territory infarct, mass or mass effect.. Left hip x-ray showed left femoral neck fracture Additional pelvic fractures cannot be ruled out,. Chest x-ray showed no acute cardiopulmonary disease. CT abdomen/pelvis showed Left hip fracture and degenerative changes. No additional fractures are identified. EKG shows normal sinus rhythm without acute ischemic changes. Patient does not have leukocytosis, CPK 847. COVID-19 test positive Problems (1) Femoral neck fracture Orthopedics team performed left hip hemiarthroplasty with greater trochanteric open reduction and internal fixation. Day 2 Ortho team recommended weightbearing for 6-8 weeks for weightbearing as tolerated with use of a walker to the left lower extremity, protect weightbearing to the patient's left lower extremity given the greater trochanter fracture. The patient otherwise will continue range of motion and strengthening of the left lower extremity per the physical therapy rehabilitative protocol. Pain management ARU screen (2) Fall/deconditioning PT/OT (3) Type 2 diabetes mellitus Detemir twice daily Insulin sliding scale Glucose level under control (4) Neglected elder Social work on board (5) Expressive aphasia MRI showed Marked diffuse atrophy with ex vacuo dilatation of the ventricular system. I talked to Dr. Sabillon he diagnosed her with severe frontotemporal dementia He recommended follow-up with him after discharge (6) COVID-19 Patient seems to be asymptomatic She is on room air Lungs clear on auscultation Continue to monitor labs according to COVID-19 protocol Patient received monoclonal antibody infusion Normocytic anemia Most likely secondary to previous surgery for hip repair Patient received 1 unit of blood transfusion yesterday. Hemoglobin stable Continue to monitor DVT prophylaxis with heparin 5000 units twice daily VS,Fishbone, I+O VS, Fishbone, I+O Laboratory Tests 06/29/21 06:41 06/29/21 06:42 Vital Signs Date Time Temp Pulse Resp B/P (MAP) Pulse Ox O2 Delivery O2 Flow Rate FiO2 06/29/21 12:00 95 Room Air 06/29/21 04:00 99.0 95 17 113/65 (81) 06/27/21 01:15 12.0 I&O- Last 24 Hours up to 6 AM 06/29/21 06:00 Intake Total 2480 ml Output Total 600 ml Balance 1880 ml ARACELI TORRES DO Jun 29, 2021 14:27
[2021-06-29] MEDS: ATORVASTATIN 20 MG TAB PO SCH (20:26)
[2021-06-29] MEDS ORDERED: LEVEMIR (INSULIN DETEMIR) 1 UNITS/0.01ML SC SCH (21:00)
[2021-06-30] VITALS (13 sets, daily range): BP systolic 98–119; BP diastolic 55–73; O2SAT 93–95
[2021-06-30] MEDS: HumaLOG INSULIN (NovoLOG) PER UNIT SC SCH ×4 (07:30→21:00)
[2021-06-30 07:39] LABS: BASO % 0.1 % (0.0-1.0); EOS # 0.1 10^3/uL (0.0-0.5); EOS % 1.5 % (0.0-3.0); HEMATOCRIT 22.5 % (36.0-47.0); HEMOGLOBIN 7.5 g/dl (12.0-15.5); LYMPH % 21.1 % (24.0-44.0); MEAN CORPUSCULAR HEMOGLOBIN 29.2 pg (27.0-33.0); MEAN CORPUSCULAR HGB CONC 33.3 g/dl (32.0-36.5); MEAN CORPUSCULAR VOLUME 87.5 fl (80.0-96.0); MONO # 0.9 10^3/uL (0.0-0.8); MONO % 9.7 % (2.0-8.0); NEUTROPHILS # 6.5 10^3/uL (1.5-8.5); PLATELET COUNT, AUTOMATED 222 10^3/uL (150-450); RED BLOOD COUNT 2.57 10^6/uL (4.00-5.40); WHITE BLOOD COUNT 9.6 10^3/uL (4.0-10.0)
[2021-06-30 07:58] LABS: BLOOD UREA NITROGEN 17 MG/DL (7-18); CALCIUM LEVEL 8.1 MG/DL (8.8-10.2); CARBON DIOXIDE LEVEL 27 MEQ/L (21-32); CHLORIDE LEVEL 109 MEQ/L (98-107); GLOMERULAR FILTRATION RATE > 60.0 (>45); GLUCOSE, FASTING 42 MG/DL (70-100); POTASSIUM SERUM 3.6 MEQ/L (3.5-5.1); SODIUM LEVEL 142 MEQ/L (136-145)
[2021-06-30] MEDS: LEVEMIR (INSULIN DETEMIR) 1 UNITS/0.01ML SC SCH ×2 (09:00→21:42)
[2021-06-30] MEDS: ASPIRIN 81MG ENTERIC TABLET PO SCH (09:24)
[2021-06-30] MEDS: HEPARIN SOD (PORCINE) 5000UNITS/ML 1ML VIAL/SYRINGE SC SCH ×2 (09:24→21:26)
[2021-06-30] MEDS: LORATADINE 10 MG TAB PO SCH (09:24)
--- NOTE | 2021-06-30 12:53 | IPNPDOC ---
Text Note Date of Service The patient was seen on 06/30/21. NOTE Subjective: No new acute events overnight. Patient denied any chest pain, p alpitations, abdominal pain. She has one episode of hypoglycemia in the morning Objective: GENERAL APPEARANCE: Aphasic female HEENT: no scleral icterus, no JVD, EOMI CARDIOVASCULAR: S1S2 LUNGS: Diminished lung sounds bilaterally ABDOMEN: soft & not tender w palpation MUSCULOSKELETAL: no cyanosis, no swelling, dressing over left hip INTEGUMENT: no generalized pallor NEUROLOGICAL: cranial nerve function from 2-12 intact, follows commands Assessment/Plan Patient is 61 years old female with past medical history of expressive aphasia, CVA, type 2 diabetes presented to hospital after mechanical fall. According to her who was present in the room she developed mechanical fall 4 days ag o. Patient usually walks with walker after possible stroke around 6 months ago. Her stated that in January 2021 patient developed difficulties in speech and left sided weakness. He did not bring her to the emergency room or to primary care doctor. Patient started using a walker and became aphasic. According to her she understand questions and she can write answer. Sometimes she can tell yes or no. Today, he decided to bring the patient to ER because of her persistent pain over left hip area. In ER CT head was done and showed Ventriculomegaly in proportion to cerebral/cerebellar atrophy without intracranial hemorrhage, vascular territory infarct, mass or mass effect.. Left hip x-ray showed left femoral neck fracture Additional pelvic fractures cannot be ruled out,. Chest x-ray showed no acute cardiopulmonary disease. CT abdomen/pelvis showed Left hip fracture and degenerative changes. No additional fractures are identified. EKG shows normal sinus rhythm without acute ischemic changes. Patient does not have leukocytosis, CPK 847. COVID-19 test positive Problems (1) Femoral neck fracture Orthopedics team performed left hip hemiarthroplasty with greater trochanteric open reduction and internal fixation. Day 2 Ortho team recommended weightbearing for 6-8 weeks for weightbearing as tolerated with use of a walker to the left lower extremity, protect weigh tbearing to the patient's left lower extremity given the greater trochanter fracture. The patient otherwise will continue range of motion and strengthening of the left lower extremity per the physical therapy rehabilitative protocol. Pain management ARU screen (2) Fall/deconditioning PT/OT (3) Type 2 diabetes mellitus I decreased the dose of night insulin to 10 units Insulin sliding scale (4) Neglected elder Social work on board (5) Expressive aphasia/frontotemporal dementia MRI showed Marked diffuse atrophy with ex vacuo dilatation of the ventricular system. I talked to Dr. Sabillon he diagnosed her with severe frontotemporal dementia He recommended follow-up with him after discharge (6) COVID-19 Patient seems to be asymptomatic She is on room air Lungs clear on auscultation Continue to monitor labs according to COVID-19 protocol Patient received monoclonal antibody infusion Normocytic anemia Most likely secondary to previous surgery for hip repair Patient received 1 unit of blood transfusion yesterday. Hemoglobin 7.5 today. There is concern for stress ulcer. I will check stool for occult blood. PPI IV twice daily. I will transfuse 2 units of blood Continue to monitor VS,Fishbone, I+O VS, Fishbone, I+O Laboratory Tests 06/30/21 06:57 Vital Signs Date Time Temp Pulse Resp B/P (MAP) Pulse Ox O2 Delivery O2 Flow Rate FiO2 06/30/21 04:00 93 Room Air 06/30/21 04:00 97.6 91 20 102/73 (83) 06/27/21 01:15 12.0 I&O- Last 24 Hours up to 6 AM 06/30/21 06:00 Intake Total 240 ml Output Total 700 ml Balance -460 ml ARACELI TORRES DO Jun 30, 2021 12:53
[2021-06-30] MEDS: PANTOPRAZOLE 40MG VIAL (C9113 PER 1) IV SCH ×2 (14:58→21:25)
[2021-06-30] MEDS: ACETAMINOPHEN TAB 650MG DOSE (2X325MG) PO PRN ×2 (15:38→21:43)
[2021-06-30] MEDS: ATORVASTATIN 20 MG TAB PO SCH (21:26)
[2021-07-01] VITALS (8 sets, daily range): BP systolic 103–108; BP diastolic 58–74; O2SAT 93–96
[2021-07-01 07:25] LABS: BASO % 0.1 % (0.0-1.0); EOS # 0.4 10^3/uL (0.0-0.5); EOS % 3.9 % (0.0-3.0); LYMPH # 1.8 10^3/uL (1.5-5.0); LYMPH % 18.1 % (24.0-44.0); MEAN CORPUSCULAR HEMOGLOBIN 29.8 pg (27.0-33.0); MEAN CORPUSCULAR HGB CONC 34.6 g/dl (32.0-36.5); MEAN CORPUSCULAR VOLUME 86.2 fl (80.0-96.0); MONO # 0.8 10^3/uL (0.0-0.8); MONO % 8.4 % (2.0-8.0); NEUTROPHILS # 6.9 10^3/uL (1.5-8.5); NEUTROPHILS % 68.6 % (36.0-66.0); PLATELET COUNT, AUTOMATED 269 10^3/uL (150-450); RED BLOOD COUNT 3.25 10^6/uL (4.00-5.40)
[2021-07-01 07:33] LABS: INR 1.15; PROTHROMBIN TIME 15.2 SECONDS (12.7-14.5)
[2021-07-01 07:34] LABS: PARTIAL THROMBOPLASTIN TIME 45.2 SECONDS (25.9-37.0)
[2021-07-01 07:35] LABS: HEMOGLOBIN 9.7 g/dl (12.0-15.5)
[2021-07-01 07:47] LABS: ALBUMIN 1.4 GM/DL (3.2-5.2); ALT/SGPT 26 U/L (12-78); BILIRUBIN,DIRECT 0.3 MG/DL (0.0-0.2); BILIRUBIN,TOTAL 0.9 MG/DL (0.2-1.0); BLOOD UREA NITROGEN 19 MG/DL (7-18); CALCIUM LEVEL 7.9 MG/DL (8.8-10.2); CARBON DIOXIDE LEVEL 28 MEQ/L (21-32); CHLORIDE LEVEL 109 MEQ/L (98-107); CPK CREATINE PHOSPHOKINASE 809 U/L (26-192); CREATININE FOR GFR 0.72 MG/DL (0.55-1.30); FERRITIN 1078 NG/ML (8-252); GLOMERULAR FILTRATION RATE > 60.0 (>45); GLUCOSE, FASTING 188 MG/DL (70-100); LDH LACTATE DEHYDROGENASE 276 U/L (84-246); NT-PRO BNP 96 PG/ML (<125); POTASSIUM SERUM 3.9 MEQ/L (3.5-5.1); SODIUM LEVEL 141 MEQ/L (136-145); TOTAL PROTEIN 5.5 GM/DL (6.4-8.2); TROPONIN I 0.03 NG/ML (< 0.10)
[2021-07-01] MEDS: HEPARIN SOD (PORCINE) 5000UNITS/ML 1ML VIAL/SYRINGE SC SCH ×2 (09:20→20:39)
[2021-07-01] MEDS: PANTOPRAZOLE 40MG VIAL (C9113 PER 1) IV SCH (09:20)
[2021-07-01] MEDS: ASPIRIN 81MG ENTERIC TABLET PO SCH (09:20)
[2021-07-01] MEDS: LORATADINE 10 MG TAB PO SCH (09:21)
[2021-07-01] MEDS: HumaLOG INSULIN (NovoLOG) PER UNIT SC SCH ×4 (09:21→20:18)
[2021-07-01] MEDS: LEVEMIR (INSULIN DETEMIR) 1 UNITS/0.01ML SC SCH ×2 (09:22→20:18)
--- NOTE | 2021-07-01 09:40 | IPNPDOC ---
Text Note Date of Service The patient was seen on 07/01/21. NOTE Subjective: No new acute events overnight. Patient denied any chest pain, p alpitations, abdominal pain. Objective: GENERAL APPEARANCE: Aphasic female HEENT: no scleral icterus, no JVD, EOMI CARDIOVASCULAR: S1S2 LUNGS: Diminished lung sounds bilaterally ABDOMEN: soft & not tender w palpation MUSCULOSKELETAL: no cyanosis, no swelling, dressing over left hip INTEGUMENT: no generalized pallor NEUROLOGICAL: cranial nerve function from 2-12 intact, follows commands Assessment/Plan Patient is 61 years old female with past medical history of expressive aphasia, CVA, type 2 diabetes presented to hospital after mechanical fall. According to her who was present in the room she developed mechanical fall 4 days ago. Patient usually walks with walker after possible stroke around 6 months ago. Her stated that in January 2021 patient developed difficulties in speech and left sided weakness. He did not bring her to the emergency room or to primary care doctor. Patient started using a walker and became aphasic. According to her she understand questions and she can write answer. Sometimes she can tell yes or no. Today, he decided to bring the patient to ER because of her persistent pain over left hip area. In ER CT head was done and showed Ventriculomegaly in proportion to cerebral/cerebellar atrophy without intracranial hemorrhage, vascular territory infarct, mass or mass effect.. Left hip x-ray showed left femoral neck fracture Additional pelvic fractures cannot be ruled out,. Chest x-ray showed no acute cardiopulmonary disease. CT abdomen/pelvis showed Left hip fracture and degenerative changes. No additional fractures are identified. EKG shows normal sinus rhythm without acute ischemic changes. Patient does not have leukocytosis, CPK 847. COVID-19 test positive Problems (1) Femoral neck fracture Orthopedics team performed left hip hemiarthroplasty with greater trochanteric open reduction and internal fixation. Day 3 Ortho team recommended weightbearing for 6-8 weeks for weightbearing as tolerated with use of a walker to the left lower extremity, protect weightbearing to the patient's left lower extremity given the greater trochanter fracture. The patient otherwise will continue range of motion and strengthening of the left lower extremity per the physical therapy rehabilitative protocol. Pain management ARU screen (2) Fall/deconditioning PT/OT (3) Type 2 diabetes mellitus I decreased the dose of night insulin to 10 units Insulin sliding scale (4) Neglected elder Social work on board (5) Expressive aphasia/frontotemporal dementia MRI showed Marked diffuse atrophy with ex vacuo dilatation of the ventricular system. I talked to Dr. Sabillon he diagnosed her with severe frontotemporal dementia He recommended follow-up with him after discharge (6) COVID-19 Patient seems to be asymptomatic She is on room air Lungs clear on auscultation Continue to monitor labs according to COVID-19 protocol Patient received monoclonal antibody infusion Normocytic anemia Most likely secondary to previous surgery for hip repair Patient received 1 unit of blood transfusion on . Hemoglobin 7.5 on 08/30/2020. There is concern for stress ulcer. Await stool for occult blood. Continue PPI. Patient received additional 2 units of blood on 06/30/2021 Continue to monitor VS,Fishbone, I+O VS, Fishbone, I+O Laboratory Tests 07/01/21 06:56 Vital Signs Date Time Temp Pulse Resp B/P (MAP) Pulse Ox O2 Delivery O2 Flow Rate FiO2 07/01/21 06:00 90 Room Air 07/01/21 04:00 98.8 71 20 107/58 (74) 06/27/21 01:15 12.0 I&O- Last 24 Hours up to 6 AM 07/01/21 06:00 Intake Total 1540 ml Output Total 125 ml Balance 1415 ml ARACELI TORRES DO Jul 01, 2021 09:40
[2021-07-01] MEDS: DEXTROSE 50% 50 ML SYRINGE IV PRN (18:14)
[2021-07-01] MEDS: PANTOPRAZOLE 40MG TAB (PROTONIX) PO SCH (20:39)
[2021-07-01] MEDS: ATORVASTATIN 20 MG TAB PO SCH (20:39)
[2021-07-02] VITALS (9 sets, daily range): BP systolic 117–143; BP diastolic 62–73; O2SAT 93–100
[2021-07-02 06:46] LABS: BASO % 0.2 % (0.0-1.0); EOS # 0.5 10^3/uL (0.0-0.5); EOS % 5.2 % (0.0-3.0); HEMATOCRIT 26.9 % (36.0-47.0); HEMOGLOBIN 9.1 g/dl (12.0-15.5); LYMPH # 1.9 10^3/uL (1.5-5.0); LYMPH % 18.1 % (24.0-44.0); MEAN CORPUSCULAR HEMOGLOBIN 29.1 pg (27.0-33.0); MEAN CORPUSCULAR HGB CONC 33.8 g/dl (32.0-36.5); MEAN CORPUSCULAR VOLUME 85.9 fl (80.0-96.0); MONO # 0.7 10^3/uL (0.0-0.8); MONO % 7.2 % (2.0-8.0); NEUTROPHILS # 7.1 10^3/uL (1.5-8.5); NEUTROPHILS % 68.6 % (36.0-66.0); PLATELET COUNT, AUTOMATED 348 10^3/uL (150-450); RED BLOOD COUNT 3.13 10^6/uL (4.00-5.40); WHITE BLOOD COUNT 10.3 10^3/uL (4.0-10.0)
[2021-07-02 07:11] LABS: BLOOD UREA NITROGEN 15 MG/DL (7-18); CALCIUM LEVEL 8.4 MG/DL (8.8-10.2); CARBON DIOXIDE LEVEL 29 MEQ/L (21-32); CHLORIDE LEVEL 107 MEQ/L (98-107); CREATININE FOR GFR 0.65 MG/DL (0.55-1.30); GLOMERULAR FILTRATION RATE > 60.0 (>45); GLUCOSE, FASTING 125 MG/DL (70-100); POTASSIUM SERUM 3.6 MEQ/L (3.5-5.1); SODIUM LEVEL 140 MEQ/L (136-145)
[2021-07-02] MEDS: HumaLOG INSULIN (NovoLOG) PER UNIT SC SCH ×4 (07:30→20:03)
[2021-07-02] MEDS: LORATADINE 10 MG TAB PO SCH (08:41)
[2021-07-02] MEDS: ASPIRIN 81MG ENTERIC TABLET PO SCH (08:41)
[2021-07-02] MEDS: PANTOPRAZOLE 40MG TAB (PROTONIX) PO SCH ×2 (08:42→20:10)
[2021-07-02] MEDS: HEPARIN SOD (PORCINE) 5000UNITS/ML 1ML VIAL/SYRINGE SC SCH ×2 (08:43→20:10)
[2021-07-02] MEDS ORDERED: LEVEMIR (INSULIN DETEMIR) 1 UNITS/0.01ML SC SCH (09:00)
--- NOTE | 2021-07-02 19:32 | IPNPDOC ---
Text Note Date of Service The patient was seen on 07/02/21. NOTE Subjective: 61-year-old female presented to the hospital following a mechanical fall 4 days prior to admission. She was noted to have a left hip fracture, and is status post ORIF. She was also noted to be Covid positive but asymptomatic. A [place]vian abrasive grinder was used (agent #[id number]). Patient is aphasic and was unable to articulate responses. However she was following commands. According to previous documentation following a stroke in January 2021 patient had difficulties with speech and left-sided weakness. Review of systems: Difficult to obtain review of systems due to patient's aphasia Physical exam: General: Lying in bed, no acute distress Head/Neck/Throat: Trachea midline, mucous membranes moist Eyes: Sclera anicteric, no erythema or discharge appreciated bilaterally Thorax: Normal respiratory effort on room air, lungs clear to auscultation bilaterally, no wheezes/rales/rhonchi Cardiovascular: Normal rate, regular rhythm, normal S1, S2; no S3, S4, rubs/gall ops/murmurs Abdomen: Bowel sounds present, soft/nontender/nondistended Genitourinary: No CVA tenderness, no Bansal in place Musculoskeletal: Moving all extremities, no edema Skin: Warm, dry Neurologic: She is aphasic. Left-sided weakness in the upper and lower extremities. Follows simple commands with the use of abrasive grinder Labs: See below Imaging: Please see imaging section Assessment/plan: #Femoral neck fracture -Postoperative day #4 of left hip hemiarthroplasty with greater trochanteric open reduction and internal fixation. -Ortho team recommended weightbearing as tolerated for 6 to 8 weeks with the use of a walker to the left lower extremity. -Pain management #Fall/deconditioning -Continue with PT/OT #Diabetes -Episode of hypoglycemia likely due to poor p.o. intake. We will discontinue a.m. Levemir. Continue with sliding scale, and Accu-Cheks. #Social issues -Suspect patient needs/requirements may be more than what the may be more than what the can tolerate. spring salvage worker on board. #History of CVA -Residual left-sided weakness and aphasia. Patient is at baseline. -An MRI done also showed diffuse atrophy with ex vacuo dilatation of the ventricular system. This was discussed with neurology team and there is suspicion for severe frontotemporal dementia as well; and outpatient follow-up was recommended upon discharge #COVID-19 -Asymptomatic at this time. Adequate saturations on room air. Continue to monitor respiratory status #Acute blood loss anemia -Likely due to surgery. Patient received 1 unit of blood transfusion on 06/29. Hemoglobin remained stable. #DVT prophylaxis -Heparin subcu Disposition: Medically stable for rehab and possible placement. VS,Fishbone, I+O VS, Fishbone, I+O Laboratory Tests 07/02/21 06:27 Vital Signs Date Time Temp Pulse Resp B/P (MAP) Pulse Ox O2 Delivery O2 Flow Rate FiO2 07/02/21 16:00 100 Room Air 07/02/21 14:20 96.9 90 20 143/73 (96) 06/27/21 01:15 12.0 I&O- Last 24 Hours up to 6 AM 07/02/21 06:00 Intake Total 240 ml Output Total 1200 ml Balance -960 ml BOO RODRIGUEZ M.D. Jul 02, 2021 19:32
[2021-07-02] MEDS: LEVEMIR (INSULIN DETEMIR) 1 UNITS/0.01ML SC SCH (20:09)
[2021-07-02] MEDS: ATORVASTATIN 20 MG TAB PO SCH (20:10)
[2021-07-03] VITALS (8 sets, daily range): BP systolic 122–136; BP diastolic 67–72; O2SAT 95–100
[2021-07-03 07:29] LABS: BASO % 0.2 % (0.0-1.0); EOS # 0.5 10^3/uL (0.0-0.5); EOS % 5.5 % (0.0-3.0); HEMATOCRIT 25.9 % (36.0-47.0); HEMOGLOBIN 8.7 g/dl (12.0-15.5); LYMPH % 20.4 % (24.0-44.0); MEAN CORPUSCULAR HGB CONC 33.6 g/dl (32.0-36.5); MEAN CORPUSCULAR VOLUME 86.3 fl (80.0-96.0); MONO # 0.9 10^3/uL (0.0-0.8); NEUTROPHILS # 6.3 10^3/uL (1.5-8.5); NEUTROPHILS % 64.1 % (36.0-66.0); PLATELET COUNT, AUTOMATED 394 10^3/uL (150-450); WHITE BLOOD COUNT 9.9 10^3/uL (4.0-10.0)
[2021-07-03 07:53] LABS: BLOOD UREA NITROGEN 13 MG/DL (7-18); CALCIUM LEVEL 8.2 MG/DL (8.8-10.2); CARBON DIOXIDE LEVEL 29 MEQ/L (21-32); CHLORIDE LEVEL 107 MEQ/L (98-107); CREATININE FOR GFR 0.59 MG/DL (0.55-1.30); GLOMERULAR FILTRATION RATE > 60.0 (>45); GLUCOSE, FASTING 128 MG/DL (70-100); MAGNESIUM LEVEL 1.8 MG/DL (1.8-2.4); PHOSPHORUS LEVEL 1.8 MG/DL (2.5-4.9); POTASSIUM SERUM 3.8 MEQ/L (3.5-5.1); SODIUM LEVEL 140 MEQ/L (136-145)
[2021-07-03] MEDS: ASPIRIN 81MG ENTERIC TABLET PO SCH (08:52)
[2021-07-03] MEDS: HumaLOG INSULIN (NovoLOG) PER UNIT SC SCH ×4 (08:53→20:37)
[2021-07-03] MEDS: PANTOPRAZOLE 40MG TAB (PROTONIX) PO SCH ×2 (08:53→21:22)
[2021-07-03] MEDS: HEPARIN SOD (PORCINE) 5000UNITS/ML 1ML VIAL/SYRINGE SC SCH ×2 (08:53→21:22)
[2021-07-03] MEDS: LORATADINE 10 MG TAB PO SCH (08:53)
--- NOTE | 2021-07-03 17:48 | IPNPDOC ---
Text Note Date of Service The patient was seen on 07/03/21. NOTE Subjective: 61-year-old female presented to the hospital following a mechanical fall 4 days prior to admission. She was noted to have a left hip fracture, and is status post ORIF. She was also noted to be Covid positive but asymptomatic. Review of systems: Difficult to obtain review of systems due to patient's aphasia Physical exam: General: Lying in bed, no acute distress Head/Neck/Throat: Trachea midline, mucous membranes moist Eyes: Sclera anicteric, no erythema or discharge appreciated bilaterally Thorax: Normal respiratory effort on room air, lungs clear to auscultation bilaterally, no wheezes/rales/rhonchi Cardiovascular: Normal rate, regular rhythm, normal S1, S2; no S3, S4, rubs/gallops/murmurs Abdomen: Bowel sounds present, soft/nontender/nondistended Genitourinary: No CVA tenderness, no Bansal in place Musculoskeletal: Moving all extremities, no edema Labs: See below Imaging: Please see imaging section Assessment/plan: #Femoral neck fracture -Postoperative day #5 of left hip hemiarthroplasty with greater trochanteric open reduction and internal fixation. -Ortho team recommended weightbearing as tolerated for 6 to 8 weeks with the use of a walker to the left lower extremity. -Pain management #Fall/deconditioning -Continue with PT/OT #Diabetes -Episode of hypoglycemia likely due to poor p.o. intake. We will discontinue a.m. Levemir. Continue with sliding scale, and Accu-Cheks. #Social issues -Suspect patient needs/requirements may be more than what the may be more than what the can tolerate. plastics worker on board. #History of CVA -Residual left-sided weakness and aphasia. Patient is at baseline. -An MRI done also showed diffuse atrophy with ex vacuo dilatation of the ventricular system. This was discussed with neurology team and there is suspicion for severe frontotemporal dementia as well; and outpatient follow-up was recommended upon discharge #COVID-19 -Asymptomatic at this time. Adequate saturations on room air. Continue to monitor respiratory status #Acute blood loss anemia -Likely due to surgery. Patient received 1 unit of blood transfusion on 06/29. Hemoglobin remained stable. #DVT prophylaxis -Heparin subcu Disposition: Medically stable for rehab and possible placement. She'll be made ALC status. VS,Fishbone, I+O VS, Fishbone, I+O Laboratory Tests 07/03/21 06:25 Vital Signs Date Time Temp Pulse Resp B/P (MAP) Pulse Ox O2 Delivery O2 Flow Rate FiO2 07/03/21 16:00 100 Room Air 07/03/21 14:00 98.6 90 20 122/67 (85) 06/27/21 01:15 12.0 I&O- Last 24 Hours up to 6 AM 07/03/21 06:00 Intake Total 480 ml Output Total 725 ml Balance -245 ml BOO RODRIGUEZ M.D. Jul 03, 2021 17:48
[2021-07-03] MEDS: LEVEMIR (INSULIN DETEMIR) 1 UNITS/0.01ML SC SCH (21:22)
[2021-07-03] MEDS: ATORVASTATIN 20 MG TAB PO SCH (21:22)
[2021-07-04] VITALS (8 sets, daily range): BP systolic 111–118; BP diastolic 60–68; O2SAT 95–98
[2021-07-04] MEDS: PANTOPRAZOLE 40MG TAB (PROTONIX) PO SCH ×2 (09:35→22:11)
[2021-07-04] MEDS: HEPARIN SOD (PORCINE) 5000UNITS/ML 1ML VIAL/SYRINGE SC SCH ×2 (09:35→22:11)
[2021-07-04] MEDS: ASPIRIN 81MG ENTERIC TABLET PO SCH (09:35)
[2021-07-04] MEDS: HumaLOG INSULIN (NovoLOG) PER UNIT SC SCH ×4 (09:35→21:00)
[2021-07-04] MEDS: LORATADINE 10 MG TAB PO SCH (09:36)
--- NOTE | 2021-07-04 17:55 | IPNPDOC ---
Text Note Date of Service The patient was seen on 07/04/21. NOTE Patient's , was contacted and updated regards to clinical course and placement. A [place]ian spice room worker (agent #[id number]) was used. He had no questions and had been previously updated by the director social welfare for placement. He was presently working on paperwork that he had picked up from the hospital and will be returning hopefully by tomorrow. He was asked to call the hospital if he had any questions. VS,Fishbone, I+O VS, Fishbone, I+O Vital Signs Date Time Temp Pulse Resp B/P (MAP) Pulse Ox O2 Delivery O2 Flow Rate FiO2 07/04/21 16:00 98 Room Air 07/04/21 14:00 98.1 83 20 117/65 (82) I&O- Last 24 Hours up to 6 AM 07/04/21 06:00 Intake Total 840 ml Output Total 1225 ml Balance -385 ml BOO RODRIGUEZ M.D. Jul 04, 2021 17:55
[2021-07-04] MEDS: ATORVASTATIN 20 MG TAB PO SCH (22:11)
[2021-07-04] MEDS: LEVEMIR (INSULIN DETEMIR) 1 UNITS/0.01ML SC SCH (22:12)
[2021-07-05] VITALS: O2SAT 96
[2021-07-05 04:00] VITALS: O2SAT 97
[2021-07-05] MEDS: LORATADINE 10 MG TAB PO SCH (08:47)
[2021-07-05] MEDS: PANTOPRAZOLE 40MG TAB (PROTONIX) PO SCH (08:48)
[2021-07-05] MEDS: HumaLOG INSULIN (NovoLOG) PER UNIT SC SCH ×4 (08:48→21:00)
[2021-07-05] MEDS: HEPARIN SOD (PORCINE) 5000UNITS/ML 1ML VIAL/SYRINGE SC SCH (08:48)
[2021-07-05] MEDS: ASPIRIN 81MG ENTERIC TABLET PO SCH (08:48)
[2021-07-05 20:00] VITALS: BP 113/61
[2021-07-05 22:00] VITALS: O2SAT 94
[2021-07-06] VITALS: O2SAT 97
[2021-07-06] MEDS: LEVEMIR (INSULIN DETEMIR) 1 UNITS/0.01ML SC SCH ×2 (01:15→22:28)
[2021-07-06] MEDS: HEPARIN SOD (PORCINE) 5000UNITS/ML 1ML VIAL/SYRINGE SC SCH ×3 (01:15→22:29)
[2021-07-06] MEDS: PANTOPRAZOLE 40MG TAB (PROTONIX) PO SCH ×3 (01:16→22:27)
[2021-07-06] MEDS: ATORVASTATIN 20 MG TAB PO SCH ×2 (01:20→22:27)
[2021-07-06 04:00] VITALS: BP 122/73; O2SAT 98
[2021-07-06] MEDS: HumaLOG INSULIN (NovoLOG) PER UNIT SC SCH ×4 (08:44→22:35)
[2021-07-06] MEDS: LORATADINE 10 MG TAB PO SCH (08:46)
[2021-07-06] MEDS: ASPIRIN 81MG ENTERIC TABLET PO SCH (08:46)
[2021-07-06 20:00] VITALS: BP 162/76; O2SAT 99
[2021-07-06 22:25] VITALS: BP 116/68
[2021-07-06] MEDS: ACETAMINOPHEN TAB 650MG DOSE (2X325MG) PO PRN (22:27)
[2021-07-07] VITALS (7 sets, daily range): BP systolic 102–103; BP diastolic 57–59; O2SAT 97–99
[2021-07-07] MEDS: HumaLOG INSULIN (NovoLOG) PER UNIT SC SCH ×4 (08:31→22:17)
[2021-07-07] MEDS: ASPIRIN 81MG ENTERIC TABLET PO SCH (08:31)
[2021-07-07] MEDS: LORATADINE 10 MG TAB PO SCH (08:31)
[2021-07-07] MEDS: PANTOPRAZOLE 40MG TAB (PROTONIX) PO SCH ×2 (08:32→22:18)
[2021-07-07] MEDS: HEPARIN SOD (PORCINE) 5000UNITS/ML 1ML VIAL/SYRINGE SC SCH ×2 (08:37→22:18)
[2021-07-07] MEDS: LEVEMIR (INSULIN DETEMIR) 1 UNITS/0.01ML SC SCH (22:17)
[2021-07-07] MEDS: ATORVASTATIN 20 MG TAB PO SCH (22:18)
[2021-07-07] MEDS: ACETAMINOPHEN TAB 650MG DOSE (2X325MG) PO PRN (22:19)
[2021-07-08] VITALS: O2SAT 98
[2021-07-08 04:00] VITALS: BP 105/66; O2SAT 99
[2021-07-08 08:00] VITALS: O2SAT 97
[2021-07-08] MEDS: ASPIRIN 81MG ENTERIC TABLET PO SCH (09:17)
[2021-07-08] MEDS: HEPARIN SOD (PORCINE) 5000UNITS/ML 1ML VIAL/SYRINGE SC SCH ×2 (09:17→20:49)
[2021-07-08] MEDS: PANTOPRAZOLE 40MG TAB (PROTONIX) PO SCH ×2 (09:17→20:49)
[2021-07-08] MEDS: LORATADINE 10 MG TAB PO SCH (09:17)
[2021-07-08] MEDS: HumaLOG INSULIN (NovoLOG) PER UNIT SC SCH ×4 (09:18→20:49)
[2021-07-08 20:00] VITALS: O2SAT 96
[2021-07-08] MEDS: ATORVASTATIN 20 MG TAB PO SCH (20:49)
[2021-07-08] MEDS: LEVEMIR (INSULIN DETEMIR) 1 UNITS/0.01ML SC SCH (20:50)
[2021-07-09] VITALS: O2SAT 99
[2021-07-09 04:00] VITALS: O2SAT 97
[2021-07-09 06:00] VITALS: BP 125/69
[2021-07-09] MEDS: HumaLOG INSULIN (NovoLOG) PER UNIT SC SCH ×4 (09:51→20:24)
[2021-07-09] MEDS: HEPARIN SOD (PORCINE) 5000UNITS/ML 1ML VIAL/SYRINGE SC SCH ×2 (09:52→20:24)
[2021-07-09] MEDS: ASPIRIN 81MG ENTERIC TABLET PO SCH (09:52)
[2021-07-09] MEDS: PANTOPRAZOLE 40MG TAB (PROTONIX) PO SCH ×2 (09:52→20:23)
[2021-07-09] MEDS: LORATADINE 10 MG TAB PO SCH (09:53)
[2021-07-09] MEDS: ACETAMINOPHEN TAB 650MG DOSE (2X325MG) PO PRN (09:53)
[2021-07-09] MEDS ORDERED: LIDOCAINE W/EPINEPHRINE 1% 20ML VIAL SC ONE (13:00)
[2021-07-09 20:00] VITALS: O2SAT 98
[2021-07-09] MEDS: ATORVASTATIN 20 MG TAB PO SCH (20:24)
[2021-07-09] MEDS: LEVEMIR (INSULIN DETEMIR) 1 UNITS/0.01ML SC SCH (20:26)
[2021-07-10] VITALS: O2SAT 96
[2021-07-10 04:00] VITALS: O2SAT 94
[2021-07-10 04:43] VITALS: BP 117/68
[2021-07-10] MEDS: HumaLOG INSULIN (NovoLOG) PER UNIT SC SCH ×4 (07:30→20:53)
[2021-07-10 07:39] VITALS: BP 113/57
[2021-07-10] MEDS: PANTOPRAZOLE 40MG TAB (PROTONIX) PO SCH ×2 (08:57→22:03)
[2021-07-10] MEDS: ASPIRIN 81MG ENTERIC TABLET PO SCH (08:57)
[2021-07-10] MEDS: LORATADINE 10 MG TAB PO SCH (08:57)
[2021-07-10] MEDS: HEPARIN SOD (PORCINE) 5000UNITS/ML 1ML VIAL/SYRINGE SC SCH ×2 (08:57→22:03)
[2021-07-10 13:01] VITALS: BP 113/61
[2021-07-10 20:00] VITALS: BP 143/75; O2SAT 97
[2021-07-10] MEDS: ATORVASTATIN 20 MG TAB PO SCH (22:02)
[2021-07-10] MEDS: LEVEMIR (INSULIN DETEMIR) 1 UNITS/0.01ML SC SCH (22:04)
[2021-07-11] VITALS: O2SAT 95
[2021-07-11 04:00] VITALS: O2SAT 96
[2021-07-11 05:00] VITALS: BP 126/59
[2021-07-11 08:00] VITALS: O2SAT 98
--- NOTE | 2021-07-11 08:10 | CR.PDOC ---
General Surgery Consultation Date of Consultation 07/11/21 History and Physical CONSULT REPORT FOR: hospitalist service REASON FOR CONSULTATION: sacral pressure wound HISTORY OF PRESENT ILLNESS: I was asked to evaluate the patient's. Sacral pressure wound. She has been admitted in the hospital on 06/25/2021 for reported history of a mechanical fall and found to have a femoral neck fracture. She was also coincidentally found to have COVID-19 infection. She currently is on the Covid floor for isolation though I was told she is not having any symptoms related to her COVID-19 infection at this point. She underwent repair of her femoral neck fracture a couple of days after the admission. She remains hemodynamically stable. She is mostly bedridden, dependent on care to the hospitalist staff. She is noted to have expressive aphasia also is having difficulty with communicating secondary to her mainly Cypriot-speaking. I was told that the sacral ulcer is present on admission. Currently patient is not having any fever. PAST MEDICAL HISTORY: 1. Recent fall with femoral neck fracture status post left hemiarthroplasty. 2. Suspected history of prior CVA with expressive aphasia 3. Diabetes 4. Deconditioned PAST SURGICAL HISTORY: INCLUDES: 1. Status post ORIF left hip fracture. ALLERGIES: Please see below. HOME MEDICATIONS: Please see below. REVIEW OF SYSTEMS: A formal review of systems cannot be performed secondary to patient's aphasia. PHYSICAL EXAMINATION: VITALS SIGNS: Please see below. GENERAL APPEARANCE: Patient seen, awake but I was not able to communicate with her. She seems to be able to nod and understand me when asked simple questions. SKIN: Warm and dry. She was turned to her side for me to evaluate the wound. She has a large eschar covering both sides of the sacral/gluteal cleft roughly about 12 cm transversely under 10 cm vertically. Extent, depth and grade of the sacral wound not unstageable at this point. There is no periwound erythema. There is some faint smell from the wound. There is some minimal drainage in between the demarcation of the black eschar and normal skin. No fluctuance. ANCILLARIES: . LABORATORY DATA: Please see below. IMAGING STUDIES: . IMPRESSION AND PLAN: sacral pressure wound large 10 x 8 cm black eschar with faint foul smell, unstageable at the moment. I have tried to get hold of the was not available to obtain consent for bedside debridement. I will try again later. Plan is to perform bedside debridement both to stage the ulcer and to allow for dressing changes to allow it to heal. She looks malnourished. She is entirely dependent on staff for her care. I do not see any contamination of stool from the wound though this certainly would be a concern the size and location of the wound. Further recommendation depending on what is underneath the black eschar. I have called her to obtain consent for bedside debridement to begin with to stage the ulcer and help with the dressing/packing of the wound. Vital Signs Vital Signs Date Time Temp Pulse Resp B/P (MAP) Pulse Ox O2 Delivery O2 Flow Rate FiO2 07/11/21 05:00 98.6 81 19 126/59 (81) 96 Room Air I&Os I&O- Last 24 Hours up to 6 AM 07/11/21 05:59 Intake Total 680 ml Output Total 750 ml Balance -70 ml Laboratory Data Labs 24H Laboratory Tests 2 07/10/21 11:29: Bedside Glucose (Misc Panel) 165H 07/10/21 18:11: Bedside Glucose (Misc Panel) 190H 07/10/21 20:46: Bedside Glucose (Misc Panel) 153H 07/11/21 07:50: Bedside Glucose (Misc Panel) 173H Home Medications Scheduled Aspirin (Aspirin) 81 Mg Chw, 325 MG PO DAILY, (Reported) Atorvastatin Calcium (Atorvastatin Calcium) 40 Mg Tablet, 40 MG PO QHS, (Reported) Docusate Sodium (Colace) 100 Mg Cap, 100 MG PO BID, (Reported) Glipizide (Glipizide) 5 Mg Tab, 4 MG PO DAILY, (Reported) Insulin Glargine,Hum.rec.anlog (Basaglar Kwikpen U-100) 100 Unit/1 Ml Insuln.pen, 65 UNITS SC BID, (Reported) Insulin NPH Human Isophane (Novolin N) 100 Unit/Ml Inj, 20 UNITS SC ACB, (Reported) Insulin NPH Human Isophane (Novolin N) 100 Unit/Ml Inj, 20 UNITS SC ACS, (Reported) Lisinopril (Lisinopril) 5 Mg Tablet, 5 MG PO DAILY, (Reported) Loratadine (Loratadine) 10 Mg Tablet, 10 MG PO DAILY, (Reported) [Metformin] , 1 TAB PO BID, (Reported) Scheduled PRN (Cepacol Sore Throat) 5.4 Mg Jhony, 5.4 MG MT Q2HP PRN for SORE THROAT, (Reported) Oxycodone HCl/Acetaminophen (Percocet 5-325 mg Tablet) 1 Tab Tab, 1 TAB PO Q4HP PRN for PAIN OR DISCOMFORT, (Reported) Oxycodone HCl/Acetaminophen (Percocet 5-325 mg Tablet) 1 Tab Tab, 2 TAB PO Q4HP PRN for PAIN SCALE 6-10, (Reported) Polyethylene Glycol 3350 (Polyethylene Glycol 3350) 17 Gm Powd.pack, 17 GM PO DAILY PRN for CONSTIPATION, (Reported) Triamcinolone Acet (Triamcinolone Acetonide 0.1% Oint) 15 Gm Oint...g., 1 APLCT TOP BID PRN for RASH, (Reported) APPLY TO AFFECTED AREA OF ARMS Allergies Coded Allergies: No Known Allergies (Unverified , 02/23/13) HELGA CARCAMO MD Jul 11, 2021 08:10
[2021-07-11] MEDS: HEPARIN SOD (PORCINE) 5000UNITS/ML 1ML VIAL/SYRINGE SC SCH ×2 (08:31→21:23)
[2021-07-11] MEDS: LORATADINE 10 MG TAB PO SCH (08:31)
[2021-07-11] MEDS: ASPIRIN 81MG ENTERIC TABLET PO SCH (08:31)
[2021-07-11] MEDS: PANTOPRAZOLE 40MG TAB (PROTONIX) PO SCH ×2 (08:31→21:23)
[2021-07-11] MEDS: HumaLOG INSULIN (NovoLOG) PER UNIT SC SCH ×4 (08:32→21:00)
[2021-07-11 12:00] VITALS: O2SAT 97
[2021-07-11 16:00] VITALS: O2SAT 96
--- NOTE | 2021-07-11 16:21 | ROOPDOC ---
[facility] Report Of Operation Report of Operation DATE OF PROCEDURE: 07/11/21 PREPROCEDURE DIAGNOSES: Sacral necrotic wound. POSTPROCEDURE DIAGNOSES: Deep stage III sacral wound 8 x 6 x 3 cm PROCEDURE PERFORMED: Excisional debridement necrotic sacral wound. SURGEON: Abel Hernandez MD INSEAMER: ANESTHESIA: Local anesthesia using 1% lidocaine with epinephrine. ESTIMATED BLOOD LOSS: Approximately less than 5 mL. COMPLICATIONS: None. REMARKS: Patient is admitted in the hospital since 06/25/2021 for femoral neck fracture following a fall, is mainly bedridden. She baseline has expressive aphasia from prior CVA. It is unclear if she developed the sacral wound or she came in with the sacral wound that was asked to evaluate and stage to wound and debride the wound.. FINDINGS: Deep stage III sacral wound after sharp bedside debridement. Most likely will need further debridement down the road. Wound measures 8 x 6 cm 3 cm depth at the midline primarily sacrum but also approaching the coccyx. SPECIMENS REMOVED: Necrotic skin and soft tissue. DESCRIPTION OF PROCEDURE: I obtain consent from the via a telephone call. Procedure was done at the bedside. She was positioned on a left lateral decubitus position. The sacral area and lower back was prepped with Betadine and sterile drapes were placed. She has a well-demarcated black eschar covering an area about 8 cm transversely 6 cm vertically. There is no skin erythema but there is a faint foul smell. I remove the black necrotic skin eschar with a 15 blade scalpel after infiltrating the surrounding skin and soft tissue with 1% lidocaine containing epinephrine. Underneath it is further necrotic macerated adipose/soft tissue. This was further debrided down. I then used a sharp curette to remove the loose liquefied fat tissue. This appears to be deep stage III. Unclear if this is involving the muscle but definitely not to the bone yet. Hemostasis performed local pressure. Wound dimensions measures 8 x 6 cm and at 3 cm depth after debridement. Plan is to perform dressing changes over the weekend and reevaluate after the weekend. Most likely will need further debridement, possibly in the OR. ABEL HERNANDEZ MD Jul 11, 2021 16:21
[2021-07-11] MEDS: ATORVASTATIN 20 MG TAB PO SCH (21:23)
[2021-07-11] MEDS: LEVEMIR (INSULIN DETEMIR) 1 UNITS/0.01ML SC SCH (21:23)
[2021-07-12 04:00] VITALS: O2SAT 91
[2021-07-12 04:55] VITALS: O2SAT 96
[2021-07-12 06:00] VITALS: BP 117/70
[2021-07-12 08:00] VITALS: O2SAT 96
[2021-07-12] MEDS: PANTOPRAZOLE 40MG TAB (PROTONIX) PO SCH ×2 (09:08→21:08)
[2021-07-12] MEDS: LORATADINE 10 MG TAB PO SCH (09:08)
[2021-07-12] MEDS: ASPIRIN 81MG ENTERIC TABLET PO SCH (09:08)
[2021-07-12] MEDS: HumaLOG INSULIN (NovoLOG) PER UNIT SC SCH ×4 (09:09→21:00)
[2021-07-12] MEDS: HEPARIN SOD (PORCINE) 5000UNITS/ML 1ML VIAL/SYRINGE SC SCH ×2 (09:09→21:08)
[2021-07-12 14:23] VITALS: BP 99/56
[2021-07-12] MEDS: ACETAMINOPHEN TAB 650MG DOSE (2X325MG) PO PRN (14:27)
[2021-07-12 20:00] VITALS: O2SAT 97
[2021-07-12] MEDS: LEVEMIR (INSULIN DETEMIR) 1 UNITS/0.01ML SC SCH (21:07)
[2021-07-12] MEDS: ATORVASTATIN 20 MG TAB PO SCH (21:09)
[2021-07-13] VITALS: O2SAT 95
[2021-07-13 04:00] VITALS: BP 102/60; O2SAT 95
[2021-07-13 08:00] VITALS: O2SAT 96
[2021-07-13 09:15] VITALS: BP 98/54
[2021-07-13] MEDS: HumaLOG INSULIN (NovoLOG) PER UNIT SC SCH ×4 (09:16→20:26)
[2021-07-13] MEDS: HEPARIN SOD (PORCINE) 5000UNITS/ML 1ML VIAL/SYRINGE SC SCH ×2 (09:16→19:54)
[2021-07-13] MEDS: ASPIRIN 81MG ENTERIC TABLET PO SCH (09:16)
[2021-07-13] MEDS: LORATADINE 10 MG TAB PO SCH (09:16)
[2021-07-13] MEDS: PANTOPRAZOLE 40MG TAB (PROTONIX) PO SCH ×2 (09:16→19:53)
[2021-07-13] MEDS: ACETAMINOPHEN TAB 650MG DOSE (2X325MG) PO PRN (09:17)
--- NOTE | 2021-07-13 12:32 | IPNPDOC ---
Text Note Date of Service The patient was seen on 07/13/21. NOTE Subjective: 61-year-old female presented to the hospital following a mechanical fall 4 days prior to admission. She was noted to have a left hip fracture, and is status post ORIF. She was also noted to be Covid positive but asymptomatic. Review of systems: Difficult to obtain review of systems due to patient's aphasia Physical exam: General: Lying in bed, no acute distress Head/Neck/Throat: Trachea midline, mucous membranes moist Eyes: Sclera anicteric, no erythema or discharge appreciated bilaterally Thorax: Normal respiratory effort on room air, lungs clear to auscultation bilaterally, no wheezes/rales/rhonchi Cardiovascular: Normal rate, regular rhythm, normal S1, S2; no S3, S4, rubs/gallops/murmurs Abdomen: Bowel sounds present, soft/nontender/nondistended Genitourinary: No CVA tenderness, no Bansal in place Skin: Wound was examined and noted to have brownish discoloration. There is no erythema or purulent discharge appreciated. Musculoskeletal: Moving all extremities, no edema Labs: See below Imaging: Please see imaging section Assessment/plan: #Sacral wound -POD#2 excisional debridement of necrotic sacral wound. Continue with local wound care. Plan for possible wound VAC. #Femoral neck fracture -Postoperative day #14 of left hip hemiarthroplasty with greater trochanteric open reduction and internal fixation. -Ortho team recommended weightbearing as tolerated for 6 to 8 weeks with the use of a walker to the left lower extremity. However due to her previous stroke it has been difficult to for her to ambulate. -Pain management #Fall/deconditioning -Continue with PT/OT #Diabetes -Episode of hypoglycemia likely due to poor p.o. intake. We will discontinue a.m. Levemir. Continue with sliding scale, and Accu-Cheks. #Social issues -Suspect patient needs/requirements may be more than what the may be more than what the can tolerate. pull worker on board. #History of CVA -Residual left-sided weakness and aphasia. Patient is at baseline. -An MRI done also showed diffuse atrophy with ex vacuo dilatation of the ventricular system. This was discussed with neurology team and there is suspicion for severe frontotemporal dementia as well; and outpatient follow-up was recommended upon discharge #COVID-19 -Asymptomatic at this time. Adequate saturations on room air. Continue to monitor respiratory status #Acute blood loss anemia -Likely due to surgery. Patient received 1 unit of blood transfusion on 06/29. Hemoglobin remained stable. #DVT prophylaxis -Heparin subcu Disposition: Medically stable for rehab and possible placement. She'll be made ALC status. VS,Fishbone, I+O VS, Fishbone, I+O Vital Signs Date Time Temp Pulse Resp B/P (MAP) Pulse Ox O2 Delivery O2 Flow Rate FiO2 07/13/21 09:15 99.2 92 18 98/54 (69) 96 Room Air I&O- Last 24 Hours up to 6 AM 07/13/21 05:59 Intake Total 570 ml Output Total 450 ml Balance 120 ml BOO RODRIGUEZ M.D. Jul 13, 2021 12:32
[2021-07-13] MEDS: LEVEMIR (INSULIN DETEMIR) 1 UNITS/0.01ML SC SCH (19:54)
[2021-07-13] MEDS: ATORVASTATIN 20 MG TAB PO SCH (19:54)
[2021-07-14 05:00] VITALS: BP 117/69
[2021-07-14 06:07] LABS: HEMATOCRIT 27.4 % (36.0-47.0); HEMOGLOBIN 8.9 g/dl (12.0-15.5); MEAN CORPUSCULAR HEMOGLOBIN 28.8 pg (27.0-33.0); MEAN CORPUSCULAR HGB CONC 32.5 g/dl (32.0-36.5); MEAN CORPUSCULAR VOLUME 88.7 fl (80.0-96.0); PLATELET COUNT, AUTOMATED 377 10^3/uL (150-450); RED BLOOD COUNT 3.09 10^6/uL (4.00-5.40); WHITE BLOOD COUNT 11.5 10^3/uL (4.0-10.0)
[2021-07-14 06:24] LABS: BLOOD UREA NITROGEN 15 MG/DL (7-18); CALCIUM LEVEL 8.8 MG/DL (8.8-10.2); CARBON DIOXIDE LEVEL 28 MEQ/L (21-32); CHLORIDE LEVEL 100 MEQ/L (98-107); CREATININE FOR GFR 0.77 MG/DL (0.55-1.30); GLOMERULAR FILTRATION RATE > 60.0 (>45); GLUCOSE, FASTING 239 MG/DL (70-100); PHOSPHORUS LEVEL 2.2 MG/DL (2.5-4.9); POTASSIUM SERUM 4.2 MEQ/L (3.5-5.1); SODIUM LEVEL 134 MEQ/L (136-145)
[2021-07-14 07:29] VITALS: BP 139/75
[2021-07-14] MEDS: LORATADINE 10 MG TAB PO SCH (09:05)
[2021-07-14] MEDS: HumaLOG INSULIN (NovoLOG) PER UNIT SC SCH ×4 (09:05→20:32)
[2021-07-14] MEDS: ASPIRIN 81MG ENTERIC TABLET PO SCH (09:05)
[2021-07-14] MEDS: PANTOPRAZOLE 40MG TAB (PROTONIX) PO SCH ×2 (09:05→20:55)
[2021-07-14] MEDS: HEPARIN SOD (PORCINE) 5000UNITS/ML 1ML VIAL/SYRINGE SC SCH ×2 (09:05→20:55)
[2021-07-14] MEDS ORDERED: K-PHOS ORIGINAL (POT.ACID PHOSPHATE) 500MG TAB PO ONE (18:55)
[2021-07-14] MEDS: ATORVASTATIN 20 MG TAB PO SCH (20:55)
[2021-07-14] MEDS: LEVEMIR (INSULIN DETEMIR) 1 UNITS/0.01ML SC SCH (20:56)
[2021-07-15 04:00] VITALS: BP 127/79
[2021-07-15] MEDS: PANTOPRAZOLE 40MG TAB (PROTONIX) PO SCH ×2 (08:26→23:25)
[2021-07-15] MEDS: LORATADINE 10 MG TAB PO SCH (08:26)
[2021-07-15] MEDS: HumaLOG INSULIN (NovoLOG) PER UNIT SC SCH ×4 (08:26→23:27)
[2021-07-15] MEDS: HEPARIN SOD (PORCINE) 5000UNITS/ML 1ML VIAL/SYRINGE SC SCH ×2 (08:26→23:24)
[2021-07-15] MEDS: ASPIRIN 81MG ENTERIC TABLET PO SCH (08:26)
[2021-07-15 14:00] VITALS: BP 145/73
[2021-07-15] MEDS: ATORVASTATIN 20 MG TAB PO SCH (23:25)
[2021-07-15] MEDS: LEVEMIR (INSULIN DETEMIR) 1 UNITS/0.01ML SC SCH (23:28)
[2021-07-16 05:30] VITALS: BP 101/58
[2021-07-16 07:15] VITALS: BP 113/41
[2021-07-16] MEDS: ASPIRIN 81MG ENTERIC TABLET PO SCH (08:37)
[2021-07-16] MEDS: LORATADINE 10 MG TAB PO SCH (08:37)
[2021-07-16] MEDS: PANTOPRAZOLE 40MG TAB (PROTONIX) PO SCH ×2 (08:37→21:34)
[2021-07-16] MEDS: HumaLOG INSULIN (NovoLOG) PER UNIT SC SCH ×4 (08:37→21:35)
[2021-07-16] MEDS: HEPARIN SOD (PORCINE) 5000UNITS/ML 1ML VIAL/SYRINGE SC SCH ×2 (08:38→21:34)
[2021-07-16] MEDS: ACETAMINOPHEN TAB 650MG DOSE (2X325MG) PO PRN (21:34)
[2021-07-16] MEDS: ATORVASTATIN 20 MG TAB PO SCH (21:34)
[2021-07-16] MEDS: LEVEMIR (INSULIN DETEMIR) 1 UNITS/0.01ML SC SCH (21:35)
[2021-07-17 06:00] VITALS: BP 114/66
[2021-07-17] MEDS: OMEPRAZOLE 20 MG CAP PO SCH (08:10)
[2021-07-17] MEDS: HumaLOG INSULIN (NovoLOG) PER UNIT SC SCH ×4 (08:10→21:00)
[2021-07-17] MEDS: LORATADINE 10 MG TAB PO SCH (08:11)
[2021-07-17] MEDS: HEPARIN SOD (PORCINE) 5000UNITS/ML 1ML VIAL/SYRINGE SC SCH ×2 (08:11→23:00)
[2021-07-17] MEDS: ASPIRIN 81MG ENTERIC TABLET PO SCH (08:11)
[2021-07-17] MEDS: ACETAMINOPHEN TAB 650MG DOSE (2X325MG) PO PRN (17:46)
[2021-07-17 18:22] LABS: HEMATOCRIT 27.9 % (36.0-47.0); HEMOGLOBIN 9.2 g/dl (12.0-15.5); PLATELET COUNT, AUTOMATED 333 10^3/uL (150-450); RED BLOOD COUNT 3.17 10^6/uL (4.00-5.40); WHITE BLOOD COUNT 12.8 10^3/uL (4.0-10.0)
[2021-07-17 18:47] LABS: ALBUMIN 1.9 GM/DL (3.2-5.2); ALT/SGPT 26 U/L (12-78); BILIRUBIN,TOTAL 1.1 MG/DL (0.2-1.0); BLOOD UREA NITROGEN 18 MG/DL (7-18); CALCIUM LEVEL 8.4 MG/DL (8.8-10.2); CARBON DIOXIDE LEVEL 27 MEQ/L (21-32); CHLORIDE LEVEL 100 MEQ/L (98-107); CREATININE FOR GFR 0.98 MG/DL (0.55-1.30); GLOMERULAR FILTRATION RATE > 60.0 (>45); GLUCOSE, FASTING 247 MG/DL (70-100); POTASSIUM SERUM 5.5 MEQ/L (3.5-5.1); SODIUM LEVEL 134 MEQ/L (136-145); TOTAL PROTEIN 6.7 GM/DL (6.4-8.2)
[2021-07-17] MEDS ORDERED: VANCOMYCIN HCL 750 MG, VIAL MATE ADAPTER 1 EACH in NS 250 ML IV SCH (20:00)
--- NOTE | 2021-07-17 20:09 | IPNPDOC ---
Text Note Date of Service The patient was seen on 07/17/21. NOTE I was notified by nurse that patient had a fever of 102. I saw patient at bed side. She appeared comfortable but warm to touch. Nursing told me they had just changed her sacral wound dressing and she had felt warm which was when they found the fever. Otherwise, she had a salazar catheter from 06/25/21 with dark appearing urine. She has not drank much fluids. I ordered for CBC, CMP, procalcitonin, and blood cultures. I requested that the salazar catheter be changed and a UA be drawn off the new salazar catheter. Procalcitonin increased to 2.87 from 0.15. Added CXR and wound culture. Empirically started patient on Zosyn and Vancomycin. VS,Fishbone, I+O VS, Fishbone, I+O Laboratory Tests 07/17/21 18:12 Vital Signs Date Time Temp Pulse Resp B/P (MAP) Pulse Ox O2 Delivery O2 Flow Rate FiO2 07/17/21 18:00 102.7 07/17/21 06:00 104 18 114/66 (82) 93 Room Air I&O- Last 24 Hours up to 6 AM 07/17/21 06:00 Intake Total 1195 ml Output Total 200 ml Balance 995 ml DIMITRY LEÓN DO Jul 17, 2021 20:09
[2021-07-17] MEDS: PIPERACILLIN/TAZOBACTAM SOD 3.375 GM in D5W MINI-BAG PLUS 50 ML IV SCH (21:29)
[2021-07-17] MEDS ORDERED: VANCOMYCIN HCL 750 MG, VIAL MATE ADAPTER 1 EACH in NS 250 ML IV ONE ×2 (22:00→23:00)
[2021-07-17] MEDS: LEVEMIR (INSULIN DETEMIR) 1 UNITS/0.01ML SC SCH (23:00)
[2021-07-17] MEDS: NS 1,000 ML IV SCH (23:00)
[2021-07-17] MEDS: ATORVASTATIN 20 MG TAB PO SCH (23:00)
[2021-07-18] MEDS: PIPERACILLIN/TAZOBACTAM SOD 3.375 GM in D5W MINI-BAG PLUS 50 ML IV SCH ×4 (03:36→21:20)
[2021-07-18] MEDS: VANCOMYCIN HCL 1,000 MG, VIAL MATE ADAPTER 1 EACH in NS 250 ML IV SCH ×2 (06:30→17:56)
[2021-07-18 06:32] VITALS: BP 115/67
[2021-07-18 07:13] LABS: BASO % 0.2 % (0.0-1.0); EOS # 0.1 10^3/uL (0.0-0.5); EOS % 0.7 % (0.0-3.0); HEMATOCRIT 25.5 % (36.0-47.0); HEMOGLOBIN 8.1 g/dl (12.0-15.5); LYMPH # 1.8 10^3/uL (1.5-5.0); LYMPH % 14.5 % (24.0-44.0); MEAN CORPUSCULAR HEMOGLOBIN 28.5 pg (27.0-33.0); MEAN CORPUSCULAR HGB CONC 31.8 g/dl (32.0-36.5); MEAN CORPUSCULAR VOLUME 89.8 fl (80.0-96.0); NEUTROPHILS # 9.2 10^3/uL (1.5-8.5); NEUTROPHILS % 75.9 % (36.0-66.0); PLATELET COUNT, AUTOMATED 283 10^3/uL (150-450); RED BLOOD COUNT 2.84 10^6/uL (4.00-5.40); WHITE BLOOD COUNT 12.2 10^3/uL (4.0-10.0)
[2021-07-18 07:37] LABS: BLOOD UREA NITROGEN 21 MG/DL (7-18); CALCIUM LEVEL 8.3 MG/DL (8.8-10.2); CARBON DIOXIDE LEVEL 27 MEQ/L (21-32); CHLORIDE LEVEL 102 MEQ/L (98-107); CREATININE FOR GFR 0.98 MG/DL (0.55-1.30); GLOMERULAR FILTRATION RATE > 60.0 (>45); GLUCOSE, FASTING 267 MG/DL (70-100); POTASSIUM SERUM 3.9 MEQ/L (3.5-5.1); SODIUM LEVEL 136 MEQ/L (136-145)
[2021-07-18] MEDS: LORATADINE 10 MG TAB PO SCH (08:24)
[2021-07-18] MEDS: HumaLOG INSULIN (NovoLOG) PER UNIT SC SCH ×4 (08:24→20:59)
[2021-07-18] MEDS: ASPIRIN 81MG ENTERIC TABLET PO SCH (08:24)
[2021-07-18] MEDS: HEPARIN SOD (PORCINE) 5000UNITS/ML 1ML VIAL/SYRINGE SC SCH ×2 (08:25→21:22)
[2021-07-18] MEDS: OMEPRAZOLE 20 MG CAP PO SCH (08:25)
[2021-07-18] MEDS: NS 1,000 ML IV SCH (12:34)
--- NOTE | 2021-07-18 18:43 | IPNPDOC ---
Subjective Date Seen The patient was seen on 07/18/21. Subjective Chief Complaint/HPI Mrs. Pearson is a 61 year old female with expressive aphasia, CVA, DM type 2 here after left hip fracture 2/[address] Rush performed left hip hemiarthroplasty with greater trochanteric open reduction and internal fixation on 06/26/2021. Patient was unable to work with PT due to language barrier, aphasia, and dementia. Therapy was discontinued, and she was pending placement. On 07/11/2021, Dr. Hernandez was consulted for sacral ulcer which he debrided. Then on 07/17/2021, patient spiked a fever. Infectious work-up initiated and patient started on Zosyn and Vanco. Procalcitonin increased from 0.15 to 2.87. Today, patient appears comfortable. We were not able to communicate. When I spoke with the nurse, they tried multiple forms of communication including break out man. Still unable to communicate with patient. Otherwise, blood culture positive for gram-negative rods. Wound culture demonstrates many gram-negative rods and moderate gram-positive cocci in pairs, chains, and clusters. She may have seeded from her wound. Anticipate wound debridement tomorrow with general surgery. Objective Physical Examination General Exam: Positive: Alert Eye Exam: Negative: Sclera icteric Neck Exam: Positive: Supple Chest Exam: Positive: Clear to auscultation Heart Exam: Positive: Rate Normal, Regular Rhythm Abdomen Exam: Positive: Normal bowel sounds, Soft, Tenderness Extremity Exam: Negative: Edema Neuro Exam: Negative: Normal Speech (Unable to communicate) Psych Exam: Positive: Other (Unable to communicate, but appears normal) Assessment /Plan Assessment Mrs. Pearson is a 61 year old female with expressive aphasia, CVA, DM type 2 here after left hip fracture 2/[address] Rush performed left hip hemiarthroplasty with greater trochanteric open reduction and internal fixation on 06/26/2021. Patient was unable to work with PT due to language barrier, aphasia, and dementia. Therapy was discontinued, and she was pending placement. On 07/11/2021, Dr. Hernandez was consulted for sacral ulcer which he debrided. Then on 07/17/2021, patient spiked a fever. Infectious work-up initiated and patient started on Zosyn and Vanco. Procalcitonin increased from 0.15 to 2.87. Patient's blood culture demonstrates gram-negative rods. Most likely seeded from wound. Patient start on broad-spectrum antibiotics. Anticipate debridement tomorrow with general surgery Plan/VTE VTE Prophylaxis Ordered?: Yes Plan 1. Gram-negative bacteremia secondary to sacral wound Necrotic sacral wound was initially debrided on 07/11/[address] Hernandez Anticipate return to the OR for another debridement on 07/18/2021 Wound culture and blood culture both have gram-negative rods Empirically on Zosyn and Vanco 2. Gram-negative sepsis Patient had fever and leukocytosis Procalcitonin elevated at 2.87 Zosyn and Vanco day 1 3. Femoral neck fracture Status post left hip hemiarthroplasty with greater trochanteric open reduction and internal fixation on 06/26/2021 4. Diabetes mellitus Continue basalbolus insulin 5. History of CVA Patient has residual left-sided weakness and aphasia MRI was done which demonstrated diffuse atrophy with ex vacuo dilatation of the ventricular system. Neurology team has a suspicion for severe frontotemporal dementia Can consider outpatient follow-up on discharge 6. COVID-19 positive Asymptomatic Patient completed quarantine 7. DVT prophylaxis Teds Disposition: Pending blood culture results and surgery. Patient was switched back to inpatient today. VS, I&O, 24H, [facility] Vital Signs/I&O Vital Signs Date Time Temp Pulse Resp B/P (MAP) Pulse Ox O2 Delivery O2 Flow Rate FiO2 07/18/21 06:32 100.1 95 20 115/67 (83) 95 Nasal Cannula 2.0 I&O- Last 24 Hours up to 6 AM 07/18/21 06:00 Intake Total 1130 ml Output Total 300 ml Balance 830 ml Laboratory Data 24H LABS Laboratory Tests 2 07/17/21 18:12: Nucleated Red Blood Cells % (auto) 0.0, Anion Gap 7L, Glomerular Filtration Rate > 60.0, Calcium Level 8.4L, Total Bilirubin 1.1H, Aspartate Amino Transf (AST/SGOT) 54H, Alanine Aminotransferase (ALT/SGPT) 26, Alkaline Phosphatase 143H, Total Protein 6.7, Albumin 1.9L, Albumin/Globulin Ratio 0.4L, Procalcitonin 2.87 07/17/21 20:23: Urine Color JESUS, Urine Appearance CLOUDYH, Urine pH 5.0, Urine Specific [place] 1.029, Urine Protein 2+H, Urine Glucose (UA) 1+H, Urine Ketones TRACEH, Urine Blood NEGATIVE, Urine Nitrite NEGATIVE, Urine Bilirubin 1+H, Urine Urobilinogen 4.0H, Urine Leukocyte Esterase TRACEH, Urine WBC (Auto) 8H, Urine RBC (Auto) 19H, Urine Hyaline Casts (Auto) 2, Urine Bacteria (Auto) NEGATIVE, Urine Squamous Epithelial Cells 3, Urine Mucus (Auto) LARGE, Urine Sperm (Auto) 07/17/21 21:28: Bedside Glucose (Misc Panel) 210H 07/18/21 07:01: Nucleated Red Blood Cells % (auto) 0.0, Anion Gap 7L, Glomerular Filtration Rate > 60.0, Calcium Level 8.3L, Immature Granulocyte % (Auto) 0.7, Neutrophils (%) (Auto) 75.9H, Lymphocytes (%) (Auto) 14.5L, Monocytes (%) (Auto) 8.0, Eosinophils (%) (Auto) 0.7, Basophils (%) (Auto) 0.2, Neutrophils # (Auto) 9.2H, Lymphocytes # (Auto) 1.8, Monocytes # (Auto) 1.0H, Eosinophils # (Auto) 0.1, Basophils # (Auto) 0.0 07/18/21 12:29: Bedside Glucose (Misc Panel) 247H 07/18/21 16:58: Bedside Glucose (Misc Panel) 211H CBC/BMP Laboratory Tests 07/17/21 18:12 07/18/21 07:01 Microbiology Microbiology 07/17/21 Gram Stain - Final, Resulted 07/17/21 Wound Culture, Resulted Pending 07/17/21 Urine Culture, Received Pending 07/17/21 Blood Culture - Preliminary, Resulted 07/17/21 Blood Culture, Received Pending DIMITRY LEÓN DO Jul 18, 2021 18:43
[2021-07-18 21:02] VITALS: BP 112/61
[2021-07-18] MEDS: ATORVASTATIN 20 MG TAB PO SCH (21:20)
[2021-07-18] MEDS: ACETAMINOPHEN TAB 650MG DOSE (2X325MG) PO PRN (21:20)
[2021-07-18] MEDS: LEVEMIR (INSULIN DETEMIR) 1 UNITS/0.01ML SC SCH (21:21)
[2021-07-19] VITALS (9 sets, daily range): BP systolic 98–110; BP diastolic 56–81
[2021-07-19] MEDS: PIPERACILLIN/TAZOBACTAM SOD 3.375 GM in D5W MINI-BAG PLUS 50 ML IV SCH ×4 (02:54→20:22)
[2021-07-19 05:35] LABS: BASO % 0.1 % (0.0-1.0); EOS # 0.4 10^3/uL (0.0-0.5); EOS % 2.6 % (0.0-3.0); HEMATOCRIT 24.2 % (36.0-47.0); HEMOGLOBIN 7.6 g/dl (12.0-15.5); LYMPH # 2.1 10^3/uL (1.5-5.0); LYMPH % 15.8 % (24.0-44.0); MEAN CORPUSCULAR HEMOGLOBIN 28.7 pg (27.0-33.0); MEAN CORPUSCULAR HGB CONC 31.4 g/dl (32.0-36.5); MEAN CORPUSCULAR VOLUME 91.3 fl (80.0-96.0); MONO # 1.2 10^3/uL (0.0-0.8); MONO % 8.7 % (2.0-8.0); NEUTROPHILS # 9.7 10^3/uL (1.5-8.5); PLATELET COUNT, AUTOMATED 274 10^3/uL (150-450); RED BLOOD COUNT 2.65 10^6/uL (4.00-5.40); WHITE BLOOD COUNT 13.5 10^3/uL (4.0-10.0)
[2021-07-19 06:10] LABS: BLOOD UREA NITROGEN 20 MG/DL (7-18); CALCIUM LEVEL 7.7 MG/DL (8.8-10.2); CARBON DIOXIDE LEVEL 27 MEQ/L (21-32); CHLORIDE LEVEL 107 MEQ/L (98-107); CREATININE FOR GFR 0.98 MG/DL (0.55-1.30); GLOMERULAR FILTRATION RATE > 60.0 (>45); GLUCOSE, FASTING 279 MG/DL (70-100); POTASSIUM SERUM 3.9 MEQ/L (3.5-5.1); SODIUM LEVEL 140 MEQ/L (136-145); VANCOMYCIN LEVEL TROUGH 17.7 UG/ML (10.0-20.0)
[2021-07-19] MEDS: VANCOMYCIN HCL 1,000 MG, VIAL MATE ADAPTER 1 EACH in NS 250 ML IV SCH ×2 (06:23→18:27)
[2021-07-19] MEDS: HumaLOG INSULIN (NovoLOG) PER UNIT SC SCH ×4 (07:30→20:24)
[2021-07-19] MEDS: HEPARIN SOD (PORCINE) 5000UNITS/ML 1ML VIAL/SYRINGE SC SCH ×2 (08:03→20:21)
[2021-07-19] MEDS: ASPIRIN 81MG ENTERIC TABLET PO SCH (08:04)
[2021-07-19] MEDS: LORATADINE 10 MG TAB PO SCH (08:04)
[2021-07-19] MEDS: OMEPRAZOLE 20 MG CAP PO SCH (08:04)
[2021-07-19 08:27] LABS: FERRITIN 1658 NG/ML (8-252); IRON (FE) 23 UG/DL (50-170); LDH LACTATE DEHYDROGENASE 316 U/L (84-246); PERCENT SATURATION 17.4 % (13.2-45.0); TOTAL IRON BINDING CAPACITY 132 UG/DL (250-450)
[2021-07-19] MEDS ORDERED: ROCURONIUM BROMIDE 50 MG/5 ML VIAL As Ordered ONE ×2 (09:19→11:22)
[2021-07-19] MEDS ORDERED: ACETAMINOPHEN 1000MG 100ML IV BTL (OFIRMEV) (J0131 PER 10MG) As Ordered ONE ×2 (09:19→10:33)
[2021-07-19] MEDS ORDERED: SUGAMMADEX SODIUM 500 MG/5 ML VIAL (BRIDION) As Ordered ONE (09:19)
[2021-07-19] MEDS ORDERED: propofoL 200 MG/20 ML VIAL As Ordered ONE (09:19)
[2021-07-19] MEDS ORDERED: LIDOCAINE 2% 100MG/5ML SDV (FOR ANES.) As Ordered ONE (09:19)
[2021-07-19] MEDS ORDERED: dexameTHASONE 4 MG/ML 1ML VIAL (J1100 PER 1MG) As Ordered ONE (09:19)
[2021-07-19] MEDS ORDERED: MIDAZOLAM INJ 2MG/2ML VIAL (J2250 PER 1MG) As Ordered ONE (09:19)
[2021-07-19] MEDS ORDERED: ONDANSETRON 4MG/2ML VIAL As Ordered ONE (09:19)
[2021-07-19] MEDS ORDERED: fentaNYL 100 MCG/2 ML INJECTION (J3010) As Ordered ONE (09:19)
--- NOTE | 2021-07-19 09:48 | IPNPDOC ---
Text Note Date of Service The patient was seen on 07/19/21. NOTE I examined the patient's wounds today. Looks like she was having some low-grade febrile episodes the past 2 days and there febrile work-up shows gram-negative rods in the blood culture and growth of gram-negative rods in her wound. Her wound shows no healing from the time that I did the debridement last week. Still has some black necrotic soft tissue and small amount of skin on the inferior ends but there is no active purulent drainage that I could see. He does have a faint foul smell. There is no surrounding skin erythema. Impression and plan Infected necrotic sacral wound pressure ulcer stage III I will bring her to the operating room today for debridement and placement of wound VAC. I have called her to obtain consent and used the iPad powerhouse laborer to explain the planned procedure. Consent was obtained. The antibiotics have been adjusted by her primary service. VS,Oscarbone, I+O VS, Fishbone, I+O Laboratory Tests 07/19/21 05:19 Vital Signs Date Time Temp Pulse Resp B/P (MAP) Pulse Ox O2 Delivery O2 Flow Rate FiO2 07/19/21 06:45 98.1 88 18 105/81 (89) 96 Room Air 07/18/21 06:32 2.0 I&O- Last 24 Hours up to 6 AM 07/19/21 05:59 Intake Total 690 ml Output Total 750 ml Balance -60 ml HELGA CARCAMO MD Jul 19, 2021 09:48
--- NOTE | 2021-07-19 10:52 | REPVR ---
PROCEDURE INFORMATION: Exam: XR Chest Exam date and time: 07/17/2021 9:17 PM Age: 61 years old Clinical indication: Fever TECHNIQUE: Imaging protocol: XR of the chest. Views: 1 view. COMPARISON: CR PORTABLE CHEST X-RAY 06/25/2021 11:12 AM FINDINGS: Lungs: Lung volumes are low. Projection is lordotic. Minimal left retrocardiac atelectasis versus pneumonia. Minimal diffuse interstitial prominence this may be related to low lung volumes. Pleural spaces: Unremarkable. No pleural effusion. No pneumothorax. Heart/Mediastinum: Heart size appears mildly enlarged, but appearance may be exaggerated by lordotic projection. Vasculature: Tortuous ectatic aorta. Bones/joints: No acute osseous abnormality. IMPRESSION: 1. Minimal left retrocardiac atelectasis versus pneumonia. 2. Minimal diffuse interstitial prominence but this may be related to low lung volumes. 3. Heart size appears mildly enlarged, but appearance may be exaggerated by lordotic projection. Electronically signed by: Delilah Marsh On 07/19/2021 10:52:19 AM
[2021-07-19] MEDS ORDERED: ePHEDrine SULFATE 25 MG/5 ML(5MG/ML) SYRINGE As Ordered ONE (11:03)
[2021-07-19] MEDS ORDERED: PHENYLephrine 500MCG 5ML (100MCG/ML) SYRINGE As Ordered ONE (11:03)
[2021-07-19] MEDS ORDERED: fentaNYL 100 MCG/2 ML INJECTION (J3010) IV PRN (12:25)
[2021-07-19] MEDS ORDERED: LR 1,000 ML IV SCH (12:25)
[2021-07-19] MEDS ORDERED: METOCLOPRAMIDE INJ 10MG/2ML VIAL (J2765 PER 1) IV PRN (12:25)
[2021-07-19] MEDS ORDERED: oxyCODONE 5MG TAB PO PRN (12:25)
[2021-07-19] MEDS ORDERED: ONDANSETRON 4MG/2ML VIAL IV PRN (12:25)
--- NOTE | 2021-07-19 12:33 | IPNPDOC ---
Subjective Date Seen The patient was seen on 07/19/21. Subjective Chief Complaint/HPI Mrs. Pearson is a 61 year old female with expressive aphasia, CVA, DM type 2 here after left hip fracture 2/[address] Rush performed left hip hemiarthroplasty with greater trochanteric open reduction and internal fixation on 06/26/2021. Patient was unable to work with PT due to language barrier, aphasia, and dementia. Therapy was discontinued, and she was pending placement. On 07/11/2021, Dr. Hernandez was consulted for sacral ulcer which he debrided. Then on 07/17/2021, patient spiked a fever. Infectious work-up initiated and patient started on Zosyn and Vanco. Procalcitonin increased from 0.15 to 2.87. Overnight, patient had a low-grade temp of 100.1. Today, patient did not appear to be in any distress. Plan to go to the OR for debridement today Objective Physical Examination General Exam: Positive: Alert Eye Exam: Negative: Sclera icteric Neck Exam: Positive: Supple Chest Exam: Positive: Clear to auscultation Heart Exam: Positive: Rate Normal, Regular Rhythm Abdomen Exam: Positive: Normal bowel sounds, Soft, Tenderness Extremity Exam: Negative: Edema Neuro Exam: Negative: Normal Speech (Unable to communicate) Psych Exam: Positive: Other (Unable to communicate, but appears normal) Assessment /Plan Assessment Mrs. Pearson is a 61 year old female with expressive aphasia, CVA, DM type 2 here after left hip fracture 2/[address] Rush performed left hip hemiarthroplasty with greater trochanteric open reduction and internal fixation on 06/26/2021. Patient was unable to work with PT due to language barrier, aphasia, and dementia. Therapy was discontinued, and she was pending placement. On 07/11/2021, Dr. Hernandez was consulted for sacral ulcer which he debrided. Then on 07/17/2021, patient spiked a fever. Infectious work-up initiated and patient started on Zosyn and Vanco. Procalcitonin increased from 0.15 to 2.87. Patient's blood culture demonstrates gram-negative rods. Most likely seeded from wound. Patient start on broad-spectrum antibiotics. Plan for debridement today Plan/VTE VTE Prophylaxis Ordered?: Yes Plan 1. Gram-negative bacteremia secondary to sacral wound Necrotic sacral wound was initially debrided on 07/11/[address] Hernandez Anticipate return to the OR for another debridement on 07/18/2021 Wound culture and blood culture both have gram-negative rods Empirically on Zosyn and Vanco 2. Gram-negative sepsis Patient had fever and leukocytosis Procalcitonin elevated at 2.87 Zosyn and Vanco day 2 3. Femoral neck fracture Status post left hip hemiarthroplasty with greater trochanteric open reduction and internal fixation on 06/26/2021 4. Diabetes mellitus Continue basalbolus insulin 5. History of CVA Patient has residual left-sided weakness and aphasia MRI was done which demonstrated diffuse atrophy with ex vacuo dilatation of the ventricular system. Neurology team has a suspicion for severe frontotemporal dementia Can consider outpatient follow-up on discharge 6. COVID-19 positive Asymptomatic Patient completed quarantine 7. DVT prophylaxis Teds Disposition: Pending blood culture results and surgery. VS, I&O, 24H, Fishbone Vital Signs/I&O Vital Signs Date Time Temp Pulse Resp B/P (MAP) Pulse Ox O2 Delivery O2 Flow Rate FiO2 07/19/21 06:45 98.1 88 18 105/81 (89) 96 Room Air 07/18/21 06:32 2.0 I&O- Last 24 Hours up to 6 AM 07/19/21 06:00 Intake Total 690 ml Output Total 750 ml Balance -60 ml Laboratory Data 24H LABS Laboratory Tests 2 07/18/21 12:29: Bedside Glucose (Misc Panel) 247H 07/18/21 16:58: Bedside Glucose (Misc Panel) 211H 07/18/21 20:58: Bedside Glucose (Misc Panel) 233H 07/19/21 05:19: Immature Granulocyte % (Auto) 0.8, Neutrophils (%) (Auto) 72.0H, Lymphocytes (%) (Auto) 15.8L, Monocytes (%) (Auto) 8.7H, Eosinophils (%) (Auto) 2.6, Basophils (%) (Auto) 0.1, Neutrophils # (Auto) 9.7H, Lymphocytes # (Auto) 2.1, Monocytes # (Auto) 1.2H, Eosinophils # (Auto) 0.4, Basophils # (Auto) 0.0, Reticulocyte # (auto) 81.6H, Nucleated Red Blood Cells % (auto) 0.0, Percent Reticulocyte Count 3.1H, Reticulocyte Hemoglobin Equivalent 25.9, Anion Gap 6L, Glomerular Filtration Rate > 60.0, Calcium Level 7.7L, Iron Level 23L, Total Iron Binding Capacity 132L, Transferrin % Saturation 17.4, Ferritin 1658H, Lactate Dehydrogenase 316H, Vancomycin Level Trough 17.7 07/19/21 05:31: Bedside Glucose (Misc Panel) 282H CBC/BMP Laboratory Tests 07/19/21 05:19 Microbiology Microbiology 07/17/21 Gram Stain - Final, Resulted 07/17/21 Wound Culture, Resulted Pending 07/17/21 Urine Culture, Received Pending 07/17/21 Blood Culture - Preliminary, Resulted 07/17/21 Blood Culture - Preliminary, Resulted No growth after 24 hours . All specim... DIMITRY LEÓN DO Jul 19, 2021 12:33
[2021-07-19 14:02] LABS: HEMOGLOBIN 7.9 g/dl (12.0-15.5); MEAN CORPUSCULAR HEMOGLOBIN 28.8 pg (27.0-33.0); MEAN CORPUSCULAR HGB CONC 31.6 g/dl (32.0-36.5); MEAN CORPUSCULAR VOLUME 91.2 fl (80.0-96.0); PLATELET COUNT, AUTOMATED 282 10^3/uL (150-450); RED BLOOD COUNT 2.74 10^6/uL (4.00-5.40); WHITE BLOOD COUNT 13.7 10^3/uL (4.0-10.0)
[2021-07-19] MEDS: NS 1,000 ML IV SCH (15:26)
[2021-07-19] MEDS: LEVEMIR (INSULIN DETEMIR) 1 UNITS/0.01ML SC SCH (20:22)
[2021-07-19] MEDS: ATORVASTATIN 20 MG TAB PO SCH (20:22)
[2021-07-20] VITALS (18 sets, daily range): BP systolic 107–126; BP diastolic 50–78
[2021-07-20] MEDS: PIPERACILLIN/TAZOBACTAM SOD 3.375 GM in D5W MINI-BAG PLUS 50 ML IV SCH ×4 (02:34→22:40)
[2021-07-20] MEDS: NS 1,000 ML IV SCH ×2 (05:47→20:21)
[2021-07-20] MEDS: VANCOMYCIN HCL 1,000 MG, VIAL MATE ADAPTER 1 EACH in NS 250 ML IV SCH ×2 (05:47→20:21)
[2021-07-20 07:36] LABS: BASO % 0.1 % (0.0-1.0); EOS # 0.3 10^3/uL (0.0-0.5); EOS % 2.9 % (0.0-3.0); HEMATOCRIT 21.3 % (36.0-47.0); LYMPH % 17.3 % (24.0-44.0); MEAN CORPUSCULAR HEMOGLOBIN 28.6 pg (27.0-33.0); MEAN CORPUSCULAR HGB CONC 31.5 g/dl (32.0-36.5); MONO # 0.6 10^3/uL (0.0-0.8); MONO % 5.3 % (2.0-8.0); NEUTROPHILS # 8.5 10^3/uL (1.5-8.5); NEUTROPHILS % 73.7 % (36.0-66.0); PLATELET COUNT, AUTOMATED 272 10^3/uL (150-450); RED BLOOD COUNT 2.34 10^6/uL (4.00-5.40); WHITE BLOOD COUNT 11.6 10^3/uL (4.0-10.0)
[2021-07-20 07:45] LABS: HEMOGLOBIN 6.7 g/dl (12.0-15.5)
[2021-07-20 07:52] LABS: BLOOD UREA NITROGEN 18 MG/DL (7-18); C REACTIVE PROTEIN QUANTITATIV 8.89 MG/DL (0.00-0.30); CALCIUM LEVEL 7.6 MG/DL (8.8-10.2); CARBON DIOXIDE LEVEL 25 MEQ/L (21-32); CHLORIDE LEVEL 109 MEQ/L (98-107); CREATININE FOR GFR 0.84 MG/DL (0.55-1.30); GLOMERULAR FILTRATION RATE > 60.0 (>45); GLUCOSE, FASTING 215 MG/DL (70-100); SODIUM LEVEL 140 MEQ/L (136-145)
[2021-07-20] MEDS: HEPARIN SOD (PORCINE) 5000UNITS/ML 1ML VIAL/SYRINGE SC SCH ×2 (08:15→20:22)
[2021-07-20] MEDS: ASPIRIN 81MG ENTERIC TABLET PO SCH (08:15)
[2021-07-20] MEDS: LORATADINE 10 MG TAB PO SCH (08:15)
[2021-07-20] MEDS: OMEPRAZOLE 20 MG CAP PO SCH (08:15)
[2021-07-20] MEDS: HumaLOG INSULIN (NovoLOG) PER UNIT SC SCH ×4 (08:16→20:22)
--- NOTE | 2021-07-20 10:59 | ROOPDOC ---
[facility] Report Of Operation Report of Operation DATE OF PROCEDURE: 07/19/21 PREPROCEDURE DIAGNOSES: infected necrotic pressure wound sacrum (deep stage III ulcer). POSTPROCEDURE DIAGNOSES: Infected, necrotic pressure wound of sacrum and coccyx (stage IV Ulcer). PROCEDURE PERFORMED: Excisional debridement to healthy tissue, initial placement of wound vac negative pressure therapy. SURGEON: Abel Hernandez MD CIRCUIT BREAKER MECHANIC: ANESTHESIA: General endotracheal anesthesia. ESTIMATED BLOOD LOSS: Approximately 50 mL. COMPLICATIONS: None. REMARKS: Patient is a 61-year-old female with a history of fall, left femoral neck fracture status post ORIF roughly 3 weeks ago remaining bedridden. Baseline she has expressive aphasia, prior stroke and has developed a sacral wound. Unclear if this was present on admission. Initially I debrided this at the bedside. She is brought in today for further debridement of her sacral wound. FINDINGS: There is further progression of the soft tissue necrosis. Wound is debrided down to the surface/periosteum of the sacrum and coccyx. Wound dimension is 10 x 10 x 3 cm after debridement a black foam from the wound VAC was placed and this placed on continuous suction at 125 mmHg pressure. SPECIMENS REMOVED: Soft tissues. DESCRIPTION OF PROCEDURE: Consent is obtained via the paraprofessional interpreter via the telephone with the . She is already on IV antibiotics including vancomycin and meropenem and scheduled doses with the past 48 hours. She was brought to the operating room. General endotracheal anesthesia established. She was positioned prone on the procedure table with her pressure points padded. The skin of the buttocks was retracted with nylon tapes 4 better exposure. The sacral area, lower back and posterior thigh prepped with Betadine and sterile drapes placed. We paused for a surgical timeout using both pre-incision safety checklist to verify correct patient, procedure site and additional clinical information prior to beginning the procedure There is a small amount of progression of necrotic skin over the right lateral wall which I sharply excised with the scalpel. There is a lot more progression of the necrotic, macerated and liquefied adipose and soft tissue primarily on both lower portions of the wound and this was further debrided with Bovie cautery and there is obvious involvement of the muscle now with pale appearing ischemic muscle apparent especially in the lower lateral portion of the wound. I continued debriding this and this appears to encroach at the surface of periosteum of the sacrum with also the tip of the coccyx visible. A curette was then used to further debride the loose soft tissues. I also used the scratch pad as a curette to roughen up the surrounding soft tissues at the wall. I temporarily packed the wound for hemostasis and after washing the wound couple of times I sprayed Tisseel glue to the surface of the wound for adequate hemostasis. Further bleeding points were cauterized. The dimension wound after debridement is 10 x 10 x 3 cm depth there is minimal undermining of 4 the left lower and right lower portion of the wound but due to the looseness of her skin and soft tissue from what looks to be chronic weight loss, the undermining is moderately exaggerated. I placed 2 layers of black spiral foam and the wound was sealed with plastic sterile drapes. The lateral track was placed over on her left side. This was connected to the wound VAC machine at low continuous pressure at 110 5 mmHg. This is creating an adequate seal. Patient was transferred to her stretcher in supine position. She was promptly awakened, extubated and brought to recovery room in stable condition. ABEL HERNANDEZ MD Jul 20, 2021 10:59
[2021-07-20] MEDS ORDERED: VANCOMYCIN HCL 1,000 MG, VIAL MATE ADAPTER 1 EACH in NS 250 ML IV SCH (14:00)
--- NOTE | 2021-07-20 17:15 | IPNPDOC ---
Subjective Date Seen The patient was seen on 07/20/21. Subjective Chief Complaint/HPI Mrs. Pearson is a 61 year old female with expressive aphasia, CVA, DM type 2 here after left hip fracture 2/[address] uRsh performed left hip hemiarthroplasty with greater trochanteric open reduction and internal fixation on 06/26/2021. Patient was unable to work with PT due to language barrier, aphasia, and dementia. Therapy was discontinued, and she was pending placement. On 07/11/2021, Dr. Hernandez was consulted for sacral ulcer which he debrided. Then on 07/17/2021, patient spiked a fever. Infectious work-up initiated and patient started on Zosyn and Vanco. Procalcitonin increased from 0.15 to 2.87. Patient's last temperature was on 07/18/2021 (100.1). Yesterday, she had excisional debridement and wound vac placement. This morning, she appeared comfortable. Blood culture grew Enterobacter cloacae complex which is only resistant to cefazolin. Wound culture still pending. Objective Physical Examination General Exam: Positive: Alert Eye Exam: Negative: Sclera icteric Neck Exam: Positive: Supple Chest Exam: Positive: Clear to auscultation Heart Exam: Positive: Rate Normal, Regular Rhythm Abdomen Exam: Positive: Normal bowel sounds, Soft, Tenderness Extremity Exam: Negative: Edema Neuro Exam: Negative: Normal Speech (Unable to communicate) Psych Exam: Positive: Other (Unable to communicate, but appears normal) Assessment /Plan Assessment Mrs. Pearson is a 61 year old female with expressive aphasia, CVA, DM type 2 here after left hip fracture 2/[address] Rush performed left hip hemiarthroplasty with greater trochanteric open reduction and internal fixation on 06/26/2021. Patient was unable to work with PT due to language barrier, aphasia, and dementia. Therapy was discontinued, and she was pending placement. On 07/11/2021, Dr. Hernandez was consulted for sacral ulcer which he debrided. Then on 07/17/2021, patient spiked a fever. Infectious work-up initiated and patient started on Zosyn and Vanco. Procalcitonin increased from 0.15 to 2.87. Patient's blood culture demonstrates gram-negative rods. Most likely seeded from wound. Patient start on broad-spectrum antibiotics. Patient had debridement on 07/19/2021. Plan/VTE VTE Prophylaxis Ordered?: Yes Plan 1. Gram-negative bacteremia secondary to sacral wound Necrotic sacral wound was initially debrided on 07/11/[address] Hernandez Anticipate return to the OR for another debridement on 07/18/2021 Wound culture and blood culture both have gram-negative rods -Pending wound culture results Empirically on Zosyn and Vanco 2. Gram-negative sepsis Patient had fever and leukocytosis Procalcitonin elevated at 2.87 Zosyn and Vanco day 3 3. Femoral neck fracture Status post left hip hemiarthroplasty with greater trochanteric open reduction and internal fixation on 06/26/2021 4. Diabetes mellitus Continue basalbolus insulin 5. History of CVA Patient has residual left-sided weakness and aphasia MRI was done which demonstrated diffuse atrophy with ex vacuo dilatation of the ventricular system. Neurology team has a suspicion for severe frontotemporal dementia Can consider outpatient follow-up on discharge 6. COVID-19 positive Asymptomatic Patient completed quarantine 7. DVT prophylaxis Teds Disposition: Pending wound culture results VS, I&O, [facility]H, [facility] Vital Signs/I&O Vital Signs Date Time Temp Pulse Resp B/P (MAP) Pulse Ox O2 Delivery O2 Flow Rate FiO2 07/20/21 08:00 98.4 81 18 109/60 (76) 97 Room Air 07/19/21 21:00 2.0 I&O- Last 24 Hours up to 6 AM 07/20/21 06:00 Intake Total 1190 ml Output Total 375 ml Balance 815 ml Laboratory Data 24H LABS Laboratory Tests 2 07/19/21 12:53: Bedside Glucose (Misc Panel) 264H 07/19/21 13:20: Nucleated Red Blood Cells % (auto) 0.0 07/19/21 17:34: Bedside Glucose (Misc Panel) 274H 07/19/21 20:00: Bedside Glucose (Misc Panel) 293H 07/20/21 06:39: Immature Granulocyte % (Auto) 0.7, Neutrophils (%) (Auto) 73.7H, Lymphocytes (%) (Auto) 17.3L, Monocytes (%) (Auto) 5.3, Eosinophils (%) (Auto) 2.9, Basophils (%) (Auto) 0.1, Neutrophils # (Auto) 8.5, Lymphocytes # (Auto) 2.0, Monocytes # (Auto) 0.6, Eosinophils # (Auto) 0.3, Basophils # (Auto) 0.0, Nucleated Red Blood Cells % (auto) 0.0, Anion Gap 6L, Glomerular Filtration Rate > 60.0, Calcium Level 7.6L, C-Reactive Protein, Quantitative 8.89H, Procalcitonin 1.14 07/20/21 06:43: Bedside Glucose (Misc Panel) 212H CBC/BMP Laboratory Tests 07/19/21 13:20 07/20/21 06:39 Microbiology Microbiology 07/17/21 Gram Stain - Final, Resulted 07/17/21 Wound Culture, Resulted Pending 07/17/21 Urine Culture - Final, Complete 07/17/21 Blood Culture - Final, Complete Enterobacter Cloacae Complex 07/17/21 Blood Culture - Preliminary, Resulted No Growth after 48 hours. All Specime... DIMITRY LEÓN DO Jul 20, 2021 10:29
[2021-07-20] MEDS: ATORVASTATIN 20 MG TAB PO SCH (20:22)
[2021-07-20] MEDS: LEVEMIR (INSULIN DETEMIR) 1 UNITS/0.01ML SC SCH (20:27)
[2021-07-20 21:48] LABS: HEMATOCRIT 27.6 % (36.0-47.0); MEAN CORPUSCULAR HGB CONC 32.6 g/dl (32.0-36.5); PLATELET COUNT, AUTOMATED 281 10^3/uL (150-450); WHITE BLOOD COUNT 12.4 10^3/uL (4.0-10.0)
[2021-07-21] MEDS: PIPERACILLIN/TAZOBACTAM SOD 3.375 GM in D5W MINI-BAG PLUS 50 ML IV SCH ×3 (04:49→18:46)
[2021-07-21] MEDS: VANCOMYCIN HCL 1,000 MG, VIAL MATE ADAPTER 1 EACH in NS 250 ML IV SCH (05:57)
[2021-07-21 06:00] VITALS: BP 139/75
[2021-07-21 07:20] LABS: HEMOGLOBIN 9.4 g/dl (12.0-15.5); MEAN CORPUSCULAR HEMOGLOBIN 28.7 pg (27.0-33.0); MEAN CORPUSCULAR HGB CONC 32.4 g/dl (32.0-36.5); MEAN CORPUSCULAR VOLUME 88.4 fl (80.0-96.0); PLATELET COUNT, AUTOMATED 282 10^3/uL (150-450); RED BLOOD COUNT 3.28 10^6/uL (4.00-5.40); WHITE BLOOD COUNT 11.7 10^3/uL (4.0-10.0)
[2021-07-21 07:41] LABS: BLOOD UREA NITROGEN 10 MG/DL (7-18); C REACTIVE PROTEIN QUANTITATIV 6.31 MG/DL (0.00-0.30); CALCIUM LEVEL 7.8 MG/DL (8.8-10.2); CARBON DIOXIDE LEVEL 25 MEQ/L (21-32); CHLORIDE LEVEL 106 MEQ/L (98-107); CREATININE FOR GFR 0.61 MG/DL (0.55-1.30); GLOMERULAR FILTRATION RATE > 60.0 (>45); GLUCOSE, FASTING 195 MG/DL (70-100); POTASSIUM SERUM 4.1 MEQ/L (3.5-5.1); SODIUM LEVEL 138 MEQ/L (136-145)
[2021-07-21] MEDS: ACETAMINOPHEN TAB 650MG DOSE (2X325MG) PO PRN ×2 (09:55→21:14)
[2021-07-21] MEDS: OMEPRAZOLE 20 MG CAP PO SCH (09:55)
[2021-07-21] MEDS: HEPARIN SOD (PORCINE) 5000UNITS/ML 1ML VIAL/SYRINGE SC SCH ×2 (09:55→21:13)
[2021-07-21] MEDS: NS 1,000 ML IV SCH ×2 (09:56→18:28)
[2021-07-21] MEDS: ASPIRIN 81MG ENTERIC TABLET PO SCH (09:56)
[2021-07-21] MEDS: LORATADINE 10 MG TAB PO SCH (09:56)
[2021-07-21] MEDS: HumaLOG INSULIN (NovoLOG) PER UNIT SC SCH ×4 (09:57→21:00)
[2021-07-21 10:47] VITALS: BP 134/71
--- NOTE | 2021-07-21 12:39 | IPNPDOC ---
Subjective Date Seen The patient was seen on 07/21/21. Subjective Chief Complaint/HPI Mrs. Pearson is a 61 year old female with expressive aphasia, CVA, DM type 2 here after left hip fracture 2/[address] Rush performed left hip hemiarthroplasty with greater trochanteric open reduction and internal fixation on 06/26/2021. Patient was unable to work with PT due to language barrier, aphasia, and dementia. Therapy was discontinued, and she was pending placement. On 07/11/2021, Dr. Hernandez was consulted for sacral ulcer which he debrided. Then on 07/17/2021, patient spiked a fever. Infectious work-up initiated and patient started on Zosyn and Vanco. Procalcitonin increased from 0.15 to 2.87. Patient's last temperature was on 07/18/2021 (100.1). Patient's last debridement was on 07/19/2021. This morning, she appeared comfortable. Still non-verbal. Patient's wound culture grew multiple askew sensitive organisms and also grew the Enterobacter Cloacae Complex. CRP elevated, but down trending. Objective Physical Examination General Exam: Positive: Alert Eye Exam: Negative: Sclera icteric Neck Exam: Positive: Supple Chest Exam: Positive: Clear to auscultation Heart Exam: Positive: Rate Normal, Regular Rhythm Abdomen Exam: Positive: Normal bowel sounds, Soft, Tenderness Extremity Exam: Negative: Edema Neuro Exam: Negative: Normal Speech (Unable to communicate) Psych Exam: Positive: Other (Unable to communicate, but appears normal) Assessment /Plan Assessment Mrs. Pearson is a 61 year old female with expressive aphasia, CVA, DM type 2 here after left hip fracture 2/[address] Rush performed left hip hemiarthroplasty with greater trochanteric open reduction and internal fixation on 06/26/2021. Patient was unable to work with PT due to language barrier, aphasia, and dementia. Therapy was discontinued, and she was pending placement. On 07/11/2021, Dr. Hernandez was consulted for sacral ulcer which he debrided. Then on 07/17/2021, patient spiked a fever. Infectious work-up initiated and patient started on Zosyn and Vanco. Procalcitonin increased from 0.15 to 2.87. Patient's blood culture demonstrates gram-negative rods. Most likely seeded from wound. Patient start on broad-spectrum antibiotics. Patient had debridement on 07/19/2021. Plan/VTE VTE Prophylaxis Ordered?: Yes Plan 1. Gram-negative bacteremia secondary to sacral wound Necrotic sacral wound was initially debrided on 07/11/[address] Heranndez. Another debridement with wound vac on 07/19/2021 Wound culture and blood culture both have gram-negative rods -Pending wound culture results Empirically on Zosyn and Vanco 2. Gram-negative sepsis Patient had fever and leukocytosis Procalcitonin elevated at 2.87 Zosyn and Vanco day 4 3. Femoral neck fracture Status post left hip hemiarthroplasty with greater trochanteric open reduction and internal fixation on 06/26/2021 4. Diabetes mellitus Continue basalbolus insulin 5. History of CVA Patient has residual left-sided weakness and aphasia MRI was done which demonstrated diffuse atrophy with ex vacuo dilatation of the ventricular system. Neurology team has a suspicion for severe frontotemporal dementia Can consider outpatient follow-up on discharge 6. COVID-19 positive Asymptomatic Patient completed quarantine 7. DVT prophylaxis Teds Disposition: Patient will need placement. Will order procalcitonin to evaluate if we can start de-escalating antibiotics. VS, I&O, 24H, Fishbone Vital Signs/I&O Vital Signs Date Time Temp Pulse Resp B/P (MAP) Pulse Ox O2 Delivery O2 Flow Rate FiO2 07/21/21 10:47 98.3 72 18 134/71 (92) 97 Room Air 07/20/21 14:30 97.0 I&O- Last 24 Hours up to 6 AM 07/21/21 06:00 Intake Total 850 ml Output Total 550 ml Balance 300 ml Laboratory Data 24H LABS Laboratory Tests 2 07/20/21 16:58: Bedside Glucose (Misc Panel) 157H 07/20/21 20:19: Bedside Glucose (Misc Panel) 207H 07/20/21 21:25: Nucleated Red Blood Cells % (auto) 0.0 07/21/21 07:01: Nucleated Red Blood Cells % (auto) 0.0, Anion Gap 7L, Glomerular Filtration Rate > 60.0, Calcium Level 7.8L, C-Reactive Protein, Quantitative 6.31H 07/21/21 11:40: Bedside Glucose (Misc Panel) 209H CBC/BMP Laboratory Tests 07/20/21 21:25 07/21/21 07:01 Microbiology Microbiology 07/17/21 Gram Stain - Final, Resulted 07/17/21 Wound Culture - Preliminary, Resulted Corynebacterium Species Enterococcus Faecalis Streptococcus Mitis Streptococcus Group G Escherichia Coli Enterobacter Cloacae Complex 07/17/21 Urine Culture - Final, Complete 07/17/21 Blood Culture - Preliminary, Resulted Enterobacter Cloacae Complex 07/17/21 Blood Culture - Preliminary, Resulted No Growth after 72 hours. All specime... DIMITRY LEÓN DO Jul 21, 2021 12:39
[2021-07-21 14:00] VITALS: BP 122/64
[2021-07-21 17:58] VITALS: BP 139/74
[2021-07-21] MEDS: LEVEMIR (INSULIN DETEMIR) 1 UNITS/0.01ML SC SCH (21:13)
[2021-07-21] MEDS: ATORVASTATIN 20 MG TAB PO SCH (21:13)
[2021-07-21] MEDS ORDERED: VANCOMYCIN HCL 1,000 MG, VIAL MATE ADAPTER 1 EACH in NS 250 ML IV SCH (22:00)
[2021-07-22] MEDS: PIPERACILLIN/TAZOBACTAM SOD 3.375 GM in D5W MINI-BAG PLUS 50 ML IV SCH ×4 (00:17→17:53)
[2021-07-22 06:00] VITALS: BP 155/86
[2021-07-22 07:02] LABS: HEMATOCRIT 31.8 % (36.0-47.0); HEMOGLOBIN 10.3 g/dl (12.0-15.5); MEAN CORPUSCULAR HEMOGLOBIN 28.7 pg (27.0-33.0); MEAN CORPUSCULAR HGB CONC 32.4 g/dl (32.0-36.5); MEAN CORPUSCULAR VOLUME 88.6 fl (80.0-96.0); PLATELET COUNT, AUTOMATED 330 10^3/uL (150-450); RED BLOOD COUNT 3.59 10^6/uL (4.00-5.40); WHITE BLOOD COUNT 13.1 10^3/uL (4.0-10.0)
[2021-07-22 07:27] LABS: BLOOD UREA NITROGEN 8 MG/DL (7-18); C REACTIVE PROTEIN QUANTITATIV 4.18 MG/DL (0.00-0.30); CALCIUM LEVEL 7.8 MG/DL (8.8-10.2); CARBON DIOXIDE LEVEL 26 MEQ/L (21-32); CHLORIDE LEVEL 104 MEQ/L (98-107); CREATININE FOR GFR 0.66 MG/DL (0.55-1.30); GLOMERULAR FILTRATION RATE > 60.0 (>45); GLUCOSE, FASTING 197 MG/DL (70-100); POTASSIUM SERUM 4.6 MEQ/L (3.5-5.1); SODIUM LEVEL 136 MEQ/L (136-145)
[2021-07-22] MEDS: LORATADINE 10 MG TAB PO SCH (08:43)
[2021-07-22] MEDS: HumaLOG INSULIN (NovoLOG) PER UNIT SC SCH ×4 (08:43→21:31)
[2021-07-22] MEDS: ASPIRIN 81MG ENTERIC TABLET PO SCH (08:43)
[2021-07-22] MEDS: OMEPRAZOLE 20 MG CAP PO SCH (08:44)
[2021-07-22] MEDS: HEPARIN SOD (PORCINE) 5000UNITS/ML 1ML VIAL/SYRINGE SC SCH ×2 (08:44→21:31)
[2021-07-22] MEDS: VANCOMYCIN HCL 750 MG, VIAL MATE ADAPTER 1 EACH in NS 250 ML IV SCH ×2 (10:35→22:08)
[2021-07-22] MEDS: NS 1,000 ML IV SCH (12:05)
--- NOTE | 2021-07-22 12:29 | IPNPDOC ---
Subjective Date Seen The patient was seen on 07/22/21. Subjective Chief Complaint/HPI Mrs. Pearson is a 61 year old female with expressive aphasia, CVA, DM type 2 here after left hip fracture 2/[address] Rush performed left hip hemiarthroplasty with greater trochanteric open reduction and internal fixation on 06/26/2021. Patient was unable to work with PT due to language barrier, aphasia, and dementia. Therapy was discontinued, and she was pending placement. On 07/11/2021, Dr. Hernandez was consulted for sacral ulcer which he debrided. Then on 07/17/2021, patient spiked a fever. Infectious work-up initiated and patient started on Zosyn and Vanco. Procalcitonin increased from 0.15 to 2.87. Patient was started on broad spectrum antibiotics. Patient's last debridement was on 07/19/2021. Patient's last temperature was on 07/18/2021 (100.1). This morning, she appeared comfortable. Her labs are improving. CRP and procalcitonin down trending. Objective Physical Examination General Exam: Positive: Alert Eye Exam: Negative: Sclera icteric Neck Exam: Positive: Supple Chest Exam: Positive: Clear to auscultation Heart Exam: Positive: Rate Normal, Regular Rhythm Abdomen Exam: Positive: Normal bowel sounds, Soft Extremity Exam: Negative: Edema Neuro Exam: Negative: Normal Speech (Unable to communicate) Psych Exam: Positive: Other (Unable to communicate) Assessment /Plan Assessment Mrs. Pearson is a 61 year old female with expressive aphasia, CVA, DM type 2 here after left hip fracture 2/[address] Rush performed left hip hemiarthroplasty with greater trochanteric open reduction and internal fixation on 06/26/2021. Patient was unable to work with PT due to language barrier, aphasia, and dementia. Therapy was discontinued, and she was pending placement. On 07/11/2021, Dr. Hernandez was consulted for sacral ulcer which he debrided. Then on 07/17/2021, patient spiked a fever. Infectious work-up initiated and patient started on Zosyn and Vanco. Procalcitonin increased from 0.15 to 2.87. Patient's blood culture demonstrates gram-negative rods. Most likely seeded from wound. Patient start on broad-spectrum antibiotics. Patient had debridement on 07/19/2021. Patient's wound grew Corynebacterium species, Enterococcus facalis, Streptococcus mitis, Streptococcus group G, E.coli, and Enterobacter cloacae complex. All generally pansensitive. Only the Enterobacter cloacae complex was in the blood, but blood culture still preliminary. Will wait for blood culture to finalize. Plan/VTE VTE Prophylaxis Ordered?: Yes Plan 1. Gram-negative bacteremia secondary to sacral wound Necrotic sacral wound was initially debrided on 07/11/[address] Hernandez. Another debridement with wound vac on 07/19/2021 Wound culture and blood culture both have gram-negative rods. Blood culture has not finalized. -Pending finalized blood culture results Empirically on Zosyn and Vanco 2. Gram-negative sepsis Patient had fever and leukocytosis Procalcitonin elevated at 2.87 Zosyn and Vanco day 5 3. Femoral neck fracture Status post left hip hemiarthroplasty with greater trochanteric open reduction and internal fixation on 06/26/2021 4. Diabetes mellitus Continue basalbolus insulin 5. History of CVA Patient has residual left-sided weakness and aphasia MRI was done which demonstrated diffuse atrophy with ex vacuo dilatation of the ventricular system. Neurology team has a suspicion for severe frontotemporal dementia Can consider outpatient follow-up on discharge 6. COVID-19 positive Asymptomatic Patient completed quarantine 7. DVT prophylaxis Teds Disposition: Patient will need placement. Blood culture has not yet finalized. Will wait for blood culture finalization to de-escalate antibiotics. VS, I&O, 24H, Fishbone Vital Signs/I&O Vital Signs Date Time Temp Pulse Resp B/P (MAP) Pulse Ox O2 Delivery O2 Flow Rate FiO2 07/22/21 06:00 97.3 74 18 155/86 (109) 98 Nasal Cannula 2.0 I&O- Last 24 Hours up to 6 AM 07/22/21 06:00 Intake Total 840 ml Output Total 3950 ml Balance -3110 ml Laboratory Data 24H LABS Laboratory Tests 2 07/21/21 16:20: Bedside Glucose (Misc Panel) 156H 07/21/21 17:44: Vancomycin Level Trough 20.8H 07/21/21 20:57: Bedside Glucose (Misc Panel) 171H 07/22/21 06:03: Nucleated Red Blood Cells % (auto) 0.0, Anion Gap 6L, Glomerular Filtration Rate > 60.0, Calcium Level 7.8L, C-Reactive Protein, Quantitative 4.18H, Procalcitonin 0.41 07/22/21 08:53: Vancomycin Level Trough 20.2H 07/22/21 11:53: Bedside Glucose (Misc Panel) 269H CBC/BMP Laboratory Tests 07/22/21 06:03 Microbiology Microbiology 07/17/21 Gram Stain - Final, Resulted 07/17/21 Wound Culture - Preliminary, Resulted Corynebacterium Species Enterococcus Faecalis Streptococcus Mitis Streptococcus Group G Escherichia Coli Enterobacter Cloacae Complex 07/17/21 Urine Culture - Final, Complete 07/17/21 Blood Culture - Preliminary, Resulted Enterobacter Cloacae Complex 07/17/21 Blood Culture - Preliminary, Resulted No Growth after 72 hours. All specime... DIMITRY LEÓN DO Jul 22, 2021 12:29
[2021-07-22] MEDS: ATORVASTATIN 20 MG TAB PO SCH (21:30)
[2021-07-22] MEDS: ACETAMINOPHEN TAB 650MG DOSE (2X325MG) PO PRN (21:31)
[2021-07-22] MEDS: LEVEMIR (INSULIN DETEMIR) 1 UNITS/0.01ML SC SCH (21:32)
[2021-07-23] MEDS: PIPERACILLIN/TAZOBACTAM SOD 3.375 GM in D5W MINI-BAG PLUS 50 ML IV SCH ×5 (00:24→23:55)
[2021-07-23 06:00] VITALS: BP 138/79
[2021-07-23 06:36] LABS: HEMOGLOBIN 10.6 g/dl (12.0-15.5); MEAN CORPUSCULAR HEMOGLOBIN 28.8 pg (27.0-33.0); MEAN CORPUSCULAR HGB CONC 32.1 g/dl (32.0-36.5); MEAN CORPUSCULAR VOLUME 89.7 fl (80.0-96.0); PLATELET COUNT, AUTOMATED 379 10^3/uL (150-450); RED BLOOD COUNT 3.68 10^6/uL (4.00-5.40); WHITE BLOOD COUNT 14.3 10^3/uL (4.0-10.0)
[2021-07-23 07:06] LABS: BLOOD UREA NITROGEN 10 MG/DL (7-18); C REACTIVE PROTEIN QUANTITATIV 2.93 MG/DL (0.00-0.30); CARBON DIOXIDE LEVEL 27 MEQ/L (21-32); CHLORIDE LEVEL 105 MEQ/L (98-107); CREATININE FOR GFR 0.67 MG/DL (0.55-1.30); GLOMERULAR FILTRATION RATE > 60.0 (>45); GLUCOSE, FASTING 245 MG/DL (70-100); POTASSIUM SERUM 4.7 MEQ/L (3.5-5.1); SODIUM LEVEL 138 MEQ/L (136-145)
[2021-07-23] MEDS: OMEPRAZOLE 20 MG CAP PO SCH (08:44)
[2021-07-23] MEDS: ASPIRIN 81MG ENTERIC TABLET PO SCH (08:44)
[2021-07-23] MEDS: LORATADINE 10 MG TAB PO SCH (08:44)
[2021-07-23] MEDS: HumaLOG INSULIN (NovoLOG) PER UNIT SC SCH ×4 (08:45→21:00)
[2021-07-23] MEDS: HEPARIN SOD (PORCINE) 5000UNITS/ML 1ML VIAL/SYRINGE SC SCH ×2 (08:45→22:07)
[2021-07-23] MEDS: VANCOMYCIN HCL 750 MG, VIAL MATE ADAPTER 1 EACH in NS 250 ML IV SCH (10:11)
--- NOTE | 2021-07-23 15:41 | IPNPDOC ---
Text Note Date of Service The patient was seen on 07/23/21. NOTE SUBJECTIVE: -No acute events OBJECTIVE: Vitals: see below General Exam: Alert, NAD Eyes: Sclera anicteric, EOMI Neck: Supple, no JVD Chest: Clear to auscultation, breathing comfortably on room air Heart: Rate Normal, Regular Rhythm, no m/r/g Abdomen: Normal bowel sounds, Soft, no grimacing on palpation Extremities: No edema Psych Exam: Nonverbal on exam Labs: WBC 14.3 hgb 10.6 Platelets 379 Na 138 K 4.7 Cr 0.67 Assessment: 61 year old W with expressive aphasia, CVA, DM type 2 here after left hip fracture 2/[address] Rush performed left hip hemiarthroplasty with greater trochanteric open reduction and internal fixation on 06/26/2021, and postop was unable to participate in PT due to language barrier, aphasia, and dementia, and course was c/b gram negative bacteremia 2/2 sacral ulcer and on 07/11/2021 had sacral debridement by Dr. Hernandez with wound growing Corynebacterium species, Enterococcus facalis, Streptococcus mitis, Streptococcus group G, E.coli, and Enterobacter cloacae complex. All generally pansensitive. Only the Enterobacter cloacae complex was in the blood, but blood culture still preliminary. For now continues on vanc/piptazo. 1. Gram-negative bacteremia secondary to sacral wound Necrotic sacral wound was initially debrided on 07/11/[address] Hernandez. Another debridement with wound vac on 07/19/2021 Wound culture and blood culture both have gram-negative rods. Blood culture has not finalized. -Pending finalized blood culture results Empirically on Zosyn, day 6. Will dc vanc 2. Gram-negative sepsis: resolved Zosyn day 6, dc vanc 3. Femoral neck fracture Status post left hip hemiarthroplasty with greater trochanteric open reduction and internal fixation on 06/26/2021 4. Diabetes mellitus Continue basalbolus insulin 5. History of CVA Patient has residual left-sided weakness and aphasia MRI was done which demonstrated diffuse atrophy with ex vacuo dilatation of the ventricular system. Neurology team has a suspicion for severe frontotemporal dementia Can consider outpatient follow-up on discharge 6. COVID-19 positive Asymptomatic Patient completed quarantine 7. DVT prophylaxis Teds Disposition: Patient will need placement. VS,Fishbone, I+O VS, Fishbone, I+O Laboratory Tests 07/23/21 06:01 Vital Signs Date Time Temp Pulse Resp B/P (MAP) Pulse Ox O2 Delivery O2 Flow Rate FiO2 07/23/21 06:00 98.1 84 18 138/79 (98) 99 07/22/21 06:00 Nasal Cannula 2.0 I&O- Last 24 Hours up to 6 AM 07/23/21 06:00 Intake Total 3430 ml Output Total 1325 ml Balance 2105 ml GOYO MIRELES MD Jul 23, 2021 10:09
[2021-07-23] MEDS ORDERED: LEVEMIR (INSULIN DETEMIR) 1 UNITS/0.01ML SC SCH ×2 (21:00)
[2021-07-23 22:00] VITALS: BP 129/68
[2021-07-23] MEDS: ATORVASTATIN 20 MG TAB PO SCH (22:07)
[2021-07-23] MEDS: ACETAMINOPHEN TAB 650MG DOSE (2X325MG) PO PRN (22:07)
[2021-07-24] MEDS: PIPERACILLIN/TAZOBACTAM SOD 3.375 GM in D5W MINI-BAG PLUS 50 ML IV SCH ×4 (05:00→22:54)
[2021-07-24 06:00] VITALS: BP 108/69
[2021-07-24 06:34] LABS: HEMATOCRIT 34.5 % (36.0-47.0); MEAN CORPUSCULAR HEMOGLOBIN 28.6 pg (27.0-33.0); MEAN CORPUSCULAR HGB CONC 31.9 g/dl (32.0-36.5); MEAN CORPUSCULAR VOLUME 89.8 fl (80.0-96.0); PLATELET COUNT, AUTOMATED 420 10^3/uL (150-450); RED BLOOD COUNT 3.84 10^6/uL (4.00-5.40); WHITE BLOOD COUNT 16.2 10^3/uL (4.0-10.0)
[2021-07-24 06:54] LABS: BLOOD UREA NITROGEN 11 MG/DL (7-18); C REACTIVE PROTEIN QUANTITATIV 3.44 MG/DL (0.00-0.30); CALCIUM LEVEL 8.3 MG/DL (8.8-10.2); CARBON DIOXIDE LEVEL 25 MEQ/L (21-32); CHLORIDE LEVEL 104 MEQ/L (98-107); CREATININE FOR GFR 0.64 MG/DL (0.55-1.30); GLOMERULAR FILTRATION RATE > 60.0 (>45); GLUCOSE, FASTING 220 MG/DL (70-100); POTASSIUM SERUM 3.4 MEQ/L (3.5-5.1); SODIUM LEVEL 137 MEQ/L (136-145)
[2021-07-24] MEDS: LORATADINE 10 MG TAB PO SCH (08:31)
[2021-07-24] MEDS: OMEPRAZOLE 20 MG CAP PO SCH (08:32)
[2021-07-24] MEDS: HumaLOG INSULIN (NovoLOG) PER UNIT SC SCH ×4 (08:32→20:12)
[2021-07-24] MEDS: ASPIRIN 81MG ENTERIC TABLET PO SCH (08:32)
[2021-07-24] MEDS: HEPARIN SOD (PORCINE) 5000UNITS/ML 1ML VIAL/SYRINGE SC SCH ×2 (09:15→20:31)
[2021-07-24] MEDS: LEVEMIR (INSULIN DETEMIR) 1 UNITS/0.01ML SC SCH ×2 (09:50→20:31)
[2021-07-24] MEDS ORDERED: E-Z-PAQUE 96% w/w SUSP 176GM BTL As Ordered ONE (11:40)
[2021-07-24] MEDS ORDERED: VARIBAR PUDDING 40% w/v 230ML TUBE As Ordered ONE (11:40)
[2021-07-24] MEDS ORDERED: VARIBAR NECTAR 40% w/v 240ML SUSP BTL As Ordered ONE (11:40)
[2021-07-24] MEDS ORDERED: BARIUM SULFATE 700 MG TABLET (E-Z-DISK) As Ordered ONE (11:41)
[2021-07-24 14:00] VITALS: BP 114/73
--- NOTE | 2021-07-24 14:19 | IPNPDOC ---
Text Note Date of Service The patient was seen on 07/24/21. NOTE SUBJECTIVE: -No acute events -Was seen by Dr. Hernandez this AM who did some bedside debridement and reinforced wound vac OBJECTIVE: Vitals: see below General Exam: Alert, NAD Eyes: Sclera anicteric, EOMI Neck: Supple, no JVD Chest: Clear to auscultation, breathing comfortably on room air Heart: Rate Normal, Regular Rhythm, no m/r/g Abdomen: Normal bowel sounds, Soft, no grimacing on palpation Extremities: No edema Psych Exam: Nonverbal on exam Labs: WBC 16.2 hgb 11 K 3.4 Cr 0.64 Assessment: 61 year old W with expressive aphasia, CVA, DM type 2 here after left hip frac ture 2/[address] Rush performed left hip hemiarthroplasty with greater trochanteric open reduction and internal fixation on 06/26/2021, and postop was unable to participate in PT due to language barrier, aphasia, and dementia, and course was c/b gram negative bacteremia 2/2 sacral ulcer and on 07/11/2021 had sacral debridement by Dr. Hernandez with wound growing Corynebacterium species, Enterococcus facalis, Streptococcus mitis, Streptococcus group G, E.coli, and Enterobacter cloacae complex. All generally pansensitive. Only the Enterobacter cloacae complex was in the blood, but blood culture still preliminary. For now continues on piptazo. 1. Gram-negative bacteremia secondary to sacral wound Necrotic sacral wound was initially debrided on 07/11/[address] Hernandez. An other debridement with wound vac on 07/19/2021 Wound culture and blood culture both have gram-negative rods. Blood culture has not finalized. -Pending finalized blood culture results Empirically on Zosyn, day 7. 2. Gram-negative sepsis: resolved Zosyn day 7 3. Femoral neck fracture Status post left hip hemiarthroplasty with greater trochanteric open reduction and internal fixation on 06/26/2021 4. Diabetes mellitus Continue basalbolus insulin 5. History of CVA Patient has residual left-sided weakness and aphasia MRI was done which demonstrated diffuse atrophy with ex vacuo dilatation of the ventricular system. Neurology team has a suspicion for severe frontotemporal dementia Can consider outpatient follow-up on discharge 6. COVID-19 positive Asymptomatic Patient completed quarantine 7. DVT prophylaxis Teds Disposition: Patient will need placement. VS,Fishbone, I+O VS, Fishbone, I+O Laboratory Tests 07/24/21 06:02 Vital Signs Date Time Temp Pulse Resp B/P (MAP) Pulse Ox O2 Delivery O2 Flow Rate FiO2 07/24/21 06:00 98.2 92 18 108/69 (82) 94 Nasal Cannula 07/22/21 06:00 2.0 I&O- Last 24 Hours up to 6 AM 07/24/21 06:00 Intake Total 1540 ml Output Total 2250 ml Balance -710 ml GOYO MIRELES MD Jul 24, 2021 14:19
[2021-07-24] MEDS ORDERED: POTASSIUM CHLORIDE 10MEQ SR TABLET PO ONE (15:00)
[2021-07-24] MEDS ORDERED: NS 1,000 ML IV ONE (19:40)
--- NOTE | 2021-07-24 19:46 | REP ---
INDICATION: swallow eval. COMPARISON: NONE TECHNIQUE: The procedure was performed under the direct supervision of . The procedure was performed with Anita Gr from speech pathology present. 1.4 minutes of fluoroscopy time was utilized for this procedure. FINDINGS: 5 cc aliquots of nectar, thin and pudding consistency barium was administered. With nectar consistency barium there is laryngeal penetration. With thin consistency barium through the straw there is aspiration without cough response. IMPRESSION: With nectar consistency barium there is laryngeal penetration. With thin consistency barium through a straw there is aspiration without cough response. A detailed report of this examination will be provided by speech pathology. <Electronically signed by Bandar Fajardo > 07/24/21 1446 <Electronically signed by Peter Young > 07/24/21 194
[2021-07-24] MEDS: ATORVASTATIN 20 MG TAB PO SCH (20:30)
[2021-07-25] MEDS: PIPERACILLIN/TAZOBACTAM SOD 3.375 GM in D5W MINI-BAG PLUS 50 ML IV SCH (05:56)
[2021-07-25 06:00] VITALS: BP 127/78
[2021-07-25] MEDS: LevoFLOXacin 750 MG TABLET PO SCH (06:00)
[2021-07-25] MEDS: HumaLOG INSULIN (NovoLOG) PER UNIT SC SCH ×4 (07:30→20:59)
[2021-07-25 07:57] LABS: CALCIUM LEVEL 8.7 MG/DL (8.8-10.2); CREATININE FOR GFR 1.02 MG/DL (0.55-1.30); GLOMERULAR FILTRATION RATE 58.3 (>45); POTASSIUM SERUM 4.3 MEQ/L (3.5-5.1)
[2021-07-25 08:00] VITALS: BP 117/72
[2021-07-25] MEDS: OMEPRAZOLE 20 MG CAP PO SCH (10:19)
[2021-07-25] MEDS: ASPIRIN 81MG ENTERIC TABLET PO SCH (10:19)
[2021-07-25] MEDS: HEPARIN SOD (PORCINE) 5000UNITS/ML 1ML VIAL/SYRINGE SC SCH ×2 (10:19→22:04)
[2021-07-25] MEDS: LEVEMIR (INSULIN DETEMIR) 1 UNITS/0.01ML SC SCH ×2 (10:19→22:04)
[2021-07-25] MEDS: LORATADINE 10 MG TAB PO SCH (10:20)
[2021-07-25] MEDS ORDERED: CLINDAMYCIN 150MG CAPSULE PO SCH (12:00)
[2021-07-25 14:00] VITALS: BP 112/68
[2021-07-25] MEDS ORDERED: LIDOCAINE W/EPINEPHRINE 1% 20ML VIAL SC ONE (14:00)
--- NOTE | 2021-07-25 19:26 | CR ---
ADVANCED WOUND CARE CONSULTATION DATE: 07/25/2021 REQUESTING PHYSICIAN: Dr. Wayne Mejia CONSULTING PHYSICIAN: Dr. Marcin Lunsford HISTORY OF PRESENT ILLNESS: I discussed the case with the referring physician via telephone as the initial advanced wound care consult has been canceled. Apparently the patient was admitted with a hip fracture, has developed an extensive sacral pressure injury which is now being treated with a wound VAC. According to Dr. Mejia, the patient is declining significantly in health, is an uncontrolled diabetic and according to the 's wish, he does not wish to pursue any more advanced treatments and wishes to take his home. They are considering hospice and for all of the above reasons, no wound care consult will be performed and in addition with a wound VAC in place, the wound could not be visualized. PARMJIT
[2021-07-25 20:03] VITALS: BP 115/72
[2021-07-25] MEDS: ATORVASTATIN 20 MG TAB PO SCH (22:05)
[2021-07-26] MEDS: LevoFLOXacin 750 MG TABLET PO SCH (05:27)
[2021-07-26 05:35] VITALS: BP 112/71
[2021-07-26] MEDS ORDERED: NS 1,000 ML IV ONE ×3 (05:50→15:30)
[2021-07-26] MEDS: ACETAMINOPHEN TAB 650MG DOSE (2X325MG) PO PRN (06:00)
[2021-07-26] MEDS ORDERED: ISOVUE-370 76% 100ML VIAL As Ordered ONE (06:35)
[2021-07-26] MEDS ORDERED: SODIUM CHLORIDE 0.9% 1000ML IV STA (06:59)
[2021-07-26] MEDS ORDERED: VANCOMYCIN HCL 1,000 MG, VIAL MATE ADAPTER 1 EACH in NS 250 ML IV SCH (07:00)
[2021-07-26] MEDS: HumaLOG INSULIN (NovoLOG) PER UNIT SC SCH ×4 (07:30→20:31)
[2021-07-26 07:38] LABS: HEMATOCRIT 32.1 % (36.0-47.0); HEMOGLOBIN 10.1 g/dl (12.0-15.5); MEAN CORPUSCULAR HEMOGLOBIN 28.9 pg (27.0-33.0); MEAN CORPUSCULAR HGB CONC 31.5 g/dl (32.0-36.5); PLATELET COUNT, AUTOMATED 535 10^3/uL (150-450); RED BLOOD COUNT 3.49 10^6/uL (4.00-5.40)
--- NOTE | 2021-07-26 07:45 | REP ---
INDICATION: fever, hypoxia COMPARISON: 07/17/2021 TECHNIQUE: Portable AP view of the chest FINDINGS: Bibasilar opacities (right greater than left) include elements of atelectasis/airspace disease and suspected small to moderate right effusion. IMPRESSION: Acute bibasilar opacities (right greater than left). Suggesting atelectasis and right effusion. <Electronically signed by Nicolas Ryees > 07/26/21 0742
--- NOTE | 2021-07-26 07:47 | REP ---
INDICATION: fever, distended, firm abdomen COMPARISON: None. TECHNIQUE: Two portable supine views of the abdomen and pelvis. FINDINGS: Significant fecal stasis and presumed constipation/ileus is suggested. Less likely large bowel obstruction cannot be excluded. IMPRESSION: Limited examination demonstrating significant suspected fecal stasis and constipation/ileus. Less likely, large bowel obstruction cannot be excluded. Close clinical observation and follow-up radiographs may be warranted. <Electronically signed by Nicolas Reyes > 07/26/21 0784
[2021-07-26 08:01] LABS: CALCIUM LEVEL 8.1 MG/DL (8.8-10.2); CREATININE FOR GFR 2.39 MG/DL (0.55-1.30); GLOMERULAR FILTRATION RATE 21.8 (>45); MAGNESIUM LEVEL 2.4 MG/DL (1.8-2.4); POTASSIUM SERUM 4.1 MEQ/L (3.5-5.1)
[2021-07-26 08:51] LABS: LYMPHOCYTES 8 % (16-44); MONOCYTES 5 % (0-5); NEUTROPHILS 83 % (28-66); PLATELET ESTIMATE INCREASED (NORMAL)
[2021-07-26 08:52] LABS: ANISOCYTOSIS 1+
[2021-07-26] MEDS: OMEPRAZOLE 20 MG CAP PO SCH (09:00)
[2021-07-26] MEDS: LORATADINE 10 MG TAB PO SCH (09:00)
[2021-07-26] MEDS: ASPIRIN 81MG ENTERIC TABLET PO SCH (09:00)
--- NOTE | 2021-07-26 09:41 | REP ---
INDICATION: sepsis. COMPARISON: Radiograph 07/26/2021. TECHNIQUE: CT chest performed without the use of intravenous contrast. Sagittal and coronal reconstruction images are performed. FINDINGS: Lungs: There is moderate consolidative infiltrate or atelectasis in both lower lobes, and mild atelectasis or infiltrate in the right middle lobe and lingula. Mediastinum: No gross adenopathy. Saida: No gross adenopathy. Axilla: No gross adenopathy. Pleura: There are small bilateral pleural effusions right greater than left. Heart: Not enlarged. Thoracic aorta: No aneurysm. Upper abdominal structures: There is a small hiatal hernia. Visualized osseous structures: There are mild degenerative changes of the spine without compression deformity. IMPRESSION: There is moderate consolidative infiltrate or atelectasis in both lower lobes, and mild atelectasis or infiltrate in the right middle lobe and lingula. There are small bilateral pleural effusions right greater than left. <Electronically signed by Peter Young > 07/26/21 0938
[2021-07-26 09:59] LABS: VANCOMYCIN RANDOM 6.3 UG/ML
--- NOTE | 2021-07-26 09:59 | REP ---
INDICATION: sepsis COMPARISON: None. TECHNIQUE: CT Scan of the abdomen and pelvis was performed without intravenous contrast. Sagittal and coronal reconstruction images performed. FINDINGS: Lung bases: Please see today's chest CT report.. Liver: Grossly unremarkable. Gallbladder: Tiny calcifications in the region of the gallbladder likely represent stones within a collapsed gallbladder.. Spleen: Grossly unremarkable. Adrenals: Normal. Pancreas: Grossly unremarkable.. Kidneys: No hydronephrosis or nephrolithiasis. Ureters demonstrate no dilatation or calculus. There is a 1 cm cyst of the lower pole the right kidney. Small and large bowel: There is a very large amount of fecal material in the rectum compatible with fecal impaction. There is a very large amount of fecal material throughout the remainder of the colon, which is significantly dilated diffusely. The diameter of the cecum reaches 11.2 cm. There is no small bowel dilatation. Free fluid: There is trace free fluid scattered in the abdomen and pelvis. There is no free air. Abdominal aorta: No aneurysm. Adenopathy: None. Appendix: Not inflamed. Osseous structures: There is a left hip prosthesis with associated streak artifact, somewhat limiting evaluation of surrounding structures.. There are mild degenerative changes of the spine without compression deformity Pelvis: Uterus appears bulky with calcifications, compatible with a fibroid uterus. An adjacent adnexal mass cannot be excluded. There is a Bansal catheter within a collapsed urinary bladder. There is a left sacral decubitus ulcer. IMPRESSION: There is a very large amount of fecal material in the rectum compatible with fecal impaction. There is a very large amount of fecal material throughout the remainder of the colon, which is significantly dilated diffusely. The diameter of the cecum reaches 11.2 cm. There is no small bowel dilatation. Very mild scattered free fluid. No free air. Probable tiny stones in a collapsed gallbladder. Bulky uterus containing calcifications likely representing a fibroid uterus. Without oral and IV contrast, adnexal regions are not well evaluated for underlying adnexal mass. There is a left sacral decubitus ulcer with no visible fluid collection at that location. <Electronically signed by Peter Young > 07/26/21 [id number]
[2021-07-26] MEDS: CEFEPIME HCL 2 GM in D5W MINI-BAG PLUS 50 ML IV SCH ×2 (10:06→20:26)
[2021-07-26] MEDS: HEPARIN SOD (PORCINE) 5000UNITS/ML 1ML VIAL/SYRINGE SC SCH ×2 (10:07→20:26)
[2021-07-26] MEDS: LEVEMIR (INSULIN DETEMIR) 1 UNITS/0.01ML SC SCH ×2 (10:13→20:27)
[2021-07-26] MEDS ORDERED: VANCOMYCIN HCL 750 MG, VIAL MATE ADAPTER 1 EACH in NS 250 ML IV SCH (11:00)
[2021-07-26] MEDS ORDERED: LACTULOSE 20 GM/30 ML SYRUP UD PO ONE (11:30)
--- NOTE | 2021-07-26 13:14 | IPNPDOC ---
Text Note Date of Service The patient was seen on 07/26/21. NOTE Subjective: Patient developed fever overnight with fever 102.2. I talked to her and updated him about constipation. Her asked me to continue treatment with antibiotics till Thursday when family technicians and trades workers come to see her. After that her expressed his wishes to transfer the patient to [facility]. Objective: GENERAL APPEARANCE: NAD, patient nonverbal HEENT: no scleral icterus, no JVD, EOMI CARDIOVASCULAR: S1S2 LUNGS: Diminished lung sounds bilaterally ABDOMEN: soft & mildly tender w palpation MUSCULOSKELETAL: no cyanosis, no swelling INTEGUMENT: no generalized pallor NEUROLOGICAL: Patient nonverbal, follows simple command Assessment and plan 61 year old W with expressive aphasia, CVA, DM type 2 here after left hip fracture 2/[address] Rush performed left hip hemiarthroplasty with greater trochanteric open reduction and internal fixation on 06/26/2021, and postop was unable to participate in PT due to language barrier, aphasia, and dementia, and course was c/b gram negative bacteremia 2/2 sacral ulcer and on 07/11/2021 had sacral debridement by Dr. Hernandez with wound growing Corynebacterium species, Enterococcus facalis, Streptococcus mitis, Streptococcus group G, E.coli, and Enterobacter cloacae complex. All generally pansensitive Sepsis Multifactorial. Most likely secondary to sacral wound and aspiration pneumonia CT chest showed There is moderate consolidative infiltrate or atelectasis in both lower lobes, and mild atelectasis or infiltrate in the right middle lobe and lingula. There are small bilateral pleural effusions right greater than left CT abdomen showed There is a very large amount of fecal material in the rectum compatible with fecal impaction. There is a very large amount of fecal material throughout the remainder of the colon, which is significantly dilated diffusely. The diameter of the cecum reaches 11.2 cm. There is no small bowel dilatation. Very mild scattered free fluid. Surgical team Dr. Pearson recommended soap enema and p.o. lactulose IV fluid, vancomycin IV, cefepime IV Blood culture ordered Prognosis is poor Gram-negative bacteremia secondary to sacral wound Necrotic sacral wound was initially debrided on 07/11/[address] Hernandez. Another debridement with wound vac on 07/19/2021 I restarted IV antibiotics Femoral neck fracture Status post left hip hemiarthroplasty with greater trochanteric open reduction and internal fixation on 06/26/2021 Diabetes mellitus Insulin sliding scale Detemir twice daily History of CVA Patient has residual left-sided weakness and aphasia MRI was done which demonstrated diffuse atrophy with ex vacuo dilatation of the ventricular system. Neurology team has a suspicion for severe frontotemporal dementia Can consider outpatient follow-up on discharge COVID-19 positive Asymptomatic Patient completed quarantine DVT prophylaxis Heparin subcutaneous VS,Fishbone, I+O VS, Fishbone, I+O Laboratory Tests 07/26/21 07:18 Vital Signs Date Time Temp Pulse Resp B/P (MAP) Pulse Ox O2 Delivery O2 Flow Rate FiO2 07/26/21 06:00 3.0 07/26/21 05:42 101.8 120 36 91 Nasal Cannula 07/26/21 05:35 112/71 (85) I&O- Last 24 Hours up to 6 AM 07/26/21 06:00 Intake Total 735 ml Output Total 175 ml Balance 560 ml ARACELI TORRES DO Jul 26, 2021 13:14
[2021-07-26] MEDS: NS 1,000 ML IV SCH ×2 (13:40→20:32)
[2021-07-26 14:16] VITALS: BP 98/54
[2021-07-26 16:00] VITALS: BP 92/58
[2021-07-26 20:00] VITALS: BP 93/55
[2021-07-26] MEDS: ATORVASTATIN 20 MG TAB PO SCH (20:31)
[2021-07-26] MEDS ORDERED: ONDANSETRON 4MG/2ML VIAL IV PRN (22:25)
[2021-07-26] MEDS ORDERED: HYOSCYAMINE SULFATE 0.125 MG SUBL TABLET PO PRN (22:25)
[2021-07-26] MEDS ORDERED: MORPHINE 2 MG/ML 1ML VIAL (J2270) IV PRN (22:25)
[2021-07-26] MEDS ORDERED: ATROPINE SULFATE 1% OP SOLN 2 ML BTL SL PRN (22:25)
[2021-07-26] MEDS ORDERED: LORazepam 1 MG TAB PO PRN (22:25)
[2021-07-26] MEDS ORDERED: FLEET ENEMA PR PRN (22:25)
[2021-07-26] MEDS ORDERED: BISACODYL 10 MG SUPP PR PRN (22:25)
[2021-07-26] MEDS ORDERED: LORazepam 2 MG/ML VIAL IV PRN (22:25)
[2021-07-26] MEDS ORDERED: SCOPOLAMINE 1MG TRANSDERMAL PATCH TOP PRN (22:25)
--- NOTE | 2021-07-26 22:27 | IPNPDOC ---
Date Seen The patient was seen on 07/26/21. Progress Note I was asked by Dr. Mejia to meet with the patient's and healthcare proxy, Mr. Gamal Mckeon this evening, as he is [place]-speaking, as am I, and the meeting had to be rescheduled to a later time in the evening. I met with Mr. Phillip at the patient's bedside. We discussed her current state of health, specifically sepsis and gram negative bacteremia with likely sources being her sacral decubitus ulcer and aspiration pneumonia. We discussed her poor prognosis in the setting of previous CVA which left her with residual L sided weakness and aphasia, as well as likely severe frontotemporal dementia. This multitude of conditions carries a grave prognosis, with an unlikely possibility for the patient to regain quality of life. Mr. Mckeon had arranged for a crap game box person to come and provide last rites to his . After this, he decided for comfort measures only, in order to minimize patient suffering. The MOLST form was discussed, signed and witnessed in the presence of the patient's nurse Chacha Byers. A [place] motel keeper via iPad was utilized for this purpose to ensure clear communication amongst all parties. 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 VS, I&O, 24H, Fishbone Vital Signs/I&O Vital Signs Date Time Temp Pulse Resp B/P (MAP) Pulse Ox O2 Delivery O2 Flow Rate FiO2 07/26/21 20:00 98.3 101 24 93/55 (68) 88 Nasal Cannula 3.0 I&O- Last 24 Hours up to 6 AM 07/26/21 06:00 Intake Total 735 ml Output Total 175 ml Balance 560 ml Laboratory Data 24H LABS Laboratory Tests 2 07/26/21 07:18: Neutrophils (%) (Auto) , Monocytes # (Auto) , Nucleated Red Blood Cells % (auto) 0.0, Neutrophils 83H, Band Neutrophils 4, Lymphocytes (Manual) 8L, Monocytes (Manual) 5, Anisocytosis 1+, Platelet Estimate INCREASED, Anion Gap 11, G lomerular Filtration Rate 21.8L, Lactic Acid Level 2.7*H, Calcium Level 8.1L, Magnesium Level 2.4, Random Vancomycin Level 6.3 07/26/21 11:44: Lactic Acid Followup at 4 Hours 1.7 07/26/21 12:00: Bedside Glucose (Misc Panel) 135H 07/26/21 17:52: Bedside Glucose (Misc Panel) 111 07/26/21 20:31: Bedside Glucose (Misc Panel) 103 CBC/BMP Laboratory Tests 07/26/21 07:18 Microbiology Microbiology 07/26/21 Blood Culture, Received Pending 07/26/21 Blood Culture, Received Pending 07/17/21 Gram Stain - Final, Complete 07/17/21 Wound Culture - Final, Complete Corynebacterium Species Enterococcus Faecalis Streptococcus Mitis Streptococcus Group G Escherichia Coli Enterobacter Cloacae Complex 07/17/21 Urine Culture - Final, Complete 07/17/21 Blood Culture - Final, Complete Enterobacter Cloacae Complex 07/17/21 Blood Culture - Final, Complete NO GROWTH AFTER 5 DAYS DORITA ROMERO MD Jul 26, 2021 22:27
[2021-07-27 08:54] LABS: BASO # 0.1 10^3/uL (0.0-0.2); BASO % 0.1 % (0.0-1.0); HEMATOCRIT 33.9 % (36.0-47.0); HEMOGLOBIN 10.5 g/dl (12.0-15.5); LYMPH # 1.5 10^3/uL (1.5-5.0); LYMPH % 3.2 % (24.0-44.0); MEAN CORPUSCULAR HEMOGLOBIN 28.7 pg (27.0-33.0); MEAN CORPUSCULAR VOLUME 92.6 fl (80.0-96.0); MONO % 3.7 % (2.0-8.0); NEUTROPHILS # 41.7 10^3/uL (1.5-8.5); NEUTROPHILS % 88.4 % (36.0-66.0); PLATELET COUNT, AUTOMATED 513 10^3/uL (150-450); RED BLOOD COUNT 3.66 10^6/uL (4.00-5.40)
[2021-07-27 09:35] LABS: ALBUMIN 1.3 GM/DL (3.2-5.2); BILIRUBIN,TOTAL 0.4 MG/DL (0.2-1.0); CALCIUM LEVEL 8.3 MG/DL (8.8-10.2); CREATININE FOR GFR 2.54 MG/DL (0.55-1.30); GLOMERULAR FILTRATION RATE 20.3 (>45); MAGNESIUM LEVEL 2.8 MG/DL (1.8-2.4); MONO # 1.8 10^3/uL (0.0-0.8); POTASSIUM SERUM 4.3 MEQ/L (3.5-5.1); TOTAL PROTEIN 5.9 GM/DL (6.4-8.2)
[2021-07-27 09:36] LABS: WHITE BLOOD COUNT 47.2 10^3/uL (4.0-10.0)
--- NOTE | 2021-07-27 12:13 | IPNPDOC ---
Text Note Date of Service The patient was seen on 07/27/21. 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 Rush performed left hip hemiarthroplasty with greater trochanteric open reduction and internal fixation on 06/26/2021, and postop was unable to participate in PT due to language barrier, aphasia, and dementia, and course was c/b gram negative bacteremia 2/2 sacral ulcer and on 07/11/2021 had sacral debridement by Dr. Hernandez with wound growing Corynebacterium species, Enterococcus facalis, Streptococcus mitis, Streptococcus group G, E.coli, and Enterobacter cloacae complex. All generally pansensitive. 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
[2021-07-29] MEDS: MORPHINE 2 MG/ML 1ML VIAL (J2270) IV PRN (15:45)
[2021-07-30] MEDS: MORPHINE 2 MG/ML 1ML VIAL (J2270) IV PRN (12:03)
[2021-07-31] MEDS: MORPHINE 2 MG/ML 1ML VIAL (J2270) IV PRN (14:37)
[2021-08-01] MEDS: MORPHINE 2 MG/ML 1ML VIAL (J2270) IV PRN ×2 (05:56→14:46)
[2021-08-04] MEDS: LOPERAMIDE 2 MG CAPLET PO PRN ×2 (18:22→22:05)
[2021-08-04] MEDS: FIBER-CON 625 MG TAB PO SCH (22:05)
[2021-08-04] MEDS: MORPHINE 2 MG/ML 1ML VIAL (J2270) IV PRN (22:41)
[2021-08-05] MEDS: FIBER-CON 625 MG TAB PO SCH ×2 (09:39→20:54)
[2021-08-05] MEDS: LOPERAMIDE 2 MG CAPLET PO PRN ×2 (14:17→20:54)
--- NOTE | 2021-08-05 22:10 | IPNPDOC ---
Subjective Date Seen The patient was seen on 08/05/21. Subjective Chief Complaint/HPI Mrs. Pearson is a 61 year old female with expressive aphasia, CVA, DM type 2 here after left hip fracture 2/2 mechanical fall. 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 When I went to see patient, she was sleeping comfortably. Objective Physical Examination General Exam: Positive: No Acute Distress; Negative: Alert Assessment /Plan Assessment Mrs. Pearson is a 61 year old female with expressive aphasia, CVA, DM type 2 here after left hip fracture 2/[address] Rush performed left hip hemiarthroplasty with greater trochanteric open reduction and internal fixation on 06/26/2021. Patient was unable to work with PT due to language barrier, aphasia, and dementia. Therapy was discontinued, and she was pending placement. On 07/11/2021, Dr. Hernandez was consulted for sacral ulcer which he debrided. Then on 07/17/2021, patient spiked a fever and developed sepsis. 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 Plan/VTE VTE Prophylaxis Ordered?: Yes Plan 1. Gram-negative bacteremia secondary to sacral wound 2. Gram-negative sepsis 4. Diabetes mellitus 5. History of CVA 6. COVID-19 positive Disposition: Patient's prognosis is poor. 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 Patient to continue on PROJECT DRILLING ENGINEER. VS, I&O, 24H, Fishbone Vital Signs/I&O Vital Signs Date Time Temp Pulse Resp B/P (MAP) Pulse Ox O2 Delivery O2 Flow Rate FiO2 08/05/21 09:00 3.0 08/04/21 22:51 16 Room Air I&O- Last 24 Hours up to 6 AM 08/05/21 06:00 Intake Total 1240 ml Output Total 1825 ml Balance -585 ml Laboratory Data Microbiology Microbiology 07/26/21 Blood Culture - Final, Complete NO GROWTH AFTER 5 DAYS 07/26/21 Blood Culture - Final, Complete NO GROWTH AFTER 5 DAYS DIMITRY LEÓN DO Aug 05, 2021 22:10
[2021-08-06] MEDS: FIBER-CON 625 MG TAB PO SCH ×2 (09:23→20:50)
[2021-08-06] MEDS: MORPHINE 2 MG/ML 1ML VIAL (J2270) IV PRN ×2 (15:56→20:51)
[2021-08-06] MEDS ORDERED: ONDANSETRON 4 MG ORAL DISINTEGRATING TAB PO PRN (21:10)
[2021-08-07] MEDS: FIBER-CON 625 MG TAB PO SCH ×2 (08:52→21:00)
[2021-08-07] MEDS: MORPHINE 10MG/0.5ML ORAL CONCENTRATE SOLUTION U/D SL PRN (16:53)
[2021-08-08] MEDS: MORPHINE 2 MG/ML 1ML VIAL (J2270) IV PRN (03:08)
[2021-08-08] MEDS: MORPHINE 10MG/0.5ML ORAL CONCENTRATE SOLUTION U/D SL PRN ×3 (03:19→17:39)
[2021-08-08] MEDS: FIBER-CON 625 MG TAB PO SCH ×2 (08:17→19:18)
[2021-08-09] MEDS: FIBER-CON 625 MG TAB PO SCH ×2 (09:00→19:21)
[2021-08-09] MEDS: MORPHINE 10MG/0.5ML ORAL CONCENTRATE SOLUTION U/D SL PRN (12:20)
--- NOTE | 2021-08-09 21:19 | IPNPDOC ---
Text Note Date of Service The patient was seen on 08/09/21. NOTE Informed by staff that patient had unfortunately at 2109 on 08/09/21. VS,Fishbone, I+O VS, Fishbone, I+O Vital Signs Date Time Temp Pulse Resp B/P (MAP) Pulse Ox O2 Delivery O2 Flow Rate FiO2 08/09/21 08:00 3.0 08/08/21 03:49 32 Nasal Cannula I&O- Last 24 Hours up to 6 AM 08/09/21 06:00 Intake Total 0 ml Output Total 300 ml Balance -300 ml BETTY OLVERA Aug 09, 2021 21:19
--- NOTE | 2021-08-11 14:05 | DS.PDOC ---
Discharge Summary General Date of Admission Jun 25, 2021 at 14:26 Date of Discharge 08/09/21 Discharge Summary PROCEDURES PERFORMED DURING STAY: Status post left hip hemiarthroplasty with greater trochanteric open reduction and internal fixation on 06/26/2021 DISCHARGE DIAGNOSES: Sepsis from infected sacral wound and aspiration pneumonia Gram-negative bacteremia secondary to sacral wound Gram-negative sepsis Infected sacral decubiti with polymicrobial elda Diabetes mellitus History of CVA with residual expressive aphasia and left-sided hemiparesis COVID-19 positive Dementia Fecal impaction COMPLICATIONS/CHIEF COMPLAINT: Femoral Neck Fracture, Pressure Ulcer. HOSPITAL COURSE: Mrs. Pearson is a 61 year old female with expressive aphasia, left hemiparesis from CVA, DM type 2 admitted for left hip fracture 2/[address] Rush performed left hip hemiarthroplasty with greater trochanteric open reduction and internal fixation on 06/26/2021. Patient was unable to work with PT due to language barrier, aphasia, and dementia. Therapy was discontinued, and she was pending placement. On 07/11/2021, Dr. Hernandez was consulted for sacral ulcer which he debrided. Then on 07/17/2021, patient spiked a fever and developed sepsis. Blood culture was positive for Enterobacter cloacae. Sacral decubiti culture was positive for polymicrobial elda including Enterobacter cloacae, E. coli, Streptococcus group G, Streptococcus mitis, Enterococcus faecalis, Corynebacterium species. Patient had a second debridement of the sacral decubitus on 07/19/2021. Patient patient finished a course of Zosyn. She spiked a fever again on 07/26/[address] scan of the chest showed moderate consolidative infiltrate or atelectasis in both lower lobes, and mild atelectasis or infiltrate in the right middle lobe and lingula. Compatible with bilateral pneumonia possible aspiration pneumonia. CT abdomen pelvis showed there is a very large amount of fecal material throughout the remainder of the colon, which is significantly dilated diffusely. The diameter of the cecum reaches 11.2 cm compatible with fecal impaction.Patient was restarted on antibiotics this time cefepime and vancomycin and aggressive bowel regimen with lactulose and soap enema. However patient's condition did not show any significant improvement. 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 Patient peacefully on 08/09/2021 at 9:10 PM DISPOSITION: 20 . Vital Signs/I&Os Vital Signs Date Time Temp Pulse Resp B/P (MAP) Pulse Ox O2 Delivery O2 Flow Rate FiO2 08/09/21 08:00 3.0 08/08/21 03:49 32 Nasal Cannula Laboratory Data Labs 24H Laboratory Tests 2 08/11/21 09:31: Lab Scanned Report Transfusion Record Discharge Medications Scheduled Aspirin (Aspirin) 81 Mg Chw, 325 MG PO DAILY, (Reported) Atorvastatin Calcium (Atorvastatin Calcium) 40 Mg Tablet, 40 MG PO QHS, (R eported) Docusate Sodium (Colace) 100 Mg Cap, 100 MG PO BID, (Reported) Glipizide (Glipizide) 5 Mg Tab, 4 MG PO DAILY, (Reported) Insulin Glargine,Hum.rec.anlog (Basaglar Kwikpen U-100) 100 Unit/1 Ml Insuln.pen, 65 UNITS SC BID, (Reported) Insulin NPH Human Isophane (Novolin N) 100 Unit/Ml Inj, 20 UNITS SC ACB, (Reported) Insulin NPH Human Isophane (Novolin N) 100 Unit/Ml Inj, 20 UNITS SC ACS, (Reported) Lisinopril (Lisinopril) 5 Mg Tablet, 5 MG PO DAILY, (Reported) Loratadine (Loratadine) 10 Mg Tablet, 10 MG PO DAILY, (Reported) [Metformin] , 1 TAB PO BID, (Reported) Scheduled PRN (Cepacol Sore Throat) 5.4 Mg Jhony, 5.4 MG MT Q2HP PRN for SORE THROAT, (Reported) Oxycodone HCl/Acetaminophen (Percocet 5-325 mg Tablet) 1 Tab Tab, 1 TAB PO Q4HP PRN for PAIN OR DISCOMFORT, (Reported) Oxycodone HCl/Acetaminophen (Percocet 5-325 mg Tablet) 1 Tab Tab, 2 TAB PO Q4HP PRN for PAIN SCALE 6-10, (Reported) Polyethylene Glycol 3350 (Polyethylene Glycol 3350) 17 Gm Powd.pack, 17 GM PO DAILY PRN for CONSTIPATION, (Reported) Triamcinolone Acet (Triamcinolone Acetonide 0.1% Oint) 15 Gm Oint...g., 1 APLCT TOP BID PRN for RASH, (Reported) APPLY TO AFFECTED AREA OF ARMS Allergies Coded Allergies: No Known Allergies (Unverified , 02/23/13) Talisha Kevin MD Aug 11, 2021 14:05
== END 2021-08-09 21:10 | disposition expired | DRG 463 ==
LOC: EDBD 09:58 → M ED 09:58 → M ED INP 14:26 → MERGE 14:26 → ENRESERV 15:55 → M 4MAIN 16:50 → M MS5PR 07-16 07:15 → M PCU 07-26 13:15 → M MS5PR 07-27 00:22
PROVIDERS: ADMIT Internal Medicine; ATTEND Internal Medicine Nephrology
PROC: 0QS704Z Reposition Left Upper Femur with Internal Fixation Device, Open Approach (ICD-10-PCS; 2021-06-26)
PROC: 0SRS0JZ Replacement of Left Hip Joint, Femoral Surface with Synthetic Substitute, Open Approach (ICD-10-PCS; principal; 2021-06-26 17:00)
PROC: 30233N1 Transfusion of Nonautologous Red Blood Cells into Peripheral Vein, Percutaneous Approach (ICD-10-PCS; 2021-06-28)
PROC: 0JB70ZZ Excision of Back Subcutaneous Tissue and Fascia, Open Approach (ICD-10-PCS; 2021-07-11)
DX: S72.112A Displaced fracture of greater trochanter of left femur, initial encounter for closed fracture (principal); U07.1 COVID-19; A41.59 Other Gram-negative sepsis; J69.0 Pneumonitis due to inhalation of food and vomit; L89.153 Pressure ulcer of sacral region, stage 3; L89.154 Pressure ulcer of sacral region, stage 4; T74.01XA Adult neglect or abandonment, confirmed, initial encounter; I69.352 Hemiplegia and hemiparesis following cerebral infarction affecting left dominant side; D62 Acute posthemorrhagic anemia; R47.01 Aphasia; G31.09 Other frontotemporal neurocognitive disorder; F02.80 Dementia in other diseases classified elsewhere, unspecified severity, without behavioral disturbance, psychotic disturbance, mood disturbance, and anxiety; I69.320 Aphasia following cerebral infarction; Z51.5 Encounter for palliative care; Z66 Do not resuscitate; E11.649 Type 2 diabetes mellitus with hypoglycemia without coma; B95.2 Enterococcus as the cause of diseases classified elsewhere; L89.150 Pressure ulcer of sacral region, unstageable; W19.XXXA Unspecified fall, initial encounter; B95.5 Unspecified streptococcus as the cause of diseases classified elsewhere; K56.41 Fecal impaction; B96.20 Unspecified Escherichia coli [E. coli] as the cause of diseases classified elsewhere; Y92.9 Unspecified place or not applicable; Y93.9 Activity, unspecified; Y99.8 Other external cause status; Z79.4 Long term (current) use of insulin; Z79.899 Other long term (current) drug therapy